=== PATIENT | male | born 1970 | race Two or more races ===

== ENCOUNTER 2024-01-12 14:15 | Outpatient (AMB) | payer MEDICARE, MEDICAID, SELFPAY ==
[2024-01-12 14:43] VITALS: BP 124/80; PULSE 73; O2SAT 97; BMI 35.1
--- NOTE | 2024-01-12 14:43 | HO.NEPHOV_ITS ---
HPI HPI Comments History of Present Illness Details I had the delight of seeing Pablo in follow-up of his renal transplant. 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 He underwent living unrelated renal transplant on 09/20/2023. He had stent removed on 10/10/2023. He had a panel reactive antibody of 25. Induction was done with Campath. He had no delayed graft function. He required no dialysis treatment posttransplant. CMV status of the donor was positive and recipient was positive as well. EBV status of the donor was negative and recipient was positive. Hepatitis-B core antibody for donor and recipient was negative. Hepatitis C virus antibody was negative for donor and recipient. Bk virus PCR was negative as of 12/21/2023. His immunosuppression included Envarsus and Mycophenolate. He did not have any rejection episodes post transplant. He had true randy on 40 the December 2023, results of which were pending at the time of this visit. He had some fluctuant blood pressure in the last few months which has been better. He had transaminitis which is resolved. His donor specific antibodies were negative as of 12/13/2023. His immunosuppression included Envarsus 2.5 mg daily and mycophenolate 540 mg twice daily. His Prophylaxis Therapy includes (Drug/Discontinuation Date) bactrim d/c 03/21/24, mycelex d/c 12/22/23 & valcyte d/c 03/16/24. He had no readmissions the 1st 3 months. Currently he feels well.He is requesting refill of sildenafil. [facility] Medical History (Updated 01/26/24 @ 06:45 by Harish Lentz MD) History of hepatitis C History of end stage renal disease Surgical History (Updated 01/12/24 @ 15:01 by Harish Lentz MD) History of kidney transplant Vital Signs 01/12/24 14:43 Height 5 ft 5 in Weight 211 lb BMI 35.1 BP 124/80 Blood Pressure Location Lt brachial Position Sitting Pulse 73 Pulse Source Pulse Oximeter Pulse Oximetry (%) 97 Oxygen Delivery Method Room Air Physical Exam Vital Signs: Last Vital Signs Pulse 73 01/12/24 14:43 BP 124/80 01/12/24 14:43 Pulse Ox 97 01/12/24 14:43 Oxygen Delivery Method Room Air 01/12/24 14:43 BMI result Body Mass Index 35.1 Const General: comfortable and no acute distress Orientation/consciousness: patient oriented x3 HEENT Head: Yes normocephalic Mouth: Normal oral and palatal mucosa present Eyes EOM: EOMs intact bilaterally Neck Neck: Yes supple Resp Auscultation: clear to auscultation bilaterally Cardio Jugular venous distension: no JVD Rate: regular rate GI Palpation (GI): Soft to palpation Auscultation: normal bowel sounds General: Yes no CVA tenderness Back/Spine/Pelvis Back: no CVA tenderness Skin General skin exam: no rashes or lesions noted Neuro General: patient oriented x3 and moves all extremities Extrem General: Yes no pedal edema Assessment & Plan Assessment & Plan (1) History of kidney transplant: Code(s): Z94.0 - Kidney transplant status (2) Hypertension: Code(s): I10 - Essential (primary) hypertension Qualifiers: Hypertension type: primary hypertension Qualified Code(s): I10 - Essential (primary) hypertension Plan 1. Allograft function: excellent function; serum creatinine stable 2. Immunosuppression: tolerating; monitoring levels; adjust accordingly 3. BP and volume status: may need to increase nifedipine if persistent; I think with increased activity and weight loss, this will improve. 4. Metabolic parameters: stable; follow up labs 5. Hematologic parameters: counts excellent 6. Prophylaxis/infection: reviewed; tolerating; no changes 7. Urologic: no issues 8. Other: needs to increase activity; weight loss emphasized Orders: Orders Creatinine 01/12/24 Z94.0 - Kidney transplant status Blood Urea Nitrogen 01/12/24 Z94.0 - Kidney transplant status Electrolytes 01/12/24 Z94.0 - Kidney transplant status Calcium 01/12/24 Z94.0 - Kidney transplant status Phosphorus 01/12/24 Z94.0 - Kidney transplant status Magnesium 01/12/24 Z94.0 - Kidney transplant status Complete Blood Count Auto Diff 01/12/24 Z94.0 - Kidney transplant status Tacrolimus Prograf 01/12/24 Z94.0 - Kidney transplant status Medications: New tadalafil (Cialis) administer approximately 30min before sexual activity; do not use more than 1 dose per 24hrs 20 mg PO DAILY PRN 15 tabs 4RF sexual activity tadalafil (Cialis) 20 mg PO DAILY 15 tabs 4RF Coding Level of Care Code Est Pt Level 4 (68195) Diagnoses History of kidney transplant Z94.0 Primary hypertension I10 Hypertension type: primary hypertension Results Reviewed Nephrology Results: Hgb 15.0 g/dl (14.0-18.0) 01/24/24 WBC 3.0 X10*3/uL (4.8-10.8) L 01/24/24 Plt Count 188 X10*3/uL (160-400) 01/24/24 Sodium 140 mmol/L (135-145) 01/24/24 Potassium 3.4 mmol/L (3.3-5.1) 01/24/24 Chloride 107 mmol/L (96-108) 01/24/24 Carbon Dioxide 25 mmol/L (22-29) 01/24/24 BUN 21 mg/dL (9-16) H 01/24/24 Creatinine 1.61 mg/dL (0.5-1.4) H 01/24/24 Calcium 10.0 mg/dL (8.4-10.2) 01/24/24 Phosphorus 2.2 mg/dL (2.7-4.5) L 01/24/24
== END 2024-01-12 15:09 | disposition home or self-care (01) ==
PROVIDERS: Visit Provider Internal Medicine Nephrology
DX: Z94.0 Kidney transplant status (principal); I10 Essential (primary) hypertension
CPT/HCPCS: 99214

== ENCOUNTER → 2024-01-12 14:15 | Outpatient (BNVA) | payer MEDICARE, MEDICAID, SELFPAY | PROVIDERS: Visit Provider Internal Medicine Nephrology | DX: I12.9 Hypertensive chronic kidney disease with stage 1 through stage 4 chronic kidney disease, or unspecified chronic kidney disease (principal); N18.6 End stage renal disease; Z86.19 Personal history of other infectious and parasitic diseases; Z94.0 Kidney transplant status | CPT/HCPCS: 99212 ==

== ENCOUNTER 2024-01-24 15:25 | Outpatient (REF) | payer MEDICARE, MEDICAID, SELFPAY ==
[2024-01-24 18:23] LABS: Anion Gap 11 (12-20); Blood Urea Nitrogen 21 mg/dL (9-16); Carbon Dioxide 25 mmol/L (22-29); Chloride 107 mmol/L (96-108); Estimated Glomerular Filt Rate 45; Magnesium 1.9 mg/dL (1.6-2.6); Phosphorus 2.2 mg/dL (2.7-4.5); Potassium 3.4 mmol/L (3.3-5.1); Sodium 140 mmol/L (135-145)
[2024-01-24 18:38] LABS: Basophils Percent Auto 0.7 % (0-2); Eosinophils Absolute Auto 0.2 X10*3/uL (0.0-0.4); Eosinophils Percent Auto 6.1 % (0-4); Hematocrit 46.3 % (42.0-52.0); Imm Gran Abs Auto 0.02 X10*3/uL (0.00-0.03); Imm Gran Pct Auto 0.7 % (0.0-0.4); Lymphocytes Absolute Auto 1.4 X10*3/uL (1.2-4.9); Lymphocytes Percent Auto 47.5 % (20-40); MANUAL DIFF FLAG SCAN; Mean Corpuscular HGB Conc 32.4 g/dl (31.0-36.0); Mean Corpuscular Hemoglobin 27.4 pg (27.0-33.0); Mean Corpuscular Volume 84.6 fL (80.0-98.0); Mean Platelet Volume 9.7 fL (9.4-12.4); Monocytes Absolute Auto 0.4 X10*3/uL (0.1-1.2); Monocytes Percent Auto 11.9 % (2-11); Neutrophils Percent Auto 33.1 % (45-73); Platelet Count 188 X10*3/uL (160-400); Red Blood Count 5.47 X10*6/uL (4.60-5.80); Red Cell Distribution Width 14.2 % (11.0-16.0); SCAN SMEAR FLAG 1
[2024-01-24 19:08] LABS: SLIDE REVIEW VERIFIED
== END 2024-01-24 15:26 | disposition home or self-care (01) ==
LOC: HO.HKASLDS 15:25
PROVIDERS: Visit Provider Internal Medicine Nephrology
DX: Z94.0 Kidney transplant status (principal)
CPT/HCPCS: 36415; 80051; 82310; 82565; 83735; 84100; 84520; 85025

== ENCOUNTER 2024-01-27 15:18 | Outpatient (AMB) | payer MEDICARE, MEDICAID, SELFPAY ==
[2024-01-27 15:24] VITALS: BP 132/80; PULSE 72; O2SAT 97; BMI 34.1
--- NOTE | 2024-01-27 15:24 | HO.NEPHOV_ITS ---
HPI HPI Comments History of Present Illness Details I had the delight of seeing Pablo in follow-up of his renal transplant. 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 He underwent living unrelated renal transplant on 09/20/2023. He had stent removed on 10/10/2023. He had a panel reactive antibody of 25. Induction was done with Campath. He had no delayed graft function. He required no dialysis treatment post transplant. CMV status of the donor was positive and recipient was positive as well. EBV status of the donor was negative and recipient was positive. Hepatitis-B core antibody for donor and recipient was negative. Hepatitis C virus antibody was negative for donor and recipient. Bk virus PCR was negative as of 12/21/2023. His immunosuppression included Envarsus and Mycophenolate. He did not have any rejection episodes post transplant. He had some fluctuant blood pressure in the last few months which has been better. He had transaminitis which is resolved. His donor specific antibodies were negative as of 12/13/2023. His immunosuppression included Envarsus 2.5 mg daily and mycophenolate 540 mg twice daily. His Prophylaxis Therapy includes (Drug/Discontinuation Date) bactrim d/c 03/21/24, mycelex d/c 12/22/23 & valcyte d/c 03/16/24. He had no readmissions the 1st 3 months. Currently he feels well. [facility] Medical History (Updated 01/26/24 @ 06:45 by Harish Lentz MD) History of hepatitis C History of end stage renal disease Surgical History History of kidney transplant Vital Signs 01/27/24 15:24 Height 5 ft 5 in Weight 205 lb BMI 34.1 BP 132/80 Blood Pressure Location Rt brachial Position Sitting Pulse 72 Pulse Source Pulse Oximeter Pulse Oximetry (%) 97 Oxygen Delivery Method Room Air Physical Exam Vital Signs: Last Vital Signs Pulse 72 01/27/24 15:24 BP 132/80 01/27/24 15:24 Pulse Ox 97 01/27/24 15:24 Oxygen Delivery Method Room Air 01/27/24 15:24 BMI result Body Mass Index 34.1 Const General: comfortable and no acute distress Orientation/consciousness: patient oriented x3 HEENT Head: Yes normocephalic Mouth: Normal oral and palatal mucosa present Eyes EOM: EOMs intact bilaterally Neck Neck: Yes supple Resp Auscultation: clear to auscultation bilaterally Cardio Jugular venous distension: no JVD Rate: regular rate GI Palpation (GI): Soft to palpation Auscultation: normal bowel sounds General: Yes no CVA tenderness Back/Spine/Pelvis Back: no CVA tenderness Skin General skin exam: no rashes or lesions noted Neuro General: patient oriented x3 and moves all extremities Extrem General: Yes no pedal edema Assessment & Plan Assessment & Plan (1) History of kidney transplant: Code(s): Z94.0 - Kidney transplant status (2) Hypertension: Code(s): I10 - Essential (primary) hypertension Qualifiers: Hypertension type: primary hypertension Qualified Code(s): I10 - Essential (primary) hypertension Plan 1. Allograft function: excellent function; serum creatinine stable 2. Immunosuppression: tolerating; monitoring levels; adjust accordingly 3. BP and volume status: may need to increase nifedipine if persistent; I think with increased activity and weight loss, this will improve. 4. Metabolic parameters: stable; follow up labs 5. Hematologic parameters: counts excellent 6. Prophylaxis/infection: reviewed; tolerating; no changes 7. Urologic: no issues 8. Other: needs to increase activity; weight loss emphasized Orders: Orders Tacrolimus Prograf 01/30/24 I10 - Essential (primary) hypertension, Z94.0 - Kidney transplant status Creatinine 01/30/24 I10 - Essential (primary) hypertension, Z94.0 - Kidney transplant status Complete Blood Count Auto Diff 01/30/24 I10 - Essential (primary) hypertension, Z94.0 - Kidney transplant status Protein Creatinine Ratio, Ur 01/30/24 I10 - Essential (primary) hypertension, Z94.0 - Kidney transplant status Electrolytes 01/30/24 I10 - Essential (primary) hypertension, Z94.0 - Kidney transplant status Calcium 01/30/24 I10 - Essential (primary) hypertension, Z94.0 - Kidney transplant status Blood Urea Nitrogen 01/30/24 I10 - Essential (primary) hypertension, Z94.0 - Kidney transplant status Medications: Refilled tadalafil (Cialis) administer approximately 30min before sexual activity; do not use more than 1 dose per 24hrs 20 mg PO DAILY PRN 15 tabs 4RF sexual activity Coding Level of Care Code Est Pt Level 4 (88586) Diagnoses History of kidney transplant Z94.0 Primary hypertension I10 Hypertension type: primary hypertension Results Reviewed Nephrology Results: Hgb 15.3 g/dl (14.0-18.0) 01/30/24 WBC 4.8 X10*3/uL (4.8-10.8) 01/30/24 Plt Count 188 X10*3/uL (160-400) 01/30/24 Sodium 142 mmol/L (135-145) 01/30/24 Potassium 3.4 mmol/L (3.3-5.1) 01/30/24 Chloride 106 mmol/L (96-108) 01/30/24 Carbon Dioxide 28 mmol/L (22-29) 01/30/24 BUN 19 mg/dL (9-16) H 01/30/24 Creatinine 1.52 mg/dL (0.5-1.4) H 01/30/24 Calcium 10.2 mg/dL (8.4-10.2) 01/30/24 Phosphorus 2.2 mg/dL (2.7-4.5) L 01/24/24 Urine Creatinine 72.00 mg/dL 01/30/24 Protein/Creatinin Ratio 0.29 (<0.2) H 01/30/24
== END 2024-01-27 15:46 | disposition home or self-care (01) ==
PROVIDERS: Visit Provider Internal Medicine Nephrology
DX: Z94.0 Kidney transplant status (principal); I10 Essential (primary) hypertension
CPT/HCPCS: 99214

== ENCOUNTER → 2024-01-27 15:18 | Outpatient (BNVA) | payer BC, MEDICARE, MEDICAID, SELFPAY | PROVIDERS: Visit Provider Internal Medicine Nephrology | DX: I10 Essential (primary) hypertension (principal); Z94.0 Kidney transplant status | CPT/HCPCS: 99212 ==

== ENCOUNTER 2024-01-30 08:12 | Outpatient (REF) | payer MEDICARE, MEDICAID, SELFPAY ==
[2024-01-30 10:41] LABS: MANUAL DIFF FLAG NO
[2024-01-30 10:50] LABS: Basophils Percent Auto 0.8 % (0-2); Eosinophils Absolute Auto 0.2 X10*3/uL (0.0-0.4); Eosinophils Percent Auto 3.8 % (0-4); Hematocrit 48.2 % (42.0-52.0); Hemoglobin 15.3 g/dl (14.0-18.0); Imm Gran Abs Auto 0.05 X10*3/uL (0.00-0.03); Lymphocytes Absolute Auto 1.7 X10*3/uL (1.2-4.9); Lymphocytes Percent Auto 35.1 % (20-40); Mean Corpuscular HGB Conc 31.7 g/dl (31.0-36.0); Mean Corpuscular Volume 85.2 fL (80.0-98.0); Mean Platelet Volume 9.5 fL (9.4-12.4); Monocytes Absolute Auto 0.6 X10*3/uL (0.1-1.2); Monocytes Percent Auto 12.5 % (2-11); Neutrophils Absolute Auto 2.2 x10*3/uL (2.0-8.3); Neutrophils Percent Auto 46.8 % (45-73); Platelet Count 188 X10*3/uL (160-400); Red Blood Count 5.66 X10*6/uL (4.60-5.80); Red Cell Distribution Width 14.3 % (11.0-16.0); White Blood Count 4.8 X10*3/uL (4.8-10.8)
[2024-01-30 11:35] LABS: Protein/Creatinine Ratio, Ur 0.29 (<0.2); Total Protein Urine Random 21 mg/dL (<12)
[2024-01-30 11:36] LABS: Anion Gap 11 (12-20); Blood Urea Nitrogen 19 mg/dL (9-16); Calcium 10.2 mg/dL (8.4-10.2); Carbon Dioxide 28 mmol/L (22-29); Chloride 106 mmol/L (96-108); Estimated Glomerular Filt Rate 48; Potassium 3.4 mmol/L (3.3-5.1); Sodium 142 mmol/L (135-145)
[2024-02-01 11:13] LABS: Tacrolimus Prograf 10.4 mcg/L
== END 2024-01-30 08:13 | disposition home or self-care (01) ==
LOC: HO.10HDL 08:12
PROVIDERS: Visit Provider Internal Medicine Nephrology
DX: I10 Essential (primary) hypertension (principal); Z94.0 Kidney transplant status
CPT/HCPCS: 36415; 80051; 80197; 82310; 82565; 82570; 84156; 84520; 85025

== ENCOUNTER 2024-02-24 15:22 | Outpatient (AMB) | payer BC, MEDICARE, MEDICAID, SELFPAY ==
--- NOTE | 2024-02-24 15:28 | HO.NEPHOV ---
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 He underwent living unrelated renal transplant on 09/20/2023. He had stent removed on 10/10/2023. He had a panel reactive antibody of 25. Induction was done with Campath. He had no delayed graft function. He required no dialysis treatment post transplant. CMV status of the donor was positive and recipient was positive as well. EBV status of the donor was negative and recipient was positive. Hepatitis-B core antibody for donor and recipient was negative. Hepatitis C virus antibody was negative for donor and recipient. Bk virus PCR was negative as of 12/21/2023. His immunosuppression included Envarsus and Mycophenolate. He did not have any rejection episodes post transplant. He had some fluctuant blood pressure in the last few months which has been better. He had transaminitis which is resolved. His donor specific antibodies were negative as of 12/13/2023. His immunosuppression included Envarsus 2.5 mg daily and mycophenolate 540 mg twice daily. His Prophylaxis Therapy includes (Drug/Discontinuation Date) bactrim d/c 03/21/24, mycelex d/c 12/22/23 & valcyte d/c 03/16/24. He had no readmissions the 1st 3 months. Currently he feels well. He has not had any recent blood work which he is going to do on coming Tuesday [facility] Medical History (Updated 01/26/24 @ 06:45 by Harish Lentz MD) History of hepatitis C History of end stage renal disease Surgical History History of kidney transplant Physical Exam Vital Signs: Last Vital Signs Pulse 72 02/24/24 15:29 BP 130/70 02/24/24 15:29 Pulse Ox 96 05/03/24 15:29 Oxygen Delivery Method Room Air 02/24/24 15:29 BMI result Body Mass Index 34.1 Const General: comfortable and no acute distress Orientation/consciousness: patient oriented x3 HEENT Head: Yes normocephalic Mouth: Normal oral and palatal mucosa present Eyes EOM: EOMs intact bilaterally Neck Neck: Yes supple Resp Auscultation: clear to auscultation bilaterally Cardio Jugular venous distension: no JVD Rate: regular rate GI Palpation (GI): Soft to palpation Auscultation: normal bowel sounds General: Yes no CVA tenderness Back/Spine/Pelvis Back: no CVA tenderness Skin General skin exam: no rashes or lesions noted Neuro General: patient oriented x3 and moves all extremities Extrem General: Yes no pedal edema Results Reviewed Nephrology Results: Hgb 15.3 g/dl (14.0-18.0) 01/30/24 WBC 4.8 X10*3/uL (4.8-10.8) 01/30/24 Plt Count 188 X10*3/uL (160-400) 01/30/24 Sodium 142 mmol/L (135-145) 01/30/24 Potassium 3.4 mmol/L (3.3-5.1) 01/30/24 Chloride 106 mmol/L (96-108) 01/30/24 Carbon Dioxide 28 mmol/L (22-29) 01/30/24 BUN 19 mg/dL (9-16) H 01/30/24 Creatinine 1.52 mg/dL (0.5-1.4) H 01/30/24 Calcium 10.2 mg/dL (8.4-10.2) 01/30/24 Phosphorus 2.2 mg/dL (2.7-4.5) L 01/24/24 Urine Creatinine 72.00 mg/dL 01/30/24 Protein/Creatinin Ratio 0.29 (<0.2) H 01/30/24 Assessment & Plan Assessment & Plan (1) History of kidney transplant: Code(s): Z94.0 - Kidney transplant status Category: Surgical (2) Hypertension: Code(s): I10 - Essential (primary) hypertension Category: Medical Qualifiers: Hypertension type: primary hypertension Qualified Code(s): I10 - Essential (primary) hypertension Plan 1. Allograft function: excellent function; serum creatinine stable 2. Immunosuppression: tolerating; monitoring levels; adjust accordingly; Prophylaxis Therapy includes (Drug/Discontinuation Date) bactrim d/c 03/21/24, mycelex d/c 12/22/23 & valcyte d/c 03/16/24. 3. BP and volume status: may need to increase nifedipine if BP high & persistent; I think with increased activity and weight loss, this will improve. 4. Metabolic parameters: stable; follow up labs 5. Hematologic parameters: counts excellent 6. Prophylaxis/infection: reviewed; tolerating; no changes 7. Urologic: no issues 8. Other: needs to increase activity; weight loss emphasized Orders: Orders Creatinine Today I10 - Essential (primary) hypertension, Z94.0 - Kidney transplant status Electrolytes Today I10 - Essential (primary) hypertension, Z94.0 - Kidney transplant status Phosphorus Today I10 - Essential (primary) hypertension, Z94.0 - Kidney transplant status Tacrolimus Prograf Today I10 - Essential (primary) hypertension, Z94.0 - Kidney transplant status Blood Urea Nitrogen 3 Weeks I10 - Essential (primary) hypertension, Z94.0 - Kidney transplant status Electrolytes 3 Weeks I10 - Essential (primary) hypertension, Z94.0 - Kidney transplant status Blood Urea Nitrogen Today I10 - Essential (primary) hypertension, Z94.0 - Kidney transplant status Calcium Today I10 - Essential (primary) hypertension, Z94.0 - Kidney transplant status Alanine Aminotransferase Today I10 - Essential (primary) hypertension, Z94.0 - Kidney transplant status Aspartate Amino Transferase Today I10 - Essential (primary) hypertension, Z94.0 - Kidney transplant status Other Ref Test - Misc Today I10 - Essential (primary) hypertension, Z94.0 - Kidney transplant status Other Ref Test - Misc 3 Days I10 - Essential (primary) hypertension, Z94.0 - Kidney transplant status Creatinine 3 Weeks I10 - Essential (primary) hypertension, Z94.0 - Kidney transplant status Calcium 3 Weeks I10 - Essential (primary) hypertension, Z94.0 - Kidney transplant status Phosphorus 3 Weeks I10 - Essential (primary) hypertension, Z94.0 - Kidney transplant status Magnesium Today I10 - Essential (primary) hypertension, Z94.0 - Kidney transplant status Coding Level of Care Code Est Pt Level 4 (18352) Diagnoses History of kidney transplant Z94.0 Primary hypertension I10 Hypertension type: primary hypertension
[2024-02-24 15:29] VITALS: BP 130/70; PULSE 72; O2SAT 96; BMI 34.1
== END 2024-02-24 15:56 | disposition home or self-care (01) ==
PROVIDERS: PCP Physician Assistant; Visit Provider Internal Medicine Nephrology
DX: Z94.0 Kidney transplant status (principal); I10 Essential (primary) hypertension
CPT/HCPCS: 99214

== ENCOUNTER → 2024-02-24 15:22 | Outpatient (BNVA) | payer BC, MEDICARE, MEDICAID, SELFPAY | PROVIDERS: PCP Physician Assistant; Visit Provider Internal Medicine Nephrology | DX: I10 Essential (primary) hypertension (principal); Z94.0 Kidney transplant status | CPT/HCPCS: 99212 ==

== ENCOUNTER 2024-02-27 08:31 | Outpatient (REF) | payer BC, MEDICARE, MEDICAID, SELFPAY ==
[2024-02-27 11:12] LABS: Alanine Aminotransferase 24 U/L (0-40); Anion Gap 14 (12-20); Aspartate Amino Transferase 15 U/L (5-37); Blood Urea Nitrogen 22 mg/dL (9-16); Calcium 10.3 mg/dL (8.4-10.2); Carbon Dioxide 23 mmol/L (22-29); Chloride 107 mmol/L (96-108); Estimated Glomerular Filt Rate 44; Magnesium 1.7 mg/dL (1.6-2.6); Phosphorus 2.3 mg/dL (2.7-4.5); Potassium 3.5 mmol/L (3.3-5.1); Sodium 140 mmol/L (135-145)
[2024-02-28 11:34] LABS: Tacrolimus Prograf 17.7 mcg/L
== END 2024-02-27 08:32 | disposition home or self-care (01) ==
LOC: HO.10HDL 08:31
PROVIDERS: Visit Provider Internal Medicine Nephrology
DX: I10 Essential (primary) hypertension (principal); Z94.0 Kidney transplant status; Z79.899 Other long term (current) drug therapy
CPT/HCPCS: 36415; 80051; 80197; 82310; 82565; 83735; 84100; 84450; 84460; 84520; 87799

== ENCOUNTER 2024-03-09 08:00 | Outpatient (REF) | payer BC, MEDICARE, MEDICAID, SELFPAY ==
[2024-03-09 11:25] LABS: Anion Gap 13 (12-20); Blood Urea Nitrogen 21 mg/dL (9-16); Carbon Dioxide 26 mmol/L (22-29); Chloride 107 mmol/L (96-108); Estimated Glomerular Filt Rate 51; Phosphorus 2.4 mg/dL (2.7-4.5); Potassium 3.8 mmol/L (3.3-5.1); Sodium 142 mmol/L (135-145)
[2024-03-10 13:08] LABS: Tacrolimus Prograf 7.9 mcg/L
== END 2024-03-09 08:01 | disposition home or self-care (01) ==
LOC: HO.10HDL 08:00
PROVIDERS: Visit Provider Internal Medicine Nephrology
DX: I10 Essential (primary) hypertension (principal); Z94.0 Kidney transplant status
CPT/HCPCS: 36415; 80051; 80197; 82310; 82565; 84100; 84520

== ENCOUNTER 2024-03-14 15:36 | Outpatient (AMB) | payer BC, MEDICARE, MEDICAID, SELFPAY ==
--- NOTE | 2024-03-14 15:41 | HO.NEPHOV_ITS ---
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 He underwent living unrelated renal transplant on 09/20/2023. He had stent removed on 10/10/2023. He had a panel reactive antibody of 25. Induction was done with Campath. He had no delayed graft function. He required no dialysis treatment post transplant. CMV status of the donor was positive and recipient was positive as well. EBV status of the donor was negative and recipient was positive. Hepatitis-B core antibody for donor and recipient was negative. Hepatitis C virus antibody was negative for donor and recipient. Bk virus PCR was negative as of 12/21/2023. His immunosuppression included Envarsus and Mycophenolate. He did not have any rejection episodes post transplant. He had some fluctuant blood pressure in the last few months which has been better. He had transaminitis which is resolved. His donor specific antibodies were negative as of 12/13/2023. His immunosuppression included Envarsus 2.5 mg daily and mycophenolate 540 mg twice daily. His Prophylaxis Therapy includes (Drug/Discontinuation Date) bactrim d/c 03/21/24, mycelex d/c 12/22/23 & valcyte d/c 03/16/24. He had no readmissions the 1st 3 months. Currently he feels well. [facility] Medical History (Updated 01/26/24 @ 06:45 by Harish Lentz MD) History of hepatitis C History of end stage renal disease Surgical History History of kidney transplant Physical Exam Vital Signs: Last Vital Signs Pulse 73 03/14/24 15:42 BP 114/70 03/14/24 15:42 Pulse Ox 96 03/14/24 15:42 Oxygen Delivery Method Room Air 03/14/24 15:42 BMI result Body Mass Index 34.0 Const General: comfortable and no acute distress Orientation/consciousness: patient oriented x3 HEENT Head: Yes normocephalic Mouth: Normal oral and palatal mucosa present Eyes EOM: EOMs intact bilaterally Neck Neck: Yes supple Resp Auscultation: clear to auscultation bilaterally Cardio Jugular venous distension: no JVD Rate: regular rate GI Palpation (GI): Soft to palpation Auscultation: normal bowel sounds General: Yes no CVA tenderness Back/Spine/Pelvis Back: no CVA tenderness Skin General skin exam: no rashes or lesions noted Neuro General: patient oriented x3 and moves all extremities Extrem General: Yes no pedal edema Results Reviewed Nephrology Results: Hgb 15.3 g/dl (14.0-18.0) 01/30/24 WBC 4.8 X10*3/uL (4.8-10.8) 01/30/24 Plt Count 188 X10*3/uL (160-400) 01/30/24 Sodium 142 mmol/L (135-145) 03/09/24 Potassium 3.8 mmol/L (3.3-5.1) 03/09/24 Chloride 107 mmol/L (96-108) 03/09/24 Carbon Dioxide 26 mmol/L (22-29) 03/09/24 BUN 21 mg/dL (9-16) H 03/09/24 Creatinine 1.45 mg/dL (0.5-1.4) H 03/09/24 Calcium 10.0 mg/dL (8.4-10.2) 03/09/24 Phosphorus 2.4 mg/dL (2.7-4.5) L 03/09/24 Urine Creatinine 72.00 mg/dL 01/30/24 Protein/Creatinin Ratio 0.29 (<0.2) H 01/30/24 Assessment & Plan Assessment & Plan (1) Hypertension: Code(s): I10 - Essential (primary) hypertension Category: Medical Qualifiers: Hypertension type: primary hypertension Qualified Code(s): I10 - Essential (primary) hypertension (2) History of kidney transplant: Code(s): Z94.0 - Kidney transplant status Category: Surgical Plan 1. Allograft function: excellent function; serum creatinine stable 2. Immunosuppression: tolerating; monitoring levels; adjust accordingly; Prophylaxis Therapy includes (Drug/Discontinuation Date) bactrim d/c 03/21/24, mycelex d/c 12/22/23 & valcyte d/c 03/16/24. 3. BP and volume status: may need to increase nifedipine if BP high & persistent; I think with increased activity and weight loss, this will improve. 4. Metabolic parameters: stable; follow up labs 5. Hematologic parameters: counts excellent 6. Prophylaxis/infection: reviewed; tolerating; no changes 7. Urologic: no issues 8. Other: needs to increase activity; weight loss emphasized Orders: Orders Blood Urea Nitrogen Today I10 - Essential (primary) hypertension, Z94.0 - Kidney transplant status Alanine Aminotransferase Today I10 - Essential (primary) hypertension, Z94.0 - Kidney transplant status Aspartate Amino Transferase Today I10 - Essential (primary) hypertension, Z94.0 - Kidney transplant status Tacrolimus Prograf Today I10 - Essential (primary) hypertension, Z94.0 - Kidney transplant status Complete Blood Count Auto Diff Today I10 - Essential (primary) hypertension, Z94.0 - Kidney transplant status Electrolytes Today I10 - Essential (primary) hypertension, Z94.0 - Kidney transplant status Creatinine Today I10 - Essential (primary) hypertension, Z94.0 - Kidney transplant status Calcium Today I10 - Essential (primary) hypertension, Z94.0 - Kidney transplant status Phosphorus Today I10 - Essential (primary) hypertension, Z94.0 - Kidney transpl ant status Magnesium Today I10 - Essential (primary) hypertension, Z94.0 - Kidney transplant status Coding Level of Care Code Est Pt Level 4 (57542) Diagnoses Primary hypertension I10 Hypertension type: primary hypertension History of kidney transplant Z94.0
[2024-03-14 15:42] VITALS: BP 114/70; PULSE 73; O2SAT 96; BMI 34.0
== END 2024-03-14 16:08 | disposition home or self-care (01) ==
LOC: HO.HKA 15:36
PROVIDERS: PCP Physician Assistant; Visit Provider Internal Medicine Nephrology
DX: I10 Essential (primary) hypertension (principal); Z94.0 Kidney transplant status
CPT/HCPCS: 99214

== ENCOUNTER → 2024-03-14 15:36 | Outpatient (BNVA) | payer BC, MEDICARE, MEDICAID, SELFPAY | PROVIDERS: PCP Physician Assistant; Visit Provider Internal Medicine Nephrology | DX: I10 Essential (primary) hypertension (principal); Z94.0 Kidney transplant status | CPT/HCPCS: 99212 ==

== ENCOUNTER 2024-04-11 09:13 | Outpatient (REF) | payer BC, MEDICARE, MEDICAID, SELFPAY ==
[2024-04-11 11:37] LABS: MANUAL DIFF FLAG NO
[2024-04-11 11:42] LABS: Basophils Percent Auto 0.4 % (0-2); Eosinophils Absolute Auto 0.2 X10*3/uL (0.0-0.4); Eosinophils Percent Auto 2.9 % (0-4); Hematocrit 49.6 % (42.0-52.0); Hemoglobin 15.4 g/dl (14.0-18.0); Imm Gran Abs Auto 0.01 X10*3/uL (0.00-0.03); Imm Gran Pct Auto 0.2 % (0.0-0.4); Lymphocytes Absolute Auto 1.7 X10*3/uL (1.2-4.9); Lymphocytes Percent Auto 29.9 % (20-40); Mean Corpuscular Hemoglobin 26.8 pg (27.0-33.0); Mean Corpuscular Volume 86.4 fL (80.0-98.0); Monocytes Absolute Auto 0.5 X10*3/uL (0.1-1.2); Monocytes Percent Auto 9.3 % (2-11); Neutrophils Absolute Auto 3.2 x10*3/uL (2.0-8.3); Neutrophils Percent Auto 57.3 % (45-73); Platelet Count 170 X10*3/uL (160-400); Red Blood Count 5.74 X10*6/uL (4.60-5.80); Red Cell Distribution Width 14.4 % (11.0-16.0); White Blood Count 5.6 X10*3/uL (4.8-10.8)
[2024-04-11 12:08] LABS: Alanine Aminotransferase 24 U/L (0-40); Anion Gap 11 (12-20); Aspartate Amino Transferase 17 U/L (5-37); Blood Urea Nitrogen 21 mg/dL (9-16); Calcium 10.1 mg/dL (8.4-10.2); Carbon Dioxide 32 mmol/L (22-29); Chloride 105 mmol/L (96-108); Estimated Glomerular Filt Rate 45; Magnesium 1.7 mg/dL (1.6-2.6); Phosphorus 2.8 mg/dL (2.7-4.5); Sodium 145 mmol/L (135-145)
[2024-04-12 13:14] LABS: Tacrolimus Prograf 5.3 mcg/L
== END 2024-04-11 09:14 | disposition home or self-care (01) ==
LOC: HO.10HDL 09:13
PROVIDERS: Visit Provider Internal Medicine Nephrology
DX: I10 Essential (primary) hypertension (principal); Z94.0 Kidney transplant status
CPT/HCPCS: 36415; 80051; 80197; 82310; 82565; 83735; 84100; 84450; 84460; 84520; 85025

== ENCOUNTER 2024-04-18 15:26 | Outpatient (AMB) | payer BC, MEDICARE, SELFPAY ==
--- NOTE | 2024-04-18 15:26 | HO.NEPHOV_ITS ---
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 He underwent living unrelated renal transplant on . He had stent removed on 10/10/2023. He had a panel reactive antibody of 25. Induction was done with Campath. He had no delayed graft function. He required no dialysis treatment post transplant. CMV status of the donor was positive and recipient was positive as well. EBV status of the donor was negative and recipient was positive. Hepatitis-B core antibody for donor and recipient was negative. Hepatitis C virus antibody was negative for donor and recipient. Bk virus PCR was negative as of 12/21/2023. His immunosuppression included Envarsus and Mycophenolate. He did not have any rejection episodes post transplant. He had some fluctuant blood pressure in the last few months which has been better. He had transaminitis which is resolved. His donor specific antibodies were negative as of 12/13/2023. His immunosuppression included Envarsus 2.5 mg daily and mycophenolate 540 mg twice daily. His Prophylaxis Therapy included (Drug/Discontinuation Date) bactrim d/c 03/21/24, mycelex d/c 12/22/23 & valcyte d/c 03/16/24. He had no readmissions the 1st 3 months. Currently he feels well. [facility] Medical History (Updated 01/26/24 @ 06:45 by Harish Lentz MD) History of hepatitis C History of end stage renal disease Surgical History History of kidney transplant Review of Systems Const All systems reviewed & are unremarkable except as noted in HPI and below Physical Exam Vital Signs: Last Vital Signs Pulse 76 04/18/24 15:27 BP 110/60 04/18/24 15:27 Pulse Ox 96 04/18/24 15:27 Oxygen Delivery Method Room Air 04/18/24 15:27 BMI result Body Mass Index 34.1 Const General: comfortable and no acute distress Orientation/consciousness: patient oriented x3 HEENT Head: Yes normocephalic Mouth: Normal oral and palatal mucosa present Eyes EOM: EOMs intact bilaterally Neck Neck: Yes supple Resp Auscultation: clear to auscultation bilaterally Cardio Jugular venous distension: no JVD Rate: regular rate GI Palpation (GI): Soft to palpation Auscultation: normal bowel sounds General: Yes no CVA tenderness Back/Spine/Pelvis Back: no CVA tenderness Skin General skin exam: no rashes or lesions noted Neuro General: patient oriented x3 and moves all extremities Extrem General: Yes no pedal edema Results Reviewed Nephrology Results: Hgb 15.4 g/dl (14.0-18.0) 04/11/24 WBC 5.6 X10*3/uL (4.8-10.8) 04/11/24 Plt Count 170 X10*3/uL (160-400) 04/11/24 Sodium 145 mmol/L (135-145) 04/11/24 Potassium 3.0 mmol/L (3.3-5.1) L 04/11/24 Chloride 105 mmol/L (96-108) 04/11/24 Carbon Dioxide 32 mmol/L (22-29) H 04/11/24 BUN 21 mg/dL (9-16) H 04/11/24 Creatinine 1.60 mg/dL (0.5-1.4) H 04/11/24 Calcium 10.1 mg/dL (8.4-10.2) 04/11/24 Phosphorus 2.8 mg/dL (2.7-4.5) 04/11/24 Urine Creatinine 72.00 mg/dL 01/30/24 Protein/Creatinin Ratio 0.29 (<0.2) H 01/30/24 Assessment & Plan Assessment & Plan (1) History of kidney transplant: Code(s): Z94.0 - Kidney transplant status Category: Surgical (2) Hypertension: Code(s): I10 - Essential (primary) hypertension Category: Medical Qualifiers: Hypertension type: primary hypertension Qualified Code(s): I10 - Essential (primary) hypertension Plan 1. Allograft function: excellent function; serum creatinine stable 2. Immunosuppression: tolerating; monitoring levels; adjust accordingly; Prophylaxis Therapy included (Drug/Discontinuation Date) bactrim d/c 03/21/24, mycelex d/c 12/22/23 & valcyte d/c 03/16/24. 3. BP and volume status: Vol status optimal. BP at goal 4. Metabolic parameters: stable; follow up labs 5. Hematologic parameters: counts excellent 6. Prophylaxis/infection: reviewed; tolerating; no changes 7. Urologic: no issues 8. Other: needs to increase activity; weight loss emphasized Orders: Orders Tacrolimus Prograf 04/18/24 I10 - Essential (primary) hypertension, Z94.0 - Kidney transplant status Creatinine 04/18/24 I10 - Essential (primary) hypertension, Z94.0 - Kidney transplant status Blood Urea Nitrogen 04/18/24 I10 - Essential (primary) hypertension, Z94.0 - Kidney transplant status Calcium 04/18/24 I10 - Essential (primary) hypertension, Z94.0 - Kidney transplant status Complete Blood Count Auto Diff 04/18/24 I10 - Essential (primary) hypertension, Z94.0 - Kidney transplant status Electrolytes 04/18/24 I10 - Essential (primary) hypertension, Z94.0 - Kidney transplant status Magnesium 04/18/24 I10 - Essential (primary) hypertension, Z94.0 - Kidney transplant status Coding Level of Care Code Est Pt Level 4 (35744) Diagnoses History of kidney transplant Z94.0 Primary hypertension I10 Hypertension type: primary hypertension
[2024-04-18 15:27] VITALS: BP 110/60; PULSE 76; O2SAT 96; BMI 34.1
== END 2024-04-18 16:02 | disposition home or self-care (01) ==
PROVIDERS: PCP Physician Assistant; Visit Provider Internal Medicine Nephrology
DX: Z94.0 Kidney transplant status (principal); I10 Essential (primary) hypertension
CPT/HCPCS: 99214

== ENCOUNTER → 2024-04-18 15:26 | Outpatient (BNVA) | payer BC, MEDICARE, MEDICAID, SELFPAY | PROVIDERS: PCP Physician Assistant; Visit Provider Internal Medicine Nephrology ==

== ENCOUNTER 2024-05-04 08:11 | Outpatient (REF) | payer BC, MEDICARE, SELFPAY ==
[2024-05-04 11:21] LABS: Anion Gap 11 (12-20); Blood Urea Nitrogen 15 mg/dL (9-16); Calcium 10.3 mg/dL (8.4-10.2); Carbon Dioxide 29 mmol/L (22-29); Chloride 105 mmol/L (96-108); Estimated Glomerular Filt Rate 47; Magnesium 1.8 mg/dL (1.6-2.6); Potassium 3.6 mmol/L (3.3-5.1); Sodium 141 mmol/L (135-145)
[2024-05-04 11:23] LABS: MANUAL DIFF FLAG NO
[2024-05-04 11:37] LABS: Basophils Absolute Auto 0.1 X10*3/uL (0.0-0.2); Basophils Percent Auto 0.8 % (0-2); Eosinophils Absolute Auto 0.2 X10*3/uL (0.0-0.4); Eosinophils Percent Auto 2.9 % (0-4); Hematocrit 51.3 % (42.0-52.0); Hemoglobin 16.1 g/dl (14.0-18.0); Imm Gran Abs Auto 0.02 X10*3/uL (0.00-0.03); Imm Gran Pct Auto 0.3 % (0.0-0.4); Lymphocytes Absolute Auto 1.9 X10*3/uL (1.2-4.9); Lymphocytes Percent Auto 28.5 % (20-40); Mean Corpuscular HGB Conc 31.4 g/dl (31.0-36.0); Mean Corpuscular Hemoglobin 26.9 pg (27.0-33.0); Mean Corpuscular Volume 85.6 fL (80.0-98.0); Mean Platelet Volume 9.5 fL (9.4-12.4); Monocytes Absolute Auto 0.4 X10*3/uL (0.1-1.2); Monocytes Percent Auto 6.1 % (2-11); Neutrophils Percent Auto 61.4 % (45-73); Platelet Count 196 X10*3/uL (160-400); Red Blood Count 5.99 X10*6/uL (4.60-5.80); Red Cell Distribution Width 14.4 % (11.0-16.0); White Blood Count 6.6 X10*3/uL (4.8-10.8)
[2024-05-05 16:14] LABS: Tacrolimus Prograf 7.4 mcg/L
== END 2024-05-04 08:12 | disposition home or self-care (01) ==
LOC: HO.10HDL 08:11
PROVIDERS: Visit Provider Internal Medicine Nephrology
DX: I10 Essential (primary) hypertension (principal); Z94.0 Kidney transplant status; Z79.899 Other long term (current) drug therapy
CPT/HCPCS: 36415; 80051; 80197; 82310; 82565; 83735; 84520; 85025

== ENCOUNTER 2024-05-09 15:14 | Outpatient (AMB) | payer BC, MEDICARE, SELFPAY ==
[2024-05-09 15:28] VITALS: BP 116/70; PULSE 84; O2SAT 96; BMI 34.8
--- NOTE | 2024-05-09 15:28 | HO.NEPHOV_ITS ---
Vital Signs 05/09/24 15:28 Height 5 ft 5 in Weight 209 lb BMI 34.8 BP 116/70 Blood Pressure Location Rt brachial Position Sitting Pulse 84 Pulse Source Pulse Oximeter Pulse Oximetry (%) 96 Oxygen Delivery Method Room Air Intake Visit Reasons: Transplant/ Conf Accompanied by: Self / Same As Patient Allergies Penicillins Allergy (Mild, Verified 05/09/24 15:30) Unknown HPI Comments Details: I had the delight of seeing Pablo in follow-up of his renal transplant. 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 He underwent living unrelated renal transplant on 09/20/2023. He had stent removed on 10/10/2023. He had a panel reactive antibody of 25. Induction was done with Campath. He had no delayed graft function. He required no dialysis treatment post transplant. CMV status of the donor was positive and recipient was positive as well. EBV status of the donor was negative and recipient was positive. Hepatitis-B core antibody for donor and recipient was negative. Hepatitis C virus antibody was negative for donor and recipient. Bk virus PCR was negative as of 12/21/2023. His immunosuppression included Envarsus and Mycophenolate. He did not have any rejection episodes post transplant. He had some fluctuant blood pressure in the last few months which has been better. He had transaminitis which is resolved. His donor specific antibodies were negative as of 12/13/2023. His immunosuppression included Envarsus 2.5 mg daily and mycophenolate 540 mg twice daily. His Prophylaxis Therapy included (Drug/Discontinuation Date) bactrim d/c ed 03/21/24, mycelex d/c ed 12/22/23 & valcyte d/c ed 03/16/24. He had no readmissions the 1st 3 months. Currently he feels well. [facility] Medical History (Updated 01/26/24 @ 06:45 by Harish Lentz MD) History of hepatitis C History of end stage renal disease Surgical History History of kidney transplant Physical Exam Vital Signs: Last Vital Signs Pulse 84 05/09/24 15:28 BP 116/70 05/09/24 15:28 Pulse Ox 96 05/09/24 15:28 Oxygen Delivery Method Room Air 05/09/24 15:28 BMI result Body Mass Index 34.8 Const General: comfortable and no acute distress Orientation/consciousness: patient oriented x3 HEENT Head: Yes normocephalic Mouth: Normal oral and palatal mucosa present Eyes EOM: EOMs intact bilaterally Neck Neck: Yes supple Resp Auscultation: clear to auscultation bilaterally Cardio Jugular venous distension: no JVD Rate: regular rate GI Palpation (GI): Soft to palpation Auscultation: normal bowel sounds General: Yes no CVA tenderness Back/Spine/Pelvis Back: no CVA tenderness Skin General skin exam: no rashes or lesions noted Neuro General: patient oriented x3 and moves all extremities Extrem General: Yes no pedal edema Results Reviewed Nephrology Results: Hgb 16.1 g/dl (14.0-18.0) 05/04/24 WBC 6.6 X10*3/uL (4.8-10.8) 05/04/24 Plt Count 196 X10*3/uL (160-400) 05/04/24 Sodium 141 mmol/L (135-145) 05/04/24 Potassium 3.6 mmol/L (3.3-5.1) 05/04/24 Chloride 105 mmol/L (96-108) 05/04/24 Carbon Dioxide 29 mmol/L (22-29) 05/04/24 BUN 15 mg/dL (9-16) 05/04/24 Creatinine 1.56 mg/dL (0.5-1.4) H 05/04/24 Calcium 10.3 mg/dL (8.4-10.2) H 05/04/24 Phosphorus 2.8 mg/dL (2.7-4.5) 04/11/24 Urine Creatinine 72.00 mg/dL 01/30/24 Protein/Creatinin Ratio 0.29 (<0.2) H 01/30/24 Assessment & Plan Assessment & Plan (1) History of kidney transplant: Code(s): Z94.0 - Kidney transplant status Category: Surgical (2) Hypertension: Code(s): I10 - Essential (primary) hypertension Category: Medical Qualifiers: Hypertension type: primary hypertension Qualified Code(s): I10 - Essential (primary) hypertension Plan 1. Allograft function: excellent function; serum creatinine stable 2. Immunosuppression: tolerating; monitoring levels; adjust accordingly; Prophylaxis Therapy included (Drug/Discontinuation Date) bactrim d/c ed 03/21/24, mycelex d/c ed 12/22/23 & valcyte d/c ed 03/16/24. 3. BP and volume status: Vol status optimal. BP at goal 4. Metabolic parameters: stable; follow up labs 5. Hematologic parameters: counts excellent 6. Prophylaxis/infection: reviewed; tolerating; no changes 7. Urologic: no issues 8. Other: needs to increase activity; weight loss emphasized Orders: Orders Tacrolimus Prograf Today I10 - Essential (primary) hypertension, Z94.0 - Kidney transplant status Creatinine Today I10 - Essential (primary) hypertension, Z94.0 - Kidney transplant status Electrolytes Today I10 - Essential (primary) hypertension, Z94.0 - Kidney transplant status Calcium Today I10 - Essential (primary) hypertension, Z94.0 - Kidney transplant status Complete Blood Count Auto Diff Today I10 - Essential (primary) hypertension, Z94.0 - Kidney transplant status Hemoglobin A1c Today I10 - Essential (primary) hypertension, Z94.0 - Kidney t ransplant status Blood Urea Nitrogen Today I10 - Essential (primary) hypertension, Z94.0 - Kidney transplant status Phosphorus Today I10 - Essential (primary) hypertension, Z94.0 - Kidney transplant status Magnesium Today I10 - Essential (primary) hypertension, Z94.0 - Kidney transplant status Protein Creatinine Ratio, Ur Today I10 - Essential (primary) hypertension, Z94.0 - Kidney transplant status Medications: Discontinued valganciclovir Discontinued Reason: Doctor's Order 450 mg PO DAILY 30 tabs 4RF omeprazole Discontinued Reason: Doctor's Order 20 mg PO DAILY 30 caps 11RF potassium chloride ER Discontinued Reason: Doctor's Order 10 mEq PO DAILY 10 tabs 0RF Coding Level of Care Code Est Pt Level 4 (78407) Diagnoses History of kidney transplant Z94.0 Primary hypertension I10 Hypertension type: primary hypertension
== END 2024-05-09 15:50 | disposition home or self-care (01) ==
PROVIDERS: PCP Physician Assistant; Visit Provider Internal Medicine Nephrology
DX: Z94.0 Kidney transplant status (principal); I10 Essential (primary) hypertension
CPT/HCPCS: 99214

== ENCOUNTER → 2024-05-09 15:14 | Outpatient (BNVA) | payer BC, MEDICARE, SELFPAY | PROVIDERS: PCP Physician Assistant; Visit Provider Internal Medicine Nephrology ==

== ENCOUNTER 2024-07-03 08:31 | Outpatient (REF) | payer BC, MEDICARE, SELFPAY ==
[2024-07-03 17:48] LABS: MANUAL DIFF FLAG NO
[2024-07-03 18:03] LABS: Basophils Percent Auto 0.6 % (0-2); Eosinophils Absolute Auto 0.2 X10*3/uL (0.0-0.4); Eosinophils Percent Auto 2.9 % (0-4); Hematocrit 50.9 % (42.0-52.0); Hemoglobin 15.9 g/dl (14.0-18.0); Imm Gran Abs Auto 0.03 X10*3/uL (0.00-0.03); Imm Gran Pct Auto 0.6 % (0.0-0.4); Lymphocytes Absolute Auto 1.4 X10*3/uL (1.2-4.9); Lymphocytes Percent Auto 26.4 % (20-40); Mean Corpuscular HGB Conc 31.2 g/dl (31.0-36.0); Mean Corpuscular Hemoglobin 26.5 pg (27.0-33.0); Mean Corpuscular Volume 84.7 fL (80.0-98.0); Mean Platelet Volume 10.2 fL (9.4-12.4); Monocytes Absolute Auto 0.3 X10*3/uL (0.1-1.2); Neutrophils Absolute Auto 3.3 x10*3/uL (2.0-8.3); Neutrophils Percent Auto 63.5 % (45-73); Platelet Count 177 X10*3/uL (160-400); Red Blood Count 6.01 X10*6/uL (4.60-5.80); Red Cell Distribution Width 14.8 % (11.0-16.0); White Blood Count 5.2 X10*3/uL (4.8-10.8)
[2024-07-03 18:35] LABS: Anion Gap 9 (12-20); Blood Urea Nitrogen 21 mg/dL (9-16); Calcium 9.6 mg/dL (8.4-10.2); Carbon Dioxide 27 mmol/L (22-29); Chloride 107 mmol/L (96-108); Estimated Glomerular Filt Rate 51; Magnesium 1.7 mg/dL (1.6-2.6); Phosphorus 2.2 mg/dL (2.7-4.5); Potassium 3.2 mmol/L (3.3-5.1); Sodium 140 mmol/L (135-145)
[2024-07-03 18:50] LABS: Protein/Creatinine Ratio, Ur 0.28 (<0.2); Total Protein Urine Random 25 mg/dL (<12)
[2024-07-04 05:19] LABS: Estimated Average Glucose 111 mg/dL; Hemoglobin A1c % 5.5 % (<6.0)
[2024-07-04 18:44] LABS: Tacrolimus Prograf 8.1 mcg/L
== END 2024-07-03 08:32 | disposition home or self-care (01) ==
LOC: HO.HKASLDS 08:31
PROVIDERS: Visit Provider Internal Medicine Nephrology
DX: I10 Essential (primary) hypertension (principal); Z94.0 Kidney transplant status; Z13.1 Encounter for screening for diabetes mellitus
CPT/HCPCS: 36415; 80051; 80197; 82310; 82565; 82570; 83036; 83735; 84100; 84156; 84520; 85025

== ENCOUNTER 2024-07-04 15:29 | Outpatient (AMB) | payer BC, MEDICARE, SELFPAY ==
[2024-07-04 15:42] VITALS: BP 112/64; PULSE 73; O2SAT 96; BMI 33.9
--- NOTE | 2024-07-04 15:42 | HO.NEPHOV ---
Vital Signs 07/04/24 15:42 Height 5 ft 5 in Weight 204 lb BMI 33.9 BP 112/64 Blood Pressure Location Rt brachial Position Sitting Pulse 73 Pulse Source Pulse Oximeter Pulse Oximetry (%) 96 Oxygen Delivery Method Room Air Intake Visit Reasons: Transplant/ Needs late appt- Conf Allergies Penicillins Allergy (Mild, Verified 05/09/24 15:30) Unknown HPI Comments Details: I had the delight of seeing Pablo in follow-up of his renal transplant. 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 He underwent living unrelated renal transplant on 09/20/2023. He had stent removed on 10/10/2023. He had a panel reactive antibody of 25. Induction was done with Campath. He had no delayed graft function. He required no dialysis treatment post transplant. CMV status of the donor was positive and recipient was positive as well. EBV status of the donor was negative and recipient was positive. Hepatitis-B core antibody for donor and recipient was negative. Hepatitis C virus antibody was negative for donor and recipient. Bk virus PCR was negative as of 12/21/2023. His immunosuppression included Envarsus and Mycophenolate. He did not have any rejection episodes post transplant. He had some fluctuant blood pressure in the last few months which has been better. He had transaminitis which is resolved. His donor specific antibodies were negative as of 12/13/2023. His immunosuppression included Envarsus 2.5 mg daily and mycophenolate 540 mg twice daily. His Prophylaxis Therapy included (Drug/Discontinuation Date) bactrim d/c ed 03/21/24, mycelex d/c ed 12/22/23 & valcyte d/c ed 03/16/24. He had no readmissions the 1st 3 months. Currently he feels well. [facility] Medical History (Updated 01/26/24 @ 06:45 by Harish Lentz MD) History of hepatitis C History of end stage renal disease Surgical History History of kidney transplant Review of Systems Const All systems reviewed & are unremarkable except as noted in HPI and below Physical Exam Vital Signs: Last Vital Signs Pulse 73 07/04/24 15:42 BP 112/64 07/04/24 15:42 Pulse Ox 96 07/04/24 15:42 Oxygen Delivery Method Room Air 07/04/24 15:42 BMI result Body Mass Index 33.9 Const General: comfortable and no acute distress Orientation/consciousness: patient oriented x3 HEENT Head: Yes normocephalic Mouth: Normal oral and palatal mucosa present Eyes EOM: EOMs intact bilaterally Neck Neck: Yes supple Resp Auscultation: clear to auscultation bilaterally Cardio Jugular venous distension: no JVD Rate: regular rate GI Palpation (GI): Soft to palpation Auscultation: normal bowel sounds General: Yes no CVA tenderness Back/Spine/Pelvis Back: no CVA tenderness Skin General skin exam: no rashes or lesions noted Neuro General: patient oriented x3 and moves all extremities Extrem General: Yes no pedal edema Results Reviewed Nephrology Results: Hgb 15.9 g/dl (14.0-18.0) 07/03/24 WBC 5.2 X10*3/uL (4.8-10.8) 07/03/24 Plt Count 177 X10*3/uL (160-400) 07/03/24 Sodium 140 mmol/L (135-145) 07/03/24 Potassium 3.2 mmol/L (3.3-5.1) L 07/03/24 Chloride 107 mmol/L (96-108) 07/03/24 Carbon Dioxide 27 mmol/L (22-29) 07/03/24 BUN 21 mg/dL (9-16) H 07/03/24 Creatinine 1.44 mg/dL (0.5-1.4) H 07/03/24 Calcium 9.6 mg/dL (8.4-10.2) 07/03/24 Phosphorus 2.2 mg/dL (2.7-4.5) L 07/03/24 Urine Creatinine 89.50 mg/dL 07/03/24 Protein/Creatinin Ratio 0.28 (<0.2) H 07/03/24 Assessment & Plan Assessment & Plan (1) History of kidney transplant: Code(s): Z94.0 - Kidney transplant status Category: Surgical Plan 1. Allograft function: excellent function; serum creatinine stable 2. Immunosuppression: tolerating; monitoring levels; adjust accordingly; Prophylaxis Therapy included (Drug/Discontinuation Date) bactrim d/c ed 03/21/24, mycelex d/c ed 12/22/23 & valcyte d/c ed 03/16/24. 3. BP and volume status: Vol status optimal. BP at goal 4. Metabolic parameters: stable; follow up labs 5. Hematologic parameters: counts excellent 6. Prophylaxis/infection: reviewed; tolerating; no changes 7. Urologic: no issues 8. Other: needs to increase activity; weight loss emphasized Orders: Orders Creatinine 6 Weeks Z94.0 - Kidney transplant status Blood Urea Nitrogen 6 Weeks Z94.0 - Kidney transplant status Electrolytes 6 Weeks Z94.0 - Kidney transplant status Calcium 6 Weeks Z94.0 - Kidney transplant status Phosphorus 6 Weeks Z94.0 - Kidney transplant status Parathyroid Hormone Intact 6 Weeks Z94.0 - Kidney transplant status Aspartate Amino Transferase 6 Weeks Z94.0 - Kidney transplant status Tacrolimus Prograf 6 Weeks Z94.0 - Kidney transplant status Magnesium 6 Weeks Z94.0 - Kidney transplant status Vitamin D 25-OH Total 6 Weeks Z94.0 - Kidney transplant status Complete Blood Count Auto Diff 6 Weeks Z94.0 - Kidney transplant status Alanine Aminotransferase 6 Weeks Z94.0 - Kidney transplant status Medications: New potassium chloride ER 20 mEq PO DAILY 5 tabs 0RF Coding Level of Care Code Est Pt Level 4 (58179) Diagnoses History of kidney transplant Z94.0
== END 2024-07-04 16:06 | disposition home or self-care (01) ==
PROVIDERS: PCP Physician Assistant; Visit Provider Internal Medicine Nephrology
DX: Z94.0 Kidney transplant status (principal)
CPT/HCPCS: 99214

== ENCOUNTER → 2024-07-04 15:29 | Outpatient (BNVA) | payer BC, MEDICARE, SELFPAY | PROVIDERS: PCP Physician Assistant; Visit Provider Internal Medicine Nephrology ==

== ENCOUNTER 2024-08-15 08:18 | Outpatient (REF) | payer BC, MEDICARE, SELFPAY ==
[2024-08-15 08:46] LABS: MANUAL DIFF FLAG NO
[2024-08-15 09:06] LABS: Basophils Percent Auto 0.3 % (0-2); Eosinophils Absolute Auto 0.2 X10*3/uL (0.0-0.4); Eosinophils Percent Auto 2.9 % (0-4); Hematocrit 51.4 % (42.0-52.0); Hemoglobin 16.2 g/dl (14.0-18.0); Imm Gran Abs Auto 0.07 X10*3/uL (0.00-0.03); Lymphocytes Absolute Auto 1.8 X10*3/uL (1.2-4.9); Lymphocytes Percent Auto 25.9 % (20-40); Mean Corpuscular HGB Conc 31.5 g/dl (31.0-36.0); Mean Corpuscular Hemoglobin 26.8 pg (27.0-33.0); Monocytes Absolute Auto 0.6 X10*3/uL (0.1-1.2); Monocytes Percent Auto 8.5 % (2-11); Neutrophils Absolute Auto 4.3 x10*3/uL (2.0-8.3); Neutrophils Percent Auto 61.4 % (45-73); Platelet Count 170 X10*3/uL (160-400); Red Blood Count 6.05 X10*6/uL (4.60-5.80); Red Cell Distribution Width 14.3 % (11.0-16.0); White Blood Count 6.9 X10*3/uL (4.8-10.8)
[2024-08-15 10:09] LABS: Alanine Aminotransferase 38 U/L (0-40); Anion Gap 11 (12-20); Aspartate Amino Transferase 27 U/L (5-37); Blood Urea Nitrogen 23 mg/dL (9-16); Calcium 9.7 mg/dL (8.4-10.2); Carbon Dioxide 29 mmol/L (22-29); Chloride 104 mmol/L (96-108); Estimated Glomerular Filt Rate 49; Magnesium 1.6 mg/dL (1.6-2.6); Phosphorus 2.4 mg/dL (2.7-4.5); Potassium 3.4 mmol/L (3.3-5.1); Sodium 141 mmol/L (135-145)
[2024-08-15 10:31] LABS: Parathyroid Hormone Intact 120.6 pg/mL (8.7-77.1)
[2024-08-15 10:48] LABS: Vitamin D 25-OH Total 31.9 ng/mL (>30)
[2024-08-16 11:47] LABS: Tacrolimus Prograf 12.7 mcg/L
== END 2024-08-15 08:19 | disposition home or self-care (01) ==
LOC: HO.LAB 08:18
PROVIDERS: PCP Physician Assistant; Visit Provider Internal Medicine Nephrology
DX: I10 Essential (primary) hypertension (principal); Z94.0 Kidney transplant status
CPT/HCPCS: 36415; 80051; 80197; 82306; 82310; 82565; 83735; 83970; 84100; 84450; 84460; 84520; 85025

== ENCOUNTER 2024-09-12 15:55 | Outpatient (AMB) | payer BC, MEDICARE, SELFPAY ==
--- NOTE | 2024-09-12 15:59 | HO.NEPHOV ---
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 He was in [facility] recently for a few weeks. 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 He underwent living unrelated renal transplant on 09/20/2023. He had stent removed on 10/10/2023. He had a panel reactive antibody of 25. Induction was done with Campath. He had no delayed graft function. He required no dialysis treatment post transplant. CMV status of the donor was positive and recipient was positive as well. EBV status of the donor was negative and recipient was positive. Hepatitis-B core antibody for donor and recipient was negative. Hepatitis C virus antibody was negative for donor and recipient. Bk virus PCR was negative as of 12/21/2023. His immunosuppression included Envarsus and Mycophenolate. He did not have any rejection episodes post transplant. He had some fluctuant blood pressure in the last few months which has been better. He had transaminitis which is resolved. His donor specific antibodies were negative as of 12/13/2023. His immunosuppression included Envarsus 2.5 mg daily and mycophenolate 540 mg twice daily. His Prophylaxis Therapy included (Drug/Discontinuation Date) bactrim d/c ed 03/21/24, mycelex d/c ed 12/22/23 & valcyte d/c ed 03/16/24. He had no readmissions the 1st 3 months. Currently he feels well. He is compliant with medications [facility] Medical History (Updated 01/26/24 @ 06:45 by Harish Lentz MD) History of hepatitis C History of end stage renal disease Surgical History History of kidney transplant Review of Systems Const All systems reviewed & are unremarkable except as noted in HPI and below Physical Exam Vital Signs: Last Vital Signs Pulse 81 09/12/24 16:00 BP 120/64 09/12/24 16:00 Pulse Ox 94 09/12/24 16:00 Oxygen Delivery Method Room Air 09/12/24 16:00 BMI result Body Mass Index 35.8 Const General: comfortable and no acute distress Orientation/consciousness: patient oriented x3 HEENT Head: Yes normocephalic Mouth: Normal oral and palatal mucosa present Eyes EOM: EOMs intact bilaterally Neck Neck: Yes supple Resp Auscultation: clear to auscultation bilaterally Cardio Jugular venous distension: no JVD Rate: regular rate GI Palpation (GI): Soft to palpation Auscultation: normal bowel sounds General: Yes no CVA tenderness Back/Spine/Pelvis Back: no CVA tenderness Skin General skin exam: no rashes or lesions noted Neuro General: patient oriented x3 and moves all extremities Extrem General: Yes no pedal edema Results Reviewed Nephrology Results: Hgb 16.2 g/dl (14.0-18.0) 08/15/24 WBC 6.9 X10*3/uL (4.8-10.8) 08/15/24 Plt Count 170 X10*3/uL (160-400) 08/15/24 Sodium 141 mmol/L (135-145) 08/15/24 Potassium 3.4 mmol/L (3.3-5.1) 08/15/24 Chloride 104 mmol/L (96-108) 08/15/24 Carbon Dioxide 29 mmol/L (22-29) 08/15/24 BUN 23 mg/dL (9-16) H 08/15/24 Creatinine 1.50 mg/dL (0.5-1.4) H 08/15/24 Calcium 9.7 mg/dL (8.4-10.2) 08/15/24 Phosphorus 2.4 mg/dL (2.7-4.5) L 08/15/24 PTH Intact 120.6 pg/mL (8.7-77.1) H 08/15/24 Urine Creatinine 89.50 mg/dL 07/03/24 Protein/Creatinin Ratio 0.28 (<0.2) H 07/03/24 Assessment & Plan Assessment & Plan (1) History of kidney transplant: Code(s): Z94.0 - Kidney transplant status Category: Surgical (2) Hypertension: Code(s): I10 - Essential (primary) hypertension Category: Medical Qualifiers: Hypertension type: primary hypertension Qualified Code(s): I10 - Essential (primary) hypertension Plan 1. Allograft function: excellent function; serum creatinine stable 2. Immunosuppression: tolerating; monitoring levels; adjust accordingly; Prophylaxis Therapy included (Drug/Discontinuation Date) bactrim d/c ed 03/21/24, mycelex d/c ed 12/22/23 & valcyte d/c ed 03/16/24. 3. BP and volume status: Vol status optimal. BP at goal 4. Metabolic parameters: stable; follow up labs 5. Hematologic parameters: counts excellent 6. Urologic: no issues 7. Other: needs to increase activity; weight loss emphasized Orders: Orders Creatinine 1 Month I10 - Essential (primary) hypertension, Z94.0 - Kidney transplant status Calcium 1 Month I10 - Essential (primary) hypertension, Z94.0 - Kidney transplant status Phosphorus 1 Month I10 - Essential (primary) hypertension, Z94.0 - Kidney transplant status Tacrolimus Prograf 1 Month I10 - Essential (primary) hypertension, Z94.0 - Kidney transplant status Complete Blood Count Auto Diff 1 Month I10 - Essential (primary) hypertension, Z94.0 - Kidney transplant status Blood Urea Nitrogen 1 Month I10 - Essential (primary) hypertension, Z94.0 - Kidney transplant status Electrolytes 1 Month I10 - Essential (primary) hypertension, Z94.0 - Kidney transplant status Magnesium 1 Month I10 - Essential (primary) hypertension, Z94.0 - Kidney transplant status Other Ref Test - Misc 1 Month I10 - Essential (primary) hypertension, Z94.0 - Kidney transplant status Coding Level of Care Code Est Pt Level 4 (43598) Diagnoses History of kidney transplant Z94.0 Primary hypertension I10 Hypertension type: primary hypertension
[2024-09-12 16:00] VITALS: BP 120/64; PULSE 81; O2SAT 94; BMI 35.8
== END 2024-09-12 16:33 | disposition home or self-care (01) ==
PROVIDERS: PCP Physician Assistant; Visit Provider Internal Medicine Nephrology
DX: I10 Essential (primary) hypertension (principal); Z94.0 Kidney transplant status
CPT/HCPCS: 99214

== ENCOUNTER 2024-10-10 09:05 | Outpatient (REF) | payer BC, MEDICARE, SELFPAY ==
[2024-10-10 10:37] LABS: MANUAL DIFF FLAG NO
[2024-10-10 10:42] LABS: Basophils Percent Auto 0.4 % (0-2); Eosinophils Absolute Auto 0.2 X10*3/uL (0.0-0.4); Eosinophils Percent Auto 2.1 % (0-4); Hematocrit 48.3 % (42.0-52.0); Hemoglobin 15.1 g/dl (14.0-18.0); Imm Gran Abs Auto 0.02 X10*3/uL (0.00-0.03); Imm Gran Pct Auto 0.3 % (0.0-0.4); Lymphocytes Absolute Auto 1.9 X10*3/uL (1.2-4.9); Lymphocytes Percent Auto 25.9 % (20-40); Mean Corpuscular HGB Conc 31.3 g/dl (31.0-36.0); Mean Corpuscular Hemoglobin 26.4 pg (27.0-33.0); Mean Corpuscular Volume 84.4 fL (80.0-98.0); Mean Platelet Volume 9.6 fL (9.4-12.4); Monocytes Absolute Auto 0.6 X10*3/uL (0.1-1.2); Monocytes Percent Auto 8.3 % (2-11); Neutrophils Absolute Auto 4.7 x10*3/uL (2.0-8.3); Platelet Count 175 X10*3/uL (160-400); Red Blood Count 5.72 X10*6/uL (4.60-5.80); Red Cell Distribution Width 14.3 % (11.0-16.0); White Blood Count 7.5 X10*3/uL (4.8-10.8)
[2024-10-10 10:55] LABS: Anion Gap 9 (12-20); Blood Urea Nitrogen 22 mg/dL (9-16); Calcium 9.3 mg/dL (8.4-10.2); Carbon Dioxide 29 mmol/L (22-29); Chloride 105 mmol/L (96-108); Estimated Glomerular Filt Rate 55; Magnesium 1.6 mg/dL (1.6-2.6); Phosphorus 2.1 mg/dL (2.7-4.5); Potassium 3.1 mmol/L (3.3-5.1); Sodium 140 mmol/L (135-145)
[2024-10-16 12:08] LABS: BK Virus DNA QL Urine Not Detected (Not Detected)
== END 2024-10-10 09:06 | disposition home or self-care (01) ==
LOC: HO.10HDL 09:05
PROVIDERS: Visit Provider Internal Medicine Nephrology
DX: I10 Essential (primary) hypertension (principal); Z94.0 Kidney transplant status
CPT/HCPCS: 36415; 80051; 80197; 82310; 82565; 83735; 84100; 84520; 85025; 87798

== ENCOUNTER 2024-10-29 15:41 | Outpatient (AMB) | payer OTHER, SELFPAY ==
--- NOTE | 2024-10-29 15:46 | HO.NEPHOV ---
Vital Signs 10/29/24 15:47 Height 5 ft 5 in Weight 205 lb BMI 34.1 BP 110/70 Blood Pressure Location Rt brachial Position Sitting Pulse 76 Pulse Source Pulse Oximeter Pulse Oximetry (%) 95 Oxygen Delivery Method Room Air Intake Visit Reasons: Transplant/ Conf Senior Receptionist Required: No Accompanied by: Self / Same As Patient Allergies Penicillins Allergy (Mild, Verified 10/29/24 15:47) Unknown HPI Comments Details: Pablo was in follow-up of his renal transplant. He was in [facility] recently for a few weeks. 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 He underwent living unrelated renal transplant on 09/20/2023. He had stent removed on 10/10/2023. He had a panel reactive antibody of 25. Induction was done with Campath. He had no delayed graft function. He required no dialysis treatment post transplant. CMV status of the donor was positive and recipient was positive as well. EBV status of the donor was negative and recipient was positive. Hepatitis-B core antibody for donor and recipient was negative. Hepatitis C virus antibody was negative for donor and recipient. Bk virus PCR was negative as of 12/21/2023. His immunosuppression included Envarsus and Mycophenolate. He did not have any rejection episodes post transplant. He had some fluctuant blood pressure in the last few months which has been better. He had transaminitis which is resolved. His donor specific antibodies were negative as of 12/13/2023. His immunosuppression included Envarsus 2.5 mg daily and mycophenolate 540 mg twice daily. His Prophylaxis Therapy included (Drug/Discontinuation Date) bactrim d/c ed 03/21/24, mycelex d/c ed 12/22/23 & valcyte d/c ed 03/16/24. He had no readmissions the 1st 3 months. Currently he feels well. He is compliant with medications. He has been having ED and wants to see a Urologist [facility] Medical History (Updated 10/29/24 @ 16:18 by Harish Lentz MD) History of hepatitis C History of end stage renal disease Surgical History History of kidney transplant Review of Systems Const All systems reviewed & are unremarkable except as noted in HPI and below Physical Exam Vital Signs: Last Vital Signs Pulse 76 10/29/24 15:47 BP 110/70 10/29/24 15:47 Pulse Ox 95 10/29/24 15:47 Oxygen Delivery Method Room Air 10/29/24 15:47 BMI result Body Mass Index 34.1 Const General: comfortable and no acute distress Orientation/consciousness: patient oriented x3 HEENT Head: Yes normocephalic Mouth: Normal oral and palatal mucosa present Eyes EOM: EOMs intact bilaterally Neck Neck: Yes supple Resp Auscultation: clear to auscultation bilaterally Cardio Jugular venous distension: no JVD Rate: regular rate GI Palpation (GI): Soft to palpation Auscultation: normal bowel sounds General: Yes no CVA tenderness Back/Spine/Pelvis Back: no CVA tenderness Skin General skin exam: no rashes or lesions noted Neuro General: patient oriented x3 and moves all extremities Extrem General: Yes no pedal edema Results Reviewed Nephrology Results: Hgb 15.1 g/dl (14.0-18.0) 10/10/24 WBC 7.5 X10*3/uL (4.8-10.8) 10/10/24 Plt Count 175 X10*3/uL (160-400) 10/10/24 Sodium 140 mmol/L (135-145) 10/10/24 Potassium 3.1 mmol/L (3.3-5.1) L 10/10/24 Chloride 105 mmol/L (96-108) 10/10/24 Carbon Dioxide 29 mmol/L (22-29) 10/10/24 BUN 22 mg/dL (9-16) H 10/10/24 Creatinine 1.35 mg/dL (0.5-1.4) 10/10/24 Calcium 9.3 mg/dL (8.4-10.2) 10/10/24 Phosphorus 2.1 mg/dL (2.7-4.5) L 10/10/24 PTH Intact 120.6 pg/mL (8.7-77.1) H 08/15/24 Urine Creatinine 89.50 mg/dL 07/03/24 Protein/Creatinin Ratio 0.28 (<0.2) H 07/03/24 Assessment & Plan Assessment & Plan (1) History of kidney transplant: Code(s): Z94.0 - Kidney transplant status Category: Surgical (2) Hypertension: Code(s): I10 - Essential (primary) hypertension Category: Medical Qualifiers: Hypertension type: primary hypertension Qualified Code(s): I10 - Essential (primary) hypertension Plan 1. Allograft function: excellent function; serum creatinine stable 2. Immunosuppression: tolerating; monitoring levels; adjust accordingly; Prophylaxis Therapy included (Drug/Discontinuation Date) bactrim d/c ed 03/21/24, mycelex d/c ed 12/22/23 & valcyte d/c ed 03/16/24. 3. BP and volume status: Vol status optimal. BP at goal 4. Metabolic parameters: stable; follow up labs 5. Hematologic parameters: counts excellent 6. Urologic: no issues except for ES ( referred to Urology) 7. Other: needs to increase activity; weight loss emphasized Orders: Orders Creatinine 2 Months I10 - Essential (primary) hypertension, Z94.0 - Kidney transplant status Tacrolimus Prograf 2 Months I10 - Essential (primary) hypertension, Z94.0 - Kidney transplant status Calcium 2 Months I10 - Essential (primary) hypertension, Z94.0 - Kidney transplant status Phosphorus 2 Months I10 - Essential (primary) hypertension, Z94.0 - Kidney transplant status Complete Blood Count Auto Diff 2 Months I10 - Essential (primary) hypertension, Z94.0 - Kidney transplant status Blood Urea Nitrogen 2 Months I10 - Essential (primary) hypertension, Z94.0 - Kidney transplant status Electrolytes 2 Months I10 - Essential (primary) hypertension, Z94.0 - Kidney transplant status Magnesium 2 Months I10 - Essential (primary) hypertension, Z94.0 - Kidney transplant status Referrals Urology Referral N52.9 - Male erectile dysfunction, unspecified Coding Level of Care Code Est Pt Level 4 (41992) Diagnoses History of kidney transplant Z94.0 Primary hypertension I10 Hypertension type: primary hypertension
[2024-10-29 15:47] VITALS: BP 110/70; PULSE 76; O2SAT 95; BMI 34.1
== END 2024-10-29 16:21 | disposition home or self-care (01) ==
PROVIDERS: PCP Physician Assistant; Visit Provider Internal Medicine Nephrology
DX: Z94.0 Kidney transplant status (principal); I10 Essential (primary) hypertension
CPT/HCPCS: 99214

== ENCOUNTER → 2024-10-29 15:41 | Outpatient (BNVA) | payer OTHER, SELFPAY | PROVIDERS: PCP Physician Assistant; Visit Provider Internal Medicine Nephrology ==

== ENCOUNTER 2024-12-25 09:35 | Outpatient (REF) | payer OTHER, SELFPAY ==
--- OUTSIDE RECORDS SUMMARY | 2024-12-25 10:47 | XMS_ITS | Encounter Summary ---
Author Organization [facility] Address [address] [facility] [address] [place] [address] Phone Care Team Providers Care Manager Global Communications Name Role Phone Tri Perez PA-C Primary Care Provider +1- [phone] Reason for Visit * Reason Comments Med Refill Encounter Details Date Type Department Care Team ([facility] st Contact Info) Description 08/28/2022 Refill [facility] [address] [facility] [address] [place] [phone] Sudheer Hartman MD [address] [facility] [address] [place] [phone] Social History Tobacco Use Types Packs/Day Years Used Date Smoking Tobacco: Former Cigarettes Q uit: 10/24/2011 Smokeless Tobacco: Never Alcohol Use Standard Drinks/Week Comments Yes 0 (1 standard drink = 0.6 oz pure alcohol) Alcoholic Drinks/day: Occasional social drink Sex and Gender Information Value Date Recorded Sex Assigned at Not on file Legal Sex Male 5:06 PM EST Gender Identity Not on file Sexual Orientation Not on file documented as of this encounter Plan of Treatment Not on file documented as of this encounter Visit Diagnoses Not on filedocumented in this encounter Care Teams Manager Global Communications Relationship Specialty Start Date End Date Tri Perez PA-C [address] [place] [address] PCP - General Physician Manager Flight Operations 09/19/23 documented as of this encounter
--- OUTSIDE RECORDS SUMMARY | 2024-12-25 10:47 | XMS_ITS | Encounter Summary ---
Author Organization [facility], Address [address] [place] [address] Phone Care Team Providers Care Ict Help Desk Officer Name Role Phone Tri Perez PA-C Primary Care Provider +1- [phone] Encounter Details Date Type Department Care Team (Late st Contact Info) Description 11/25/2023 Documentation Only [facility], [address] [place] [address] Tor Alfred, DO [address] [place] [address] Social History Tobacco Use Types Packs/Day Years [...] on filedocumented in this encounter Care Teams Ict Help Desk Officer Relationship Specialty Start Date End Date Tri Perez PA-C [address] [place] [address] PCP - General Physician Manufacturing Engineer Paint 09/19/23 documented as of this encounter
--- OUTSIDE RECORDS SUMMARY | 2024-12-25 10:47 | XMS_ITS | Encounter Summary ---
Author Organization [facility], Address [address] [address] Phone Care Team Providers Care Marine Pilot Name Role Phone Tri Perez PA-C Primary Care Provider +1- [phone] Encounter Details Date Type Department Care Team (Late st Contact Info) Description 10/18/2023 Documentation Only [facility], [address] [place] [address] Bi Alfonso MD [address] [place] [phone] Social History Tobacco Use Types Packs/Day Years [...] on filedocumented in this encounter Care Teams Marine Pilot Relationship Specialty Start Date End Date Tri Perez PA-C [address] [place] [address] PCP - General Physician Planning Rn 09/19/23 documented as of this encounter
--- OUTSIDE RECORDS SUMMARY | 2024-12-25 10:48 | XMS_ITS | Clinical Summary ---
Author Organization [facility] Address [address] [facility] [address] [place] [address] Phone Care Team Providers Care Devulcanizer Loader Name Role Phone Tri Perez PA-C Primary Care Provider +1- [phone] Allergies Active Allergy Reactions Criticality Noted Date Comments Lisinopril Medium 06/07/2018 Muscle cramping Penicillins Other (see comments) 02/02/2021 Medications Acetaminophen (Tylenol) 325 MG capsule Take 2 capsules by mouth if needed Active albuterol HFA (PROVENTIL HFA;VENTOLIN HFA) 108 (90 Base) MCG/ACT inhaler Inhale 2 puffs 1 Active Clobetasol Propionate 0.05 % shampoo Apply topically 1 Active calcitriol (Rocaltrol) 0.25 MCG capsule Take 1 capsule (0.25 mcg total) by mouth 1 (one) time each day 90 capsule 3 2 Active Additional Information Patient not taking.Reported on 05/06/2022 hydrALAZINE 25 MG tablet Take 1 tablet (25 mg total) by mouth in the morning and 1 tablet (25 mg total) in the evening and 1 tablet (25 mg total) before bedtime. 270 tablet 3 2 Active Additional Information Patient not taking.Reported on 05/06/2022 amLODIPine (NORVASC) 10 MG tablet TAKE 1 TABLET BY MOUTH 1 TIME EACH DAY. 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 11/16/2021 Stage 5 chronic kidney disease 02/03/2021 Glomerulonephritis 02/03/2021 Anemia in chronic kidney disease 02/03/2021 Localized edema 02/03/2021 Vitamin D deficiency, not otherwise specified Secondary hyperparathyroidism 02/03/2021 Overweight 02/03/2021 Patient's noncompliance with other medical treatment and regimen due to unspecified reason 02/03/2021 Cyst of kidney 02/02/2021 Hypertension 02/02/2021 Proteinuria 02/02/2021 Viral hepatitis C 02/02/2021 History of cholecystectomy 09/03/2019 Resolved Problems Problem Noted Date Diagnosed Date Resolved Date Acquired renal cystic disease 02/02/2021 02/03/2021 Blood chemistry outside reference range 02/02/2021 02/03/2021 Blood in urine 02/02/2021 02/03/2021 Diabetes mellitus without me ntion of complication, type II or unspecified type, not stated as uncontrolled 02/02/2021 02/03/2021 Chronic kidney disease stage 3 02/02/2021 02/03/2021 Immunizations Name Administration Dates Next Due Moderna SARS-COV-2 01/24/2021,12/27/2020 Tdap 11/28/2018 Family History Medical History Relation Comments Diabetes Mother Heart disease Mother CABG Relation Status Comments Father Alive Mother Alive Social History Tobacco Use Types Packs/Day Years Used Date Smoking Tobacco: Former Cigarettes Q uit: 10/24/2011 Smokeless Tobacco: Never Tobacco Cessation:Counseling Given: No Alcohol Use Standard Drinks/Week Comments Yes 0 (1 standard drink = 0.6 oz pure alcohol) Alcoholic Drinks/day: Occasional social drink Sex and Gender Information Value Date Recorded Sex Assigned at Not on file Legal Sex Male 5:06 PM EST Gender Identity Not on file Sexual Orientation Not on file Last Filed Vital Signs Vital Sign Reading Time Taken Comments Blood Pressure 128/80 07/20/2022 10:19 AM EDT Pulse 82 07/20/2022 10:19 AM EDT Temperature - - Respiratory Rate - - Oxygen Saturation 98% 07/20/2022 10:19 AM EDT Inhaled Oxygen Concentration - - Weight 90.7 kg (200 lb) 07/20/2022 10:19 AM EDT Height 165.1 cm (5' 5 ) 01/19/2022 8:38 AM EDT Body Mass Index 33.28 01/19/2022 8:38 AM EDT Plan of Treatment Health Maintenance Due Date Last Done Comments Pneumococcal Vaccine: Pediat rics (0 to 5 Years) and At-Risk Patients (6 to 64 Years) (1 of 2 - PCV) 1977 Hepatitis B Vaccine (1 of 3 - 19+ 3-dose series) 03/29 Colorectal Cancer Screening: Annual FOBT 2020 Colorectal Cancer Screening: Colonoscopy 2020 Colorectal Cancer Screening: Sigmoidoscopy 2020 Influenza Vaccine (#1) 2024 Insurance [place]ICARE [place]ID [place] Care Teams Devulcanizer Loader Relationship Specialty Start Date End Date Tri Perez PA-C [address] [place] [address] PCP - General Physician Shoemaking Finisher 09/19/23
--- OUTSIDE RECORDS SUMMARY | 2024-12-25 10:48 | XMS_ITS | Encounter Summary ---
Author Organization [facility] Address [address] [place] [address] Care Team Providers Care Db2 Dba Name Role Phone Tri Perez PA-C Primary Care Provider +1 [phone] Encounter Details Date Type Department Care Team (Late st Contact Info) Description 12/12/2024 Interim Notes [facility] Main [address] [place] [phone] Dorene Garcia [place] [address] [place], [place] [phone] Social History Tobacco Use Types Packs/Day Years Used Date Smoking Tobacco: Former Smokeless Tobacco: Never Comments:not smoking for 4 y ears Alcohol Use Standard Drinks/Week Comments Yes 0 (1 standard drink = 0.6 oz pur e alcohol) occ Social Connections Answer Date Recorded Connectedness 1 06/01/2024 Financial Resource Strain Answer Date R ecorded Financial Resource Strain 1 2023 Stress Answer Date Recorded Stress 1 06/01/2024 Physical Activity Answer Date Recorded Physical Activity 0 06/17/2019 Food Insecurity Answer Date Recorded Food 1 06/01/2024 Transportation Needs Answer Date Record ed Transportation 1 06/01/2024 Housing Stability Answer Date Recorded Housing 1 06/01/2024 Safety and Environment Answer Date Benjy rded Safety 0 06/17/2019 Utilities Answer Date Recorded Utilities 1 06/01/2024 Employment Answer Date Recorded Stress 0 08/17/2023 Sex and Gender Information Value Date Recorded Sex Assigned at Male 05/02/2018 6:32 AM PDT Legal Sex Male 10:49 AM PDT Gender Identity Male 05/02/2018 6:32 AM PDT Sexual Orientation Straight 02/21/2024 12 :47 PM PDT 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 Therefore, the request has been administratively denied. documented in this encounter Plan of Treatment Not on file documented as of this encounter Visit Diagnoses Not on filedocumented in this encounter Additional Health Concerns Assessment Noted Time PHQ-9 Depression Total Score: 0 05/24/20 23 2:21 PM PDT documented as of this encounter Care Teams Db2 Dba Relationship Specialty Start Date End Date Tri Perez PA-C [address] [place] [address] PCP - General Internal Medicine 12/09/20 documented as of this encounter
--- OUTSIDE RECORDS SUMMARY | 2024-12-25 10:48 | XMS_ITS | Encounter Summary ---
Author Organization [facility] Address [address] [place] [address] Care Team Providers Care Heeler Name Role Phone Tri Perez PA-C Primary Care Provider +1 [phone] Encounter Details Date Type Department Care Team (Late st Contact Info) Description 04/02/2024 Patient Outreach [address] [address] Yana Eagle, Community Health Worker [address] [place] [address] Social History Tobacco Use Types Packs/Day Years Used Date Smoking Tobacco: Former Smokeless Tobacco: Never Comments:not smoking for 4 y ears Alcohol Use Standard Drinks/Week Comments Yes 0 (1 standard drink = 0.6 oz pur e alcohol) occ Social Connections Answer Date Recorded Social Connections and Isolation 1 08/17/2023 Financial Resource Strain Answer Date R ecorded Financial Resource Strain 1 2022 Stress Answer Date Recorded Stress 1 08/17/2023 Physical Activity Answer Date Recorded Physical Activity 0 06/17/2019 Food Insecurity Answer Date Recorded Food 1 08/17/2023 Transportation Needs Answer Date Record ed Transportation 1 08/17/2023 Housing Stability Answer Date Recorded Housing 1 08/17/2023 Safety and Environment Answer Date Benjy rded Safety 0 06/17/2019 Utilities Answer Date Recorded Utilities 1 08/17/2023 Employment Answer Date Recorded Stress 0 08/17/2023 [...] documented as of this encounter Care Teams Heeler Relationship Specialty Start Date End Date Tri Perez PA-C [facility] [place] [address] PCP - General Internal Medicine 12/09/20 documented as of this encounter
--- OUTSIDE RECORDS SUMMARY | 2024-12-25 10:48 | XMS_ITS | Encounter Summary ---
Author Organization [facility] Address [address] [facility] [address] [place] [address] Phone Care Team Providers Care Etcher Electrolytic Name Role Phone Tri Perez PA-C Primary Care Provider +1- [phone] Reason for Visit * Reason Comments Med Refill Encounter Details Date Type Department Care Team ([facility] st Contact Info) Description 03/13/2022 Refill [facility] [address] [facility] [address] [place] [phone] Sudheer Hartman MD [address] [facility] [address] [place] [phone] Social History Tobacco Use Types Packs/Day Years [...] on file Sexual Orientation Not on file COVID-19 Exposure Response Date Recorded In the last month, have you been in contact with someone who was confirmed or suspected to have Coronavirus / COVID-19? No / Unsure 02/18/2022 8:08 AM EDT documented as of this encounter Plan of Treatment Not on file documented as of this encounter Visit Diagnoses Not on filedocumented in this encounter Care Teams Etcher Electrolytic Relationship Specialty Start Date End Date Tri Perez PA-C [address] [place] [address] PCP - General Physician Knitter Machine 11/27/23 documented as of this encounter
--- OUTSIDE RECORDS SUMMARY | 2024-12-25 10:48 | XMS_ITS | Encounter Summary ---
Author Organization [facility] Address [address] [place] [address] Care Team Providers Care High Speed Operator Name Role Phone Tri Perez PA-C Primary Care Provider +1 [phone] Reason for Visit * Reason Comments Hypertension Encounter Details Date Type Department Care Team (Late st Contact Info) Description 12/24/2024 4:00 PM EST Office Visit [facility] [address] [place] [phone] Nick Schilling, LeightonD [address] [place] [address] Essential hypertension (Primary Dx); Class 1 obesity due to excess calories with serious comorbidity and body mass index (BMI) of 33.0 to 33.9 in adult; Medication management Social History Tobacco Use Types Packs/Day Years Used Date Smoking Tobacco: Former Smokeless Tobacco: Never Tobacco Cessation:Counseling Given: Not Answered Comments:not smoking for 4 years Alcohol Use Standard Drinks/Week Comments Yes 0 [...] on file documented as of this encounter Last Filed Vital Signs Vital Sign Reading Time Taken Comments Blood Pressure 110/70 12/24/2024 3:51 PM EST Pulse 73 12/24/2024 3:51 PM EST Temperature - - Respiratory Rate 16 12/24/2024 3:51 PM EST Oxygen Saturation 97% 12/24/2024 3:51 PM EST Inhaled Oxygen Concentration - - Weight 91.2 kg (201 lb) 12/24/2024 3:51 PM EST Height 165.1 cm (5' 5 ) 12/24/2024 3:51 PM EST Body Mass Index 33.45 12/24/2024 3:51 PM EST documented in this encounter Miscellaneous Notes * Patient Instructions - Nick Schilling PharmD - 12/24/2024 4:07 PM EST Instrucciones: Presion arterial normal: menos de 130/80 mmHg (no debe ser menos a 100/60 mmHg) 2. Pulso normal: de 60 a 100 bpm 3. Busque atenci??n de emergencia si hoskins presi??n arterial es superior a 180/110 mmHg y tiene s??ntomas josefa dolor tor??cico, opresi??n en el pecho, mareos/aturdimiento, nubia de clifford, palpitaciones u otros s??ntomas pertinentes. Axel Schilling PharmD, [facility] Clinical Pharmacist Oprima 2 para Espanol Pone la extension [phone] If you are not able to keep your appointment please call [phone] hours before your appointment to cancel or reschedule. documented in this encounter Plan of Treatment Not on file documented as of this encounter Visit Diagnoses Diagnosis Essential hypertension- Primary Class 1 obesity due to excess calories with serious comorbidity and body mass index (BMI) of 33.0 to 33.9 in adult Medication management Encounter for long-term (current) use of other medications documented in this encounter Additional Health Concerns Assessment Noted Time PHQ-9 Depression Total Score: 0 05/24/20 23 2:21 PM PDT documented as of this encounter Care Teams High Speed Operator Relationship Specialty Start Date End Date Tri Perez PA-C [address] [place] [address] PCP - General Internal Medicine 12/09/20 documented as of this encounter
--- OUTSIDE RECORDS SUMMARY | 2024-12-25 10:48 | XMS_ITS | Clinical Summary ---
Author Organization [facility] Address [address] [place] [address] Care Team Providers Care Ball Assembler Name Role Phone Unavailable Primary Care Provider Unavailabl e Surgical History Surgery Date Site/Laterality Comments CHOLECYSTECTOMY PROCEDURE: [place] LAPAROSCOPY SURG CHOLECYSTECTOMY Medical History Medical History Date Comments Gallbladder attack DX:Gallbladde r attack Hypertension DX:Hypertension Blood in urine DX:Blood in urin e Family History Medical History Relation Name Comments Autoimmune disease Neg Hx Breast cancer Neg Hx Colon cancer Neg Hx Coronary artery disease Neg Hx Diabetes Neg Hx Heart attack Neg Hx Heart failure Neg Hx Hyperlipidemia Neg Hx Hypertension Neg Hx Mental illness Neg Hx Prostate cancer Neg Hx Sleep apnea Neg Hx Thyroid disease Neg Hx Social History Tobacco Use Types Packs/Day Years Used Date Smoking Tobacco: Never Smokeless Tobacco: Never Alcohol Use Standard Drinks/Week Comments Yes 0 (1 standard drink = 0.6 oz pur e alcohol) Sex and Gender Information Value Date Recorded Sex Assigned at Not on file Legal Sex Male 12:24 AM EST Gender Identity Not on file Sexual Orientation Not on file Obstetrics History Last Filed Vital Signs Vital Sign Reading Time Taken Comments Blood Pressure 162/93 08/23/2023 12:54 PM EDT Pulse 76 08/23/2023 12:54 PM EDT Temperature - - Respiratory Rate - - Oxygen Saturation - - Inhaled Oxygen Concentration - - Weight 97.5 kg (215 lb) 08/23/2023 12:54 PM EDT Height 165.1 cm (5' 5 ) 08/23/2023 12:54 PM EDT Body Mass Index 35.78 08/23/2023 12:54 PM EDT Plan of Treatment Health Maintenance Due Date Last Done Comments DTaP,Tdap,and Td Vaccines (1 - Tdap) 1990 Hepatitis B Vaccines (1 of 3 - 19+ 3-dose series) 1990 Pneumococcal Vaccine: 50+ Ye ars (1 of 1 - PCV) 2021 Zoster Vaccines (1 of 2) 2021 Cholesterol Screening (Lipid Panel) 09/25/2022 Colorectal Cancer Screening: Colonoscopy 09/25/2022 Depression Screening 09/25/2022 HIV Screening 09/25/2022 Hepatitis C Screening 09/25/2022 Social Influencers of Health Screening 09/25/2022 COVID-19 Vaccine (1 - 2023-2 5 season) 2024 Influenza Vaccine (#1) 2024 HIB Vaccines Aged Out No longer eligi ble based on patient's age to complete this topic HPV Vaccines Aged Out No longer eligi ble based on patient's age to complete this topic Hepatitis A Vaccines Aged Out No long er eligible based on patient's age to complete this topic IPV Vaccines Aged Out No longer eligi ble based on patient's age to complete this topic MMR Vaccines Aged Out No longer eligi ble based on patient's age to complete this topic Meningococcal ACWY Vaccine Aged Out N o longer eligible based on patient's age to complete this topic Meningococcal B Vacine Aged Out No lo nger eligible based on patient's age to complete this topic Pneumococcal Vaccine: Pediat rics (0 to 5 Years) and At-Risk Patients (6 to 64 Years) Aged Out No longer eligible b ased on patient's age to complete this topic RSV Immunization Patients Un augustine 20 months Aged Out No longer eligible b ased on patient's age to complete this topic Varicella Vaccines Aged Out No longer eligible based on patient's age to complete this topic Advance Directives Documents on File Type Date Recorded Patient Escort Blind Expl anation Health Care Decision (hx) 06/11/2020 AD CHANDRA DIRECTIVE Health Care Decision (hx) 06/11/2020 AD CHANDRA DIRECTIVE
--- OUTSIDE RECORDS SUMMARY | 2024-12-25 10:48 | XMS_ITS | Encounter Summary ---
Author Organization [facility], Address [address] [address] Phone Care Team Providers Care Pencil Sorter Name Role Phone Tri Perez PA-C Primary Care Provider +1- [phone] Reason for Visit * Reason Comments Med Refill Encounter Details Date Type Department Care Team (Late st Contact Info) Description 08/08/2024 Refill [facility], [address] [place] [address] Bi Alfonso MD [address] [place] [id number] Social History Tobacco Use Types Packs/Day Years [...] on filedocumented in this encounter Care Teams Pencil Sorter Relationship Specialty Start Date End Date Tri Perez PA-C [address] [place] [address] PCP - General Physician Supply And Distribution Manager 09/19/23 documented as of this encounter
--- OUTSIDE RECORDS SUMMARY | 2024-12-25 10:48 | XMS_ITS | Clinical Summary ---
Author Organization [facility] Address [address] [place] [address] Care Team Providers Care Business Reporter Name Role Phone Tri Perez PA-C Primary Care Provider +1 [phone] Source Comments PLEASE NOTE, if this patient is a minor, it may be UNLAWFUL to discuss sensitive information that is contained in these records (such as FAMILY PLANNING, MENTAL HEALTH or SUBSTANCE ABUSE) with the minor patient's parent or other person without the patient's specific authorization.[facility] Allergies Active Allergy Reactions Criticality Noted Date Comments Lisinopril Medium 06/07/2018 Muscle cramping Penicillin Rash Low 06/15/2016 Medications miscellaneous medical supply miscIndications :Essential hypertension by miscellaneous route as needed (WHEN OUT OF BED) Compression stocking; knee high (20-30 mmHg) R60.0 Localized edema (lower extremities) 2 Each 020 Active acetaminophen (TYLENOL) 500 mg tabletIndicatio ns:Pain of left hand Take 1 Tab by mouth every 6 (six) hours as needed for pain 30 Tab 1 020 Active docusate sodium (COLACE) 100 mg capsuleIndicati ons:Constipatio n, unspecified constipation type Take 1 Capsule by mouth 2 (two) times daily 180 Capsule 024 Active hydrocortisone 2.5 % creamIndication s:Internal hemorrhoid Apply topically 2 (two) times daily 30 g 1 024 Active hydrocortisone (ANUSOL-HC) 25 mg suppositoryIndi cations:Interna l hemorrhoid Place 1 Suppository rectally 2 (two) times daily as needed for hemorrhoids 60 Suppository 2 024 Active NIFEdipine (ADALAT CC) 60 mg 24 hr tablet Take 1 tablet by mouth daily (prescribed by [facility]) 024 Active omeprazole (PRILOSEC) [address] capsule [facility]/pharmacy #[id number] [place], [place] [phone] 90 Each 0 Days Supply: 90Sig: TOME 1 C PSULA POR V A ORAL TODOS LOS D ASSource: 2 Outside SourcesAuthorized by: PETER GAMBLE 024 Active carvediloL (COREG) 25 mg tablet Take 1 Tablet by mouth 2 (two) times daily with a meal (Prescribed by [facility]) 024 Active tadalafiL (CIALIS) 20 mg tablet [facility] [address] [place] [address] 15 Each 4 Days Supply: 15Sig: TAKE 1 TABLET BY MOUTH ONCE DAILY NEEDED FOR SEXUAL ACTIVITY. TAKE APPROXIMATELY 30 MINUTES BEFORE SEXUAL ACTIVITY. DO NOT USE MORE THAN 1 DOSE PER 24 HOURSSource: Surescripts (Fill History, Ambulatory)Authorize d by: RAYMOND ELKINS 024 Active ENVARSUS XR 1 mg Tb24 Take 1 Tablet by mouth daily (Prescribed by [facility]) 024 Active ENVARSUS XR 0.75 mg Tb24 Take 2 Tablets by mouth daily (Prescribed by [facility]) 024 Active mycophenolate sodium 180 mg TbEC Take 3 Tablets by mouth 2 (two) times daily (Prescribed by [facility]) 024 Active blood pressure test kit-largeIndica tions:Essential hypertension SMBP Program - Dataguise - Checking BP 3 times per week 1 Kit 024 Active fluticasone (FLONASE) 50 mcg/actuation nasal spray USE 1 SPRAY INTRANASALLY 2 TIMES PER DAY FOR 90 DAYS FOR PEDIATRICS >2 Y/O 024 Active potassium chloride 20 mEq TbER TOME ANGEL TABLETA POR V A ORAL TODOS LOS D 024 Active clobetasoL (TEMOVATE) 0.05 % creamIndication s:Psoriasis APPLY 2 GRAMS TOPICALLY 2 (TWO) TIMES DAILY DIRECTED 60 g 2 025 Active selenium sulfide (SELSUN BLUE) 1 % topical suspensionIndic ations:Psoriasi s Apply topically once daily as needed for other reason (psoriasis) for up to 30 days 240 mL 5 025 2024 Active clobetasoL (TEMOVATE) 0.05 % creamIndication s:Psoriasis APPLY 2 GRAMS TOPICALLY 2 (TWO) TIMES DAILY DIRECTED 60 g 2 024 2024 Disconti nued(Reo rder (E-Cance l Not Sent)) selenium sulfide (SELSUN BLUE) 1 % topical suspensionIndic ations:Psoriasi s Apply topically once daily as needed for other reason (psoriasis) for up to 30 days 240 mL 1 025 2024 Disconti nued(Reo rder (E-Cance l Not Sent)) tirzepatide, weight loss, (ZEPBOUND) 5 mg/0.5 mL pnijIndications :Class 1 obesity due to excess calories with serious comorbidity and body mass index (BMI) of 33.0 to 33.9 in adult Inject 5 mg into the skin once a week stop 2.5 mg 2 mL 1 025 2024 Disconti nued(Den ied by Insuranc e) Active Problems Problem Noted Date Diagnosed Date Class 1 obesity due to exces s calories with serious comorbidity and body mass index (BMI) of 33.0 to 33.9 in adult 05/02/2024 Kidney transplant recipient 02/13/2024 Overview (11/24/2024): Completed living unrelated renal transplant 09/20/23 11/12/24 at [facility] Stable, no medication changes Referred to urology due to ES 09/12/24 - [facility] Stable, no medication changes. Recommended to increase activity, weight loss emphasized 07/04/24 - [facility] Allograft function: excellent function; serum creatinine stable Immunosuppression: tolerating; monitoring levels; adjust accordingly; prophylaxis therapy included: Bactrim d/c ed 03/21/24, mycelex d/c ed 12/22/23 & vlcyte d/c ed 03/16/24. BP and volume status: vol status optimal. BP at goal. 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 Constipation 02/13/2024 Internal hemorrhoid 02/13/2024 Erectile dysfunction 05/31/2023 Bleeding hemorrhoids 05/31/2023 Vitamin D deficiency 02/03/2021 Secondary hyperparathyroidism (HCC-CMS) 02/04/20 21 Overweight 02/03/2021 Nonadherence to medical treatment 02/03/2021 Localized edema 02/03/2021 Glomerulonephritis 02/03/2021 Anemia in chronic kidney disease 02/03/2021 Viral hepatitis C 02/02/2021 Renal cyst 02/02/2021 Overview (06/23/2023): 06/07/2023: Rayus; US of KUB: IMPRESSION: 1. Right renal 3.[address] scan recommended for further evaluation. No hydronephrosis. No obstructing renal calculi. 2. Bilateral increased renal echogenicity and diffuse renal cortical thinning. 3. Prostate enlarged. Proteinuria 02/02/2021 Lower abdominal pain 10/04/2019 Stage 3 chronic kidney disease ([facility]-CMS) 019 Overview (03/28/2019): 03/27/19 [facility]: 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--plan was to get serology, biopsy and repeat 24 hr Urine collection; BP ,130/80; glycemic control and hydration Elevated serum creatinine 03/05/2019 Obstructive sleep apnea syndrome 03/07/2017 Overview (03/07/2017): Cpap Chronic right-sided low back pain with right-demi ed sciatica 06/16/2016 Essential hypertension 06/15/2016 Psoriasis 06/15/2016 Resolved Problems Problem Noted Date Diagnosed Date Resolved Date Prediabetes 05/31/2023 08/16/2023 Class 2 severe obesity due t o excess calories with serious comorbidity and body mass index (BMI) of 36.0 to 36.9 in adult (HCC-CMS) 08/24/2018 11/23/2024 Encounters Date Type Department Care Team Description 12/24/2024 4:00 PM EST Office Visit [address] [address] Nick Schilling PharmD Essential hypertension (Primary Dx); Class 1 obesity due to excess calories with serious comorbidity and body mass index (BMI) of 33.0 to 33.9 in adult; Medication management 12/12/2024 Interim Notes [address] [address] [place] 11/23/2024 4:00 PM EST Office Visit [address] [address] Nick Schilling PharmD Essential hypertension (Primary Dx); Class 1 obesity due to excess calories with serious comorbidity and body mass index (BMI) of 33.0 to 33.9 in adult; Medication management 10/08/2024 4:00 PM EST Office Visit [address] [address] Nick Schilling PharmD Essential hypertension (Primary Dx); Class 2 severe obesity due to excess calories with serious comorbidity and body mass index (BMI) of 36.0 to 36.9 in adult ([facility]); Medication management 10/08/2024 Travel from Last 3 Months Immunizations Name Administration Dates Next Due MODERNA COVID-19 VACCINE BIVALENT, BLUE CAP, 6M+ 05/24/2023 Moderna COVID-19 Vaccine, re d cap blue label, 12+ Primary Series 01/24/2021,12/27/2020 TDAP 11/28/2018 ZOSTER VACCINE, RECOMBINANT (SHINGRIX) 4,05/24/2023 Family History Medical History Relation Name Comments Diabetes Mother Heart Problems Mother Relation Name Status Comments Father Alive Mother Alive Social [...] file Not on file Not on file Last Filed Vital Signs Vital Sign Reading Time Taken Comments Blood Pressure 110/70 12/24/2024 3:51 PM EST Pulse 73 12/24/2024 3:51 PM EST Temperature 36.8 ??C (98.3 ??F) 09/14/2024 3:45 PM ES T Respiratory Rate 16 12/24/2024 3:51 PM EST Oxygen Saturation 97% 12/24/2024 3:51 PM EST Inhaled Oxygen Concentration - - Weight 91.2 kg (201 lb) 12/24/2024 3:51 PM EST Height 165.1 cm (5' 5 ) 12/24/2024 3:51 PM EST Body Mass Index 33.45 12/24/2024 3:51 PM EST Plan of Treatment Health Maintenance Due Date Last Done Comments Imm-Hepatitis B (1 of 3 - 19 + 3-dose series) 1990 Imm-Pneumococcal (1 of 2 - PCV) 1990 CT Colonography 2016 FIT/gFOBT 2016 Fecal DNA 2016 Flexible Sigmoidoscopy 2016 [id number] ( season) 2024 08/28/2024, 05/24/2023, 10/13/2021, Additional history exists Depression Monitoring 12/15/2024 09/14/2024 , 05/24/2023, 05/21/2020 Annual Preventive Care Visit 09/14/2025, 09/14/2023, 11/28/2018, Additional history exists Diabetes Screening 09/14/2025 09/14/2024, 1 11/14/2023, 08/09/2023, Additional history exists Tobacco Screening 09/14/2025 09/14/2024 Lipid Screening 09/14/2027 09/14/2024, 07/24, 12/13/2018 Imm-DTaP/Tdap/Td (2 - Td or Tdap) 11/28/2028 019 Colonoscopy 11/23/2032 11/23/2022 Colorectal Cancer Screening 11/23/2032 HIV Screening Completed 12/13/2018 Imm-Influenza Discontinued 08/28/2024 Imm-Zoster, Recombinant Completed 09/14/2024, 05/24 Alcohol and Drug Screen Completed 11/23/19, 07/16/2024, 05/24/2023, Additional history exists Procedures Procedure Name Priority Date/Time Associated Diagnosis Comments REFERRAL SCANNED DOCUMENT 10/29/2024 3:00 AM EST OTHER ORDERS SCANNED DOCUMENT 10/12/2024 3:00 AM EST OTHER ORDERS SCANNED DOCUMENT 10/08/2024 3:00 AM EST HGA1C W/EAG Routine 09/14/2024 4:58 PM EST Obesity (BMI 30-39.9) LIPIDS W RFLX TO DIRECT LDL Routine 09/14/2024 4:58 PM EST Obesity (BMI 30-39.9) HISTORIC COLONOSCOPY 11/23/2022 3:00 AM EST ANTIBODY HIV-1&HIV-2 SINGLE RESULT Routine 12/13/2018 8:48 AM EST Encounter for screening for HIV from Last 3 Months or Most Recently Relevant to Health Maintenance Results * REFERRAL SCANNED DOCUMENT (10/29/2024 3:00 AM EST) 10/29/2024 3:00 AM EST us Tri Perez PA-C SCAN REFERRAL Final Result * OTHER ORDERS SCANNED DOCUMENT (10/12/2024 3:00 AM EST) Only the most recent of2 resultswithin the time period is included. 10/12/2024 3:00 AM EST Keith Miles MD SCAN OTHER ORDERS Final Resu lt * HGA1C W/EAG (09/14/2024 4:58 PM EST) HEMOGLOBIN A1C 5.6 <5.7 % of total Hgb [facility] Comment: For the purpose of screening for the presence of diabetes: <5.7% ? Consistent with the absence of diabetes 5.7-6.4% ?Consistent with increased risk for diabetes ?(prediabetes) > or =6.5% ??Consistent with diabetes This assay result is consistent with a decreased risk of diabetes. Currently, no consensus exists regarding use of hemoglobin A1c for diagnosis of diabetes in children. According to [place] Diabetes Association (ADA) guidelines, hemoglobin A1c <7.0% represents optimal control in non- diabetic patients. Different metrics may apply to specific patient populations. Standards of Medical Care in Diabetes(ADA). ?? EAG (MG/DL) 114 mg/dL [facility] EAG (MMOL/L) 6.3 mmol/L [address] Blood Blood / Unknown 09/14/2024 4 :58 PM EST 09/14/2024 4:59 PM EST Narrative [facility] - 09/15/2024 4:11 AM EST FASTING:NO Tri Perez PA-C LAB - BLOOD DRAW Edited Resu lt - Final [facility] [address] [place] [id number], [facility] [address] [place] [phone] * (ABNORMAL) LIPIDS W RFLX TO DIRECT LDL (09/14/2024 4:58 PM EST) CHOLESTEROL, TOTAL 167 <200 mg/dL Side.[facility] HDL CHOLESTEROL 34(L) > OR = 40 mg/dL Side.[facility] TRIGLYCERIDES 152(H) <150 mg/dL Side.Cr [facility] LDL-CHOLESTEROL 106(H) 99 mg/dL (calc) [facility] Comment: Reference range: <100 Desirable range <100 mg/dL for primary prevention; ?? <70 mg/dL for patients with CHD or diabetic patients with > or = 2 CHD risk factors. LDL-C is now calculated using the Nathaly calculation, which is a validated novel method providing better accuracy than the Friedewald equation in the estimation of LDL-C. Dallas SS et al. LISSETTE. 2013;310(19): 6234-1607 (http://education.[employer]/faq/BOI388) CHOL/HDLC RATIO 4.9 <5.0 (calc) Side.Cr [facility] NON-HDL CHOLESTEROL 133(H) <130 mg/dL (calc) Side.Cr [facility] Comment: For patients with diabetes plus 1 major ASCVD risk factor, treating to a non-HDL-C goal of <100 mg/dL (LDL-C of <70 mg/dL) is considered a therapeutic option. Blood Blood / Unknown 09/14/2024 4 :58 PM EST 09/14/2024 4:59 PM EST Narrative [facility] - 09/15/2024 4:11 AM EST FASTING:NO us Tri Perez PA-C LAB - BLOOD DRAW Final Resul t [facility] [address] [place] [id number], Side.Cr [address] [phone] * HISTORIC COLONOSCOPY (11/23/2022 3:00 AM EST) 11/23/2022 3:00 AM EST us Tri Perez PA-C PROCEDURES Final Result * HIV-1 & HIV-2 ANTIBODIES (12/13/2018 8:48 AM EST) HIV 1 AND 2 ANTIBODY SCREEN NEGATIVE NEGATIVE [facility] [employer] [facility] Comment: This assay is a 4th generation assay allowing for earlier detection of HIV infection by detecting the presence of the HIV-1 p24 antigen as well as the traditional antibodies to HIV type 1 (including group O) and type 2. ??Use of a 4th generation assay is the current CDC recommendation for HIV screening. Blood specimen (specimen) Blood / Unknown 12/13/2018 8:48 AM EST 12/13/2018 9:11 AM EST Narrative [facility] - 12/13/2018 1:15 PM EST [employer], [place] [address] Roof Painter - Nicole Fletcher MD PT ID [id number] ORD# [id number] Vince SPANN LAB - BLOOD DRAW Final Result Performing Organization Address City/State/[facility] Co de Phone Number [phone] [address], from Last 3 Months or Most Recently Relevant to Health Maintenance Insurance [facility] Care Teams Business Reporter Relationship Specialty Start Date End Date Tri Perez PA-C [address] [place] [address] PCP - General Internal Medicine 12/09/20
--- OUTSIDE RECORDS SUMMARY | 2024-12-25 10:48 | XMS_ITS | Encounter Summary ---
Author Organization [facility] Address [address] [place] [address] Care Team Providers Care Intake Nurse Name Role Phone Tri Perez PA-C Primary Care Provider +1 [phone] Encounter Details Date Type Department Care Team (Late st Contact Info) Description 05/28/2024 Patient Outreach [address] [address] Yana Eagle, Community Health Worker [address] [place] [address] Social History Tobacco Use Types Packs/Day Years [...] file Not on file Not on file COVID-19 Exposure Response Date Recorded In the last 10 days, have yo u been in contact with someone who was confirmed or suspected to have Coronavirus/COVID-19? No / Unsure 05/28/2024 3:21 PM EDT documented as of this encounter Plan of Treatment Not on file documented as of this encounter Visit Diagnoses Not on filedocumented in this encounter Additional Health Concerns Assessment Noted Time PHQ-9 Depression Total Score: 0 05/24/20 23 2:21 PM PDT documented as of this encounter Care Teams Intake Nurse Relationship Specialty Start Date End Date Tri Perez PA-C [facility] [place] [address] PCP - General Internal Medicine 12/09/20 documented as of this encounter
--- OUTSIDE RECORDS SUMMARY | 2024-12-25 10:48 | XMS_ITS | Encounter Summary ---
Author Organization [facility], Address [address] [address] Phone Care Team Providers Care Plumbing Mechanic Name Role Phone Tri Preez PA-C Primary Care Provider +1- [phone] Reason for Visit * Reason Comments Med Refill Encounter Details Date Type Department Care Team (Late st Contact Info) Description 07/05/2024 Refill [facility], [address] [place] [address] Bi Alfonso MD [address] [place] [phone] Social History Tobacco Use Types Packs/Day Years [...] on filedocumented in this encounter Care Teams Plumbing Mechanic Relationship Specialty Start Date End Date Tri Perez PA-C [address] [place] [address] PCP - General Physician Facility Coordinator 09/19/23 documented as of this encounter
[2024-12-25 11:04] LABS: MANUAL DIFF FLAG NO
[2024-12-25 11:07] LABS: Basophils Percent Auto 0.3 % (0-2); Eosinophils Absolute Auto 0.1 X10*3/uL (0.0-0.4); Eosinophils Percent Auto 1.9 % (0-4); Hematocrit 51.5 % (42.0-52.0); Hemoglobin 15.9 g/dl (14.0-18.0); Imm Gran Abs Auto 0.02 X10*3/uL (0.00-0.03); Imm Gran Pct Auto 0.3 % (0.0-0.4); Lymphocytes Absolute Auto 1.9 X10*3/uL (1.2-4.9); Lymphocytes Percent Auto 29.7 % (20-40); Mean Corpuscular HGB Conc 30.9 g/dl (31.0-36.0); Mean Corpuscular Hemoglobin 26.2 pg (27.0-33.0); Mean Corpuscular Volume 84.8 fL (80.0-98.0); Mean Platelet Volume 9.8 fL (9.4-12.4); Monocytes Absolute Auto 0.5 X10*3/uL (0.1-1.2); Monocytes Percent Auto 7.8 % (2-11); Neutrophils Absolute Auto 3.8 x10*3/uL (2.0-8.3); Platelet Count 180 X10*3/uL (160-400); Red Blood Count 6.07 X10*6/uL (4.60-5.80); Red Cell Distribution Width 14.6 % (11.0-16.0); White Blood Count 6.3 X10*3/uL (4.8-10.8)
[2024-12-25 11:16] LABS: Anion Gap 12 (12-20); Blood Urea Nitrogen 19 mg/dL (9-16); Calcium 10.2 mg/dL (8.4-10.2); Carbon Dioxide 29 mmol/L (22-29); Chloride 105 mmol/L (96-108); Estimated Glomerular Filt Rate 54; Magnesium 1.7 mg/dL (1.6-2.6); Phosphorus 2.3 mg/dL (2.7-4.5); Potassium 3.5 mmol/L (3.3-5.1); Sodium 142 mmol/L (135-145)
[2024-12-26 09:58] LABS: Tacrolimus Prograf 9.6 mcg/L
== END 2024-12-25 09:36 | disposition home or self-care (01) ==
LOC: HO.10HDL 09:35
PROVIDERS: Visit Provider Internal Medicine Nephrology
DX: I10 Essential (primary) hypertension (principal); N52.1 Erectile dysfunction due to diseases classified elsewhere; Z94.0 Kidney transplant status
CPT/HCPCS: 36415; 80051; 80197; 82310; 82565; 83735; 84100; 84520; 85025

== ENCOUNTER 2024-12-25 10:36 | Outpatient (AMB) | payer OTHER, SELFPAY ==
--- NOTE | 2024-12-25 11:02 | A.OFFVIS_ITS ---
Intake Visit Reasons: erectile dysfunction Intake Note: Patient is present for ERECGTILE DYSFUNCTION Urology Medication:TADALAFIL Antibiotic Allergy:PENICILLIN Blood Thinner:NONE Shiatsu Therapist Required: No Allergies Penicillins Allergy (Mild, Verified 12/25/24 11:04) Unknown HPI Comments Details: Pablo is a pleasant male. He is a patient of Dr. Perez. 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 Compliant with medications. Had erectile dysfunction Has found he is responsive to sildenafil 50 mg Prescription provided Six-month follow-up [facility] Medical History (Updated 10/29/24 @ 16:18 by Harish Lentz MD) History of hepatitis C History of end stage renal disease Surgical History History of kidney transplant Review of Systems Const Denies chills and Denies fever(s) Card Reports no additional complaints and Denies syncope Resp Denies cough GI Denies abdominal pain and Denies heartburn Reports as per HPI and Denies change in libido Neuro Denies syncope Psych Denies change in libido Endo Denies change in libido Physical Exam Const General: cooperative, healthy appearing, comfortable and no acute distress Orientation/consciousness: patient oriented x3 HEENT Face and sinus: Yes normal facial exam Mouth: moist mucous membranes Neck Neck: Yes normal visual inspection, Yes full ROM and Yes trachea midline Chest Chest palpation & inspection: normal inspection of the chest Resp Effort & Inspection: normal respiratory effort, able to speak in complete sentences and no respiratory distress GI Inspection: Yes normal to inspection Back/Spine/Pelvis Cervical Spine: normal cervical lordosis Thoracic/Lumbar Spine: thoracic and lumbar spine normal to inspection Skin General skin exam: no rashes or lesions noted Neuro General: patient oriented x3, gait normal, tone normal and moves all extremities Extrem General: Yes normal to inspection and Yes capillary refill normal Assessment & Plan Assessment & Plan (1) Erectile disorder: Code(s): N52.9 - Male erectile dysfunction, unspecified Category: Medical Plan On demand sildenafil Six-month follow-up Medications: New sildenafil administer 1/2 tab 60 minutes before intended activity BIN PCN Group [facility] 33 [id number] 100 mg PO ONCE 30 days PRN 30 tabs 1RF sexual activity N52.9 - Male erectile dysfunction, unspecified Patient Instructions: This note is constructed using voice recognition software. While every effort has been made to ensure accuracy planer feeder errors may have been included. Imaging studies, laboratory and physical exam results were discussed and reviewed in detail. No major barriers to patient understanding were identified. An opportunity to ask questions regarding the treatment plan was provided. All questions were answered. The patient expressed understanding and agreement with the above treatment plan. The patient is aware they should contact our office by phone for worsening of their current condition or the appearance of new urologic symptoms. Compliance is encouraged with any medications and followup testing that is ordered. It is a privilege to participate in the urologic care of your patient. If you have any questions or concerns regarding treatment for the above conditions, or other urologic issues, please do not hesitate to contact me. The office telephone contact is [phone]. Sincerely, Dr Washington Barbosa MD, JUSTICE [facility] - Urology Compassionate Specialist Care for the Genitourinary System Coding Level of Care Code New Pt Level 4 (26194) Diagnoses Erectile disorder N52.9
--- OUTSIDE RECORDS SUMMARY | 2024-12-25 12:56 | XMS_ITS | Encounter Summary ---
Author Organization [facility], Address [address] [address] Phone Care Team Providers Care International Operations Manager Name Role Phone Tri Perez PA-C Primary Care Provider +1- [phone] Encounter Details Date Type Department Care Team (Late st Contact Info) Description 10/18/2023 Documentation Only [facility], [address] [place] [address] Bi Alfonso MD [address] [place] [phone] Social History Tobacco Use Types Packs/Day Years [...] on filedocumented in this encounter Care Teams International Operations Manager Relationship Specialty Start Date End Date Tri Perez PA-C [address] [place] [address] PCP - General Physician Wood Tile Installer 09/19/23 documented as of this encounter
--- OUTSIDE RECORDS SUMMARY | 2024-12-25 12:56 | XMS_ITS | Encounter Summary ---
Author Organization [facility], Address [address] [place] [address] Phone Care Team Providers Care Arterial Embalmer Name Role Phone Tri Perez PA-C Primary Care Provider +1- [phone] Encounter Details Date Type Department Care Team (Late st Contact Info) Description 11/25/2023 Documentation Only [facility], [address] [place] [address] Tor Alfred, DO [address] [place] [address] Social History Tobacco Use Types [...] on filedocumented in this encounter Care Teams Arterial Embalmer Relationship Specialty Start Date End Date Tri Perez PA-C [address] [place] [address] PCP - General Physician Display Specialist 09/19/23 documented as of this encounter
--- OUTSIDE RECORDS SUMMARY | 2024-12-25 12:56 | XMS_ITS | Clinical Summary ---
Author Organization [facility] Address [address] [facility] [address] [place] [address] Phone Care Team Providers Care Minilab Operator Name Role Phone Tri Perez PA-C Primary Care Provider +1- [phone] Allergies Active Allergy Reactions Criticality Noted Date [...] [place] Care Teams Minilab Operator Relationship Specialty Start Date End Date Tri Perez PA-C [address] [place] [address] PCP - General Physician Hand Finisher 09/19/23
--- OUTSIDE RECORDS SUMMARY | 2024-12-25 12:56 | XMS_ITS | Encounter Summary ---
Author Organization [facility] Address [address] [facility] [address] [place] [address] Phone Care Team Providers Care Crystal Flat Grinder Name Role Phone Tri Perez PA-C Primary Care Provider +1- [phone] Reason for Visit * Reason Comments Med Refill Encounter Details Date Type Department Care Team ([facility] st Contact Info) Description 08/28/2022 Refill [facility] [address] [facility] [address] [place] [phone] Sudheer Hartman MD [address] [facility] [address] [place] [phone] Social History Tobacco Use Types Packs/Day Years [...] on filedocumented in this encounter Care Teams Crystal Flat Grinder Relationship Specialty Start Date End Date Tri Perez PA-C [address] [place] [address] PCP - General Physician Rn Case Manager 09/19/23 documented as of this encounter
--- OUTSIDE RECORDS SUMMARY | 2024-12-25 12:57 | XMS_ITS | Encounter Summary ---
Author Organization [facility] Address [address] [place] [address] Care Team Providers Care Oxygen Equipment Technician Name Role Phone Tri Perez PA-C Primary Care Provider +1 [phone] Encounter Details Date Type Department Care Team (Late st Contact Info) Description 05/28/2024 Patient Outreach [address] [address] Yana Eagle, Community Health Worker [address] [place] [address] Social History Tobacco Use Types Packs/Day Years [...] documented as of this encounter Care Teams Oxygen Equipment Technician Relationship Specialty Start Date End Date Tri Perez PA-C [facility] [place] [address] PCP - General Internal Medicine 12/09/20 documented as of this encounter
--- OUTSIDE RECORDS SUMMARY | 2024-12-25 12:57 | XMS_ITS | Encounter Summary ---
Author Organization [facility] Address [address] [facility] [address] [place] [address] Phone Care Team Providers Care Crocheter Hand Name Role Phone Tri Perez PA-C Primary Care Provider +1- [phone] Reason for Visit * Reason Comments Med Refill Encounter Details Date Type Department Care Team ([facility] st Contact Info) Description 03/13/2022 Refill [facility] [address] [facility] [address] [place] [phone] Sudheer Hartman MD [address] [facility] [address] [place] [phone] Social History Tobacco Use Types Packs/Day Years [...] on filedocumented in this encounter Care Teams Crocheter Hand Relationship Specialty Start Date End Date Tri Perez PA-C [address] [place] [address] PCP - General Physician Top Loader 11/27/23 documented as of this encounter
--- OUTSIDE RECORDS SUMMARY | 2024-12-25 12:57 | XMS_ITS | Encounter Summary ---
Author Organization [facility] Address [address] [place] [address] Care Team Providers Care Band Log Mill And Carriage Operator Name Role Phone Tri Perez PA-C Primary Care Provider +1 [phone] Reason for Visit * Reason Comments Hypertension Encounter Details Date Type Department Care Team (Late st Contact Info) Description 12/24/2024 4:00 PM EST Office Visit [facility] [address] [place] [address] Nick Schilling, LeightonD [address] [place] [address] Essential hypertension (Primary Dx); Class 1 obesity due to excess calories with serious comorbidity and body mass index (BMI) of 33.0 to 33.9 in adult; Medication management; Kidney transplant recipient Social History Tobacco Use Types Packs/Day Years [...] 3:51 PM EST documented in this encounter Progress Notes * Nick Schilling PharmD - 12/24/2024 3:58 PM EST Pablo Escobar is a 54 year old, Sami-speaking White Bulgarian male who presents today for a follow-up visit in Hypertension Clinic with Nick Schilling PharmD Bowling Ball Molder: No bilingual interpreter needed for today's visit as provider speaks patient's familiar language. CHW: None Accompanied by: None HPI: Patient reports: Endorses use of carvedilol and nifedipine daily as directed, denies missing doses or taking extra doses. Continues to monitor BP 2-3 times per week. Reports BP values between 139-140/82-89 mmHg. Patient reports BP cuff is a large, and may need to use extra large. Drinks 1 cup of coffee daily every morning. Continues to follow low-sodium diet although admits to use of Sharon complete seasoning a few times per week. Walking outside a few days per week during work, performing home exercises as well. New concerns: None ROS (last 1-2 weeks): Chest pain/chest tightness No,dizziness/lightheadedness No, shortness of breath No, blurry vision No, headaches Yes see patient reports , palpitations No, peripheral edema No. Specialists managing HTN: Nephrology (Location: [facility], Dr Tor Moreira, last seen 10/29/24, follow-up: unclear): see problem list. ASCVD Patient has the following risk factors/co-morbidities for hypertension: Chronic Kidney Disease, Dyslipidemia, Family History, and Obesity Hx of stroke/[place]/HF/CAD? No Family cardiac hx: mother - CABG, maternal uncle CABG. Tobacco Use: Former Smoker: Quit 13-14 years ago ([id number]) Tobacco Intervention:provided smoking cessation counseling Alcohol Use: Former drinker, quit ~2021 Pharmacotherapy: Current anti-hypertensive pharmacological regimen: Carvedilol 25 mg twice daily with meals (prescribed by [facility]) Nifedipine ER 60 mg daily (prescribed by [facility]) Patient reported medication NON-adherence: No missed doses and No extra doses Did you take your medication today? Yes Previous anti-hypertensives and reason for discontinuation: Amlodipine (D/C 05/02/24) due to transitioned to nifedipine by nephro (unclear date) Lisinopril & losartan (D/C 02/03/22) ? Losartan-HCTZ (D/C 02/04/21) due to therapy completed? Additional OTC medications or supplements: None Patient reports the following medication side effects: none Home BP monitoring: Patient reports checking blood pressure at home 2 to 3 times per week. 139/82 mmHg 140s/89 mmHg OBJECTIVE Last 3 BP Readings: Date: BP: 12/24/2024 110/70 11/23/2024 110/64 10/08/2024 118/80 Wt Readings from Last 3 Encounters: 12/24/24 201 lb (91.2 kg) 11/23/24 201 lb (91.2 kg) 10/08/24 218 lb (98.9 kg) Allergies reviewed: Allergies Allergen Reactions Lisinopril Muscle cramping Penicillin Rash Estimated Creatinine Clearance: 57.8 mL/min (A) (by C-G formula based on SCr of 1.55 mg/dL (H)). Lab Results Component Value Date NA 138 09/14/2024 K 3.4 (L) 09/14/2024 BUN 23 09/14/2024 BUNCREAT 15 09/14/2024 CREATININE 1.55 (H) 09/14/2024 EGFR 53 (L) 09/14/2024 Lab Results Component Value Date TSH 0.94 09/14/2024 Lab Results Component Value Date TRIGLYC 152 (H) 09/14/2024 CHOL 167 09/14/2024 HDL 34 (L) 09/14/2024 LDL 106 (H) 09/14/2024 CHOLHDL 4.9 09/14/2024 NONHDL 133 (H) 09/14/2024 The 10-year ASCVD risk score (Marni WALSH, et al., 2019) is: 4.8% ASSESSMENT BP target:Per ACC/AHA guidelines, for adults with confirmed hypertension, without additional markers of increased CVD risk, a BP target of less than 130/80 mmHg may be reasonable. Hypertension - improved based on in-clinic BP, poorly controlled based SMBP No medication therapy problems identified Na, K, Ca, Scr, eGFR: stable as of 09/14/24, continues to follow-up with nephro BP monitorin to 3 times per week All cultural groups (Concern - PharmD): What worries do you have about your medications? : None PLAN I10 Essential hypertension (primary encounter diagnosis) Hypertension - improved based on in-clinic BP, poorly controlled based SMBP Consider issuing new RX for XL BP cuff as current large cuff may be too small for patient, leading to falsely elevated BP values at home. BP is consistently well-controlled in clinic. Continue to follow-up with nephrology. Will continue current medications: Carvedilol 25 mg twice daily with meals (prescribed by [facility]) Nifedipine ER 60 mg daily (prescribed by [facility]) If BP hypertensive, next step: increase nifedipine from 60 mg to 90 mg daily E66.811,E66.09,Z68.33 Class 1 obesity due to excess calories with serious comorbidity and body massindex (BMI) of 33.0 to 33.9 in adult Lifestyle measures:BMI follow up plan: The patient was counseled regarding nutrition and physical activity. Counseled patient on importance of diet and lifestyle (weight loss, low-sodium (WATSON) diet,decrease carbohydrates such as rice, bread, pasta and corn meal, increase non-starchy vegetables, no potatoes or corn, increase protein, and increase physical activity with at least 150 minutes of moderate physical activity per week. Unfortunately, patient's insurance is currently not covering Zepbound or Wegovy for weight loss, therefore counseled patient to continue with diet and lifestyle modifications. Z79.899 Medication management I continue to not feel comfortable transferring medications to [facility] pharmacy, as he is taking mycophenolate and Envarsus to help prevent organ rejection, which are very important. It is very difficultto obtain Envarsus and I do not believe that [facility] pharmacy will be able to consistently obtain this medication without any issues. I recommend that patient continue with [facility] pharmacy. Patient also reports convenience with [facility] pharmacy. Polypharmacy Intervention/Adherence Aids Counseling: None Adherence Aids Activated/Used: None Follow-up appt scheduled in 6 months. EDUCATION PROVIDED: Cultural Beliefs Education: Necessity: None Concerns: None Implement goal setting Counseled patient to continue lifestyle modifications: weight reduction, diet, exercise/physical activity, and caffeine intake Proper conditions for taking blood pressure. Factors to also consider that may affect BP include, smoking, caffeine, alcohol use, pain, and exercise. Seeking emergency treatment if persistent chest pain, blurry vision, and/or palpitations and BP >180/110 mmHg. Medication(s): (indication, dosage, administration, storage, side effects, missing dose) Copper Roller Handler Printing Complications of Uncontrolled Hypertension REFERENCES: Javi PK, Sandra RM, Kanwal WS, Robb WEEKS Jr, Milton KJ, Yenny Anderson C, Mel SM, Judi S, Becky KA, Drew DW, Indigo EJ, Nataliia P, Efren B, Ryan FRANCO Jr, Rd CC, Caleb RS, Karen SJ, Silvano RJ, Dave RICARDO Sr, Papito KimD, Bebo KimT Jr. 2017 ACC/AHA/AAPA/ABC/ACPM/AG S/APhA/LUANN/ASPC/NMA/PCNA Guideline for the Prevention, Detection, Evaluation, and Management of High Blood Pressure in Adults: Executive Summary: A Report of the [place] College [employer]/[place] Heart Association Task Force on Clinical Practice Guidelines. Hypertension. 2018 Mar;71(6):9515-3220. doi: 10.1161/HYP.[id number]. Epub 2016Sep 05. Erratum in: Hypertension. 2018 Mar;71(6):r163-d592. Erratum in: Hypertension. 2018 Jun;72(3):e33. PMID: [id number]. Leighton JoeD documented in this encounter Miscellaneous Notes * Patient Instructions - Nick Schilling PharmD - 12/24/2024 4:07 PM EST Instrucciones: Presion arterial normal: menos de 130/80 mmHg (no debe ser menos a 100/60 mmHg) 2. Pulso normal: de 60 a 100 bpm 3. Busque atenci??n de emergencia si hosikns presi??n arterial es superior a 180/110 mmHg y tiene s??ntomas josefa dolor tor??cico, opresi??n en el pecho, mareos/aturdimiento, nubia de clifford, palpitaciones u otros s??ntomas pertinentes. Axel Schilling PharmD, [facility] Clinical Pharmacist Oprima 2 para Espanol Pone la extension [phone] If you are not able to keep [...] for long-term (current) use of other medications Kidney transplant recipient documented in this encounter Additional Health Concerns Assessment Noted Time PHQ-9 Depression Total Score: 0 05/24/20 23 2:21 PM PDT documented as of this encounter Care Teams Band Log Mill And Carriage Operator Relationship Specialty Start Date End Date Tri Perez PA-C [facility] [place] [address] PCP - General Internal Medicine 12/09/20 documented as of this encounter
--- OUTSIDE RECORDS SUMMARY | 2024-12-25 12:57 | XMS_ITS | Encounter Summary ---
Author Organization [facility] Address [address] [place] [address] Care Team Providers Care Lay Out Former Name Role Phone Tri Perez PA-C Primary Care Provider +1 [phone] Encounter Details Date Type Department Care Team (Late st Contact Info) Description 04/02/2024 Patient Outreach [address] [address] Yana Eagle, Community Health Worker [address] [place] [address] Social History Tobacco Use Types Packs/Day Years [...] documented as of this encounter Care Teams Lay Out Former Relationship Specialty Start Date End Date Tri Perez PA-C [facility] [place] [address] PCP - General Internal Medicine 12/09/20 documented as of this encounter
--- OUTSIDE RECORDS SUMMARY | 2024-12-25 12:57 | XMS_ITS | Clinical Summary ---
Author Organization [facility] Address [address] [place] [address] Care Team Providers Care Government Service Executive Name Role Phone Unavailable Primary Care Provider Unavailabl e Surgical History Surgery Date Site/Laterality Comments CHOLECYSTECTOMY PROCEDURE: [place] LAPAROSCOPY SURG CHOLECYSTECTOMY Medical History Medical History [...] Documents on File Type Date Recorded Patient Mutual Fund Sales Agent Expl anation Health Care Decision (hx) 06/11/2020 AD CHANDRA DIRECTIVE Health Care Decision (hx) 06/11/2020 AD CHANDRA DIRECTIVE
--- OUTSIDE RECORDS SUMMARY | 2024-12-25 12:57 | XMS_ITS | Encounter Summary ---
Author Organization [facility], Address [address] [address] Phone Care Team Providers Care Medical Translator Name Role Phone Tri Perez PA-C Primary Care Provider +1- [phone] Reason for Visit * Reason Comments Med Refill Encounter Details Date Type Department Care Team (Late st Contact Info) Description 07/05/2024 Refill [facility], [address] [address] Bi Alfonso MD [address] [facility] [place] [phone] Social History Tobacco Use Types Packs/Day Years [...] on filedocumented in this encounter Care Teams Medical Translator Relationship Specialty Start Date End Date Tri Perez PA-C [address] [place] [address] PCP - General Physician Cdl Service Technician 09/19/23 documented as of this encounter
--- OUTSIDE RECORDS SUMMARY | 2024-12-25 12:57 | XMS_ITS | Clinical Summary ---
Author Organization [facility] Address [address] [place] [address] Care Team Providers Care Scheduling Specialist Name Role Phone Tri Perez PA-C Primary Care Provider [phone] [phone] Source Comments PLEASE NOTE, if this patient [...] mouth daily (prescribed by [facility]) 024 Active omeprazole (PRILOSEC) [address] capsule [facility]/pharmacy #[id number] [place], [place] [phone] 90 Each 0 Days Supply: 90Sig: TOME 1 C PSULA POR V A ORAL TODOS LOS D ASSource: 2 Outside SourcesAuthorized by: PETER GAMBLE 024 Active carvediloL (COREG) 25 mg tablet Take 1 Tablet by mouth 2 (two) times daily with a meal (Prescribed by [facility]) 024 Active tadalafiL (CIALIS) 20 mg tablet [facility] [address] [place] [address] 15 Each 4 Days Supply: 15Sig: TAKE 1 TABLET BY MOUTH ONCE DAILY NEEDED FOR SEXUAL ACTIVITY. TAKE APPROXIMATELY 30 MINUTES BEFORE SEXUAL ACTIVITY. DO NOT USE MORE THAN 1 DOSE PER 24 HOURSSource: Surescripts (Fill History, Ambulatory)Authorize d by: RAYMOND ELKINS 024 Active ENVARSUS XR 1 mg Tb24 Take 1 Tablet by mouth daily (Prescribed by [facility]) 024 Active ENVARSUS XR 0.75 mg Tb24 Take 2 Tablets by mouth daily (Prescribed by [facility]) 024 Active mycophenolate sodium 180 mg TbEC Take 3 Tablets by mouth 2 (two) times daily (Prescribed by [facility]) 024 Active blood pressure test kit-largeIndica tions:Essential hypertension SMBP Program - Intent HQ - Checking BP 3 times per week [...] adult 05/02/2024 Kidney transplant recipient 02/13/2024 Overview (12/25/2024): Completed living unrelated renal transplant 09/20/23 10/29/24 at [facility] Stable, no medication changes Referred to urology due to ES 09/12/24 - [facility] Stable, no medication changes. 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--plan was to get [...] Description 12/24/2024 4:00 PM EST Office Visit [address] [phone] Nick Schilling PharmD Essential hypertension (Primary Dx); Class 1 obesity due to excess calories with serious comorbidity and body mass index (BMI) of 33.0 to 33.9 in adult; Medication management; Kidney transplant recipient 12/12/2024 Interim Notes [address] [phone] [place] 11/23/2024 4:00 PM EST Office Visit [address] [phone] Nick Schilling PharmD Essential hypertension (Primary Dx); Class 1 obesity due to excess calories with serious comorbidity and body mass index (BMI) of 33.0 to 33.9 in adult; Medication management 10/08/2024 4:00 PM EST Office Visit [address] [phone] Nick Schilling PharmD Essential hypertension (Primary Dx); Class 2 severe obesity due to excess calories with serious comorbidity and body mass index (BMI) of 36.0 to 36.9 in adult ([facility]); Medication management 10/08/2024 Travel from Last 3 [...] 2016 Fecal DNA 2016 Flexible Sigmoidoscopy 2016 [id number] ( season) 2024 08/28/2024, 05/24/2023, 10/13/2021, Additional [...] A1C 5.6 <5.7 % of total Hgb [facility] Comment: For the purpose of screening for the presence of diabetes: <5.7% ? Consistent with the absence of diabetes 5.7-6.4% ?Consistent with increased risk for diabetes ?(prediabetes) > or =6.5% ??Consistent with diabetes This assay result is consistent with a decreased risk of diabetes. Currently, no consensus exists regarding use of hemoglobin A1c for diagnosis of diabetes in children. According to [place] Diabetes Association (ADA) guidelines, hemoglobin A1c <7.0% represents optimal control in non- diabetic patients. Different metrics may apply to specific patient populations. Standards of Medical Care in Diabetes(ADA). ?? EAG (MG/DL) 114 mg/dL [facility] EAG (MMOL/L) 6.3 mmol/L [facility] Blood Blood / Unknown 09/14/2024 4 :58 PM EST 09/14/2024 4:59 PM EST Narrative [facility] - 09/15/2024 4:11 AM EST FASTING:NO Tri Perez PA-C LAB - BLOOD DRAW Edited Resu lt - Final [facility] [address] [place] [id number], [facility] Robert Applebaum MD [address] [place] [phone] * (ABNORMAL) LIPIDS W RFLX TO DIRECT LDL (09/14/2024 4:58 PM EST) CHOLESTEROL, TOTAL 167 <200 mg/dL [facility] HDL CHOLESTEROL 34(L) > OR = 40 mg/dL [facility] TRIGLYCERIDES 152(H) <150 mg/dL [facility] LDL-CHOLESTEROL 106(H) 99 mg/dL (calc) [facility] Comment: Reference range: <100 Desirable range <100 mg/dL for primary prevention; ?? <70 mg/dL for patients with CHD or diabetic patients with > or = 2 CHD risk factors. LDL-C is now calculated using the Nathaly calculation, which is a validated novel method providing better accuracy than the Friedewald equation in the estimation of LDL-C. Dallas SS et al. LISSETTE. 2013;310(49): 3814-1467 (http://education.FibeRio/faq/CKB997) CHOL/HDLC RATIO 4.9 <5.0 (calc) [facility] NON-HDL CHOLESTEROL 133(H) <130 mg/dL (calc) [facility] Comment: For patients with diabetes plus 1 major ASCVD risk factor, treating to a non-HDL-C goal of <100 mg/dL (LDL-C of <70 mg/dL) is considered a therapeutic option. Blood Blood / Unknown 09/14/2024 4 :58 PM EST 09/14/2024 4:59 PM EST Narrative [facility] - 09/15/2024 4:11 AM EST FASTING:NO us Tri Perez PA-C LAB - BLOOD DRAW Final Resul t [facility] [address] [place] [id number], [facility] [address] [address] * HISTORIC COLONOSCOPY (11/23/2022 3:00 AM EST) 11/23/2022 3:00 AM EST us Tri Perez PA-C PROCEDURES Final Result * HIV-1 & HIV-2 ANTIBODIES (12/13/2018 8:48 AM EST) HIV 1 AND 2 ANTIBODY SCREEN NEGATIVE NEGATIVE [facility] Comment: This assay is a 4th generation [...] AM EST 12/13/2018 9:11 AM EST Narrative [facility] - 12/13/2018 1:15 PM EST [employer], [place] [address] Medical Transcriptionist - Nicole Fletcher MD PT ID [id number] ORD# [id number] Vince SPANN LAB - BLOOD DRAW Final Result [facility] [employer] [address], from Last 3 Months or Most Recently Relevant to Health Maintenance Insurance [place] [address] Care Teams Scheduling Specialist Relationship Specialty Start Date End Date Tri Perez PA-C [address] [place] [address] PCP - General Internal Medicine 12/09/20
--- OUTSIDE RECORDS SUMMARY | 2024-12-25 12:57 | XMS_ITS | Encounter Summary ---
Author Organization [facility] Address [address] [place] [address] Care Team Providers Care Director Of Spa And Guest Experience Name Role Phone Tri Perez PA-C Primary Care Provider [phone] Encounter Details Date Type Department Care Team (Late st Contact Info) Description 12/12/2024 Interim Notes [facility] Main [address] [place] [phone] Dorene Garcia [place] [address] [place], [place] [id number] Social History Tobacco Use Types Packs/Day Years [...] documented as of this encounter Care Teams Director Of Spa And Guest Experience Relationship Specialty Start Date End Date Tri Perez PA-C [address] [place] [id number] PCP - General Internal Medicine 12/09/20 documented as of this encounter
--- OUTSIDE RECORDS SUMMARY | 2024-12-25 12:57 | XMS_ITS | Encounter Summary ---
Author Organization [facility], Address [address] [address] Phone Care Team Providers Care Plastics Supervisor Name Role Phone Tri Perez PA-C Primary Care Provider [phone] Reason for Visit * Reason Comments Med Refill Encounter Details Date Type Department Care Team (Late st Contact Info) Description 08/08/2024 Refill [facility], [address] [place] [address] Bi Alfonso MD [address] [place] [phone] Social History Tobacco Use Types Packs/Day Years [...] on filedocumented in this encounter Care Teams Plastics Supervisor Relationship Specialty Start Date End Date Tri Perez PA-C [address] [place] [address] PCP - General Physician Quantitative Developer 09/19/23 documented as of this encounter
== END 2024-12-25 11:44 | disposition home or self-care (01) ==
PROVIDERS: PCP Physician Assistant; Visit Provider Urology
DX: N52.9 Male erectile dysfunction, unspecified (principal)
CPT/HCPCS: 99204

== ENCOUNTER 2024-12-28 15:38 | Outpatient (AMB) | payer OTHER, SELFPAY ==
--- NOTE | 2024-12-28 15:44 | HO.NEPHOV ---
Vital Signs 12/28/24 15:45 Height 5 ft 5 in Weight 205 lb BMI 34.1 BP 122/70 Blood Pressure Location Rt brachial Position Sitting Pulse 70 Pulse Source Pulse Oximeter Pulse Oximetry (%) 97 Oxygen Delivery Method Room Air Intake Visit Reasons: 2mon follow up w/labs-Conf Stage Electrician Helper Required: No Accompanied by: Self / Same As Patient Allergies Penicillins Allergy (Mild, Verified 12/28/24 15:45) Unknown HPI Comments Details: Pablo was in follow-up of his renal transplant. He was in [place] recently for a few weeks. 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 He underwent living unrelated renal transplant on 09/20/2023. He had stent removed on 10/10/2023. He had a panel reactive antibody of 25. Induction was done with Camp[facility]. He had no delayed graft function. He required no dialysis treatment post transplant. CMV status of the donor was positive and recipient was positive as well. EBV status of the donor was negative and recipient was positive. Hepatitis-B core antibody for donor and recipient was negative. Hepatitis C virus antibody was negative for donor and recipient. Bk virus PCR was negative as of 12/21/2023. His immunosuppression included Envarsus and Mycophenolate. He did not have any rejection episodes post transplant. He had some fluctuant blood pressure in the last few months which has been better. He had transaminitis which is resolved. His donor specific antibodies were negative as of 12/13/2023. His immunosuppression included Envarsus 2.5 mg daily and mycophenolate 540 mg twice daily. His Prophylaxis Therapy included (Drug/Discontinuation Date) bactrim d/c ed 03/21/24, mycelex d/c ed 12/22/23 & valcyte d/c ed 03/16/24. He had no readmissions the 1st 3 months. Currently he feels well. He is compliant with medications. [facility] Medical History (Updated 10/29/24 @ 16:18 by Harish Lentz MD) History of hepatitis C History of end stage renal disease Surgical History History of kidney transplant Review of Systems Const All systems reviewed & are unremarkable except as noted in HPI and below Physical Exam Vital Signs: Last Vital Signs Pulse 70 12/28/24 15:45 BP 122/70 12/28/24 15:45 Pulse Ox 97 12/28/24 15:45 Oxygen Delivery Method Room Air 12/28/24 15:45 BMI result Body Mass Index 34.1 Const General: comfortable and no acute distress Orientation/consciousness: patient oriented x3 HEENT Head: Yes normocephalic Mouth: Normal oral and palatal mucosa present Eyes EOM: EOMs intact bilaterally Neck Neck: Yes supple Resp Auscultation: clear to auscultation bilaterally Cardio Jugular venous distension: no JVD Rate: regular rate Heart sounds: Murmur heart sound present GI Palpation (GI): Soft to palpation Auscultation: normal bowel sounds Neuro General: patient oriented x3 and moves all extremities Extrem General: Yes no pedal edema Results Reviewed Nephrology Results: Hgb 15.9 g/dl (14.0-18.0) 12/25/24 WBC 6.3 X10*3/uL (4.8-10.8) 12/25/24 Plt Count 180 X10*3/uL (160-400) 12/25/24 Sodium 142 mmol/L (135-145) 12/25/24 Potassium 3.5 mmol/L (3.3-5.1) 12/25/24 Chloride 105 mmol/L (96-108) 12/25/24 Carbon Dioxide 29 mmol/L (22-29) 12/25/24 BUN 19 mg/dL (9-16) H 12/25/24 Creatinine 1.37 mg/dL (0.5-1.4) 12/25/24 Calcium 10.2 mg/dL (8.4-10.2) 12/25/24 Phosphorus 2.3 mg/dL (2.7-4.5) L 12/25/24 PTH Intact 120.6 pg/mL (8.7-77.1) H 08/15/24 Urine Creatinine 89.50 mg/dL 07/03/24 Protein/Creatinin Ratio 0.28 (<0.2) H 07/03/24 Assessment & Plan Assessment & Plan (1) History of kidney transplant: Code(s): Z94.0 - Kidney transplant status Category: Surgical (2) Hypertension: Code(s): I10 - Essential (primary) hypertension Category: Medical Qualifiers: Hypertension type: primary hypertension Qualified Code(s): I10 - Essential (primary) hypertension Plan 1. Allograft function: excellent function; serum creatinine stable 2. Immunosuppression: tolerating; monitoring levels; adjust accordingly; Prophylaxis Therapy included (Drug/Discontinuation Date) bactrim d/c ed 03/21/24, mycelex d/c ed 12/22/23 & valcyte d/c ed 03/16/24. Reduced tacrolimus to 2 mg daily 3. BP and volume status: Vol status optimal. BP at goal 4. Metabolic parameters: stable; follow up labs 5. Hematologic parameters: counts excellent 6. Other: needs to increase activity; weight loss emphasized Orders: Orders Complete Blood Count Auto Diff 2 Months I10 - Essential (primary) hypertension, Z94.0 - Kidney transplant status Creatinine 2 Months I10 - Essential (primary) hypertension, Z94.0 - Kidney transplant status Calcium 2 Months I10 - Essential (primary) hypertension, Z94.0 - Kidney transplant status Magnesium 2 Months I10 - Essential (primary) hypertension, Z94.0 - Kidney transplant status Tacrolimus Prograf 2 Months I10 - Essential (primary) hypertension, Z94.0 - Kidney transplant status Blood Urea Nitrogen 2 Months I10 - Essential (primary) hypertension, Z94.0 - Kidney transplant status Electrolytes 2 Months I10 - Essential (primary) hypertension, Z94.0 - Kidney transplant status Phosphorus 2 Months I10 - Essential (primary) hypertension, Z94.0 - Kidney transplant status Coding Level of Care Code Est Pt Level 4 (85324) Diagnoses History of kidney transplant Z94.0 Primary hypertension I10 Hypertension type: primary hypertension
[2024-12-28 15:45] VITALS: BP 122/70; PULSE 70; O2SAT 97; BMI 34.1
--- OUTSIDE RECORDS SUMMARY | 2024-12-28 17:07 | XMS_ITS | Encounter Summary ---
Author Organization [facility] Address [address] [place] [address] Phone Care Team Providers Care Package Sealer Name Role Phone Tri Perez PA-C Primary Care Provider [phone]- [phone] Reason for Visit * Reason Comments Med Refill Encounter Details Date Type Department Care Team ([facility] st Contact Info) Description 03/13/2022 Refill [facility] [address] [place] [phone] Sudheer Hartman MD [address] [facility] [address] [place] [phone] Social History Tobacco Use Types Packs/Day Years [...] on filedocumented in this encounter Care Teams Package Sealer Relationship Specialty Start Date End Date Tri Perez PA-C [address] [place] [address] PCP - General Physician Video Game Programmer 11/27/23 documented as of this encounter
--- OUTSIDE RECORDS SUMMARY | 2024-12-28 17:07 | XMS_ITS | Encounter Summary ---
Author Organization [facility] Address [address] [place] [address] Care Team Providers Care Donor Recruiter Name Role Phone Tri Perez PA-C Primary Care Provider [phone] Encounter Details Date Type Department Care Team (Late st Contact Info) Description 05/28/2024 Patient Outreach [address] [phone] Yana Eagle, Community Health Worker [address] [place] [address] Social History Tobacco Use Types Packs/Day Years [...] documented as of this encounter Care Teams Donor Recruiter Relationship Specialty Start Date End Date Tri Perez PA-C [facility] [place] [address] PCP - General Internal Medicine 12/09/20 documented as of this encounter
--- OUTSIDE RECORDS SUMMARY | 2024-12-28 17:07 | XMS_ITS | Encounter Summary ---
Author Organization [facility], Address [address] [address] Phone Care Team Providers Care Manager Rental Name Role Phone Tri Perez PA-C Primary Care Provider [phone]- [phone] Encounter Details Date Type Department Care Team (Late st Contact Info) Description 10/18/2023 Documentation Only [facility], [address] [place] [address] Bi Alfonso MD [address] [place] [phone] Social History Tobacco Use Types Packs/Day Years [...] filedocumented in this encounter Care Teams Manager Rental Relationship Specialty Start Date End Date Tri Perez PA-C [address] [place] [address] PCP - General Physician Cigarette Tester 09/19/23 documented as of this encounter
--- OUTSIDE RECORDS SUMMARY | 2024-12-28 17:07 | XMS_ITS | Clinical Summary ---
Author Organization [facility] Address [address] [place] [address] Care Team Providers Care Pattern Wheel Maker Name Role Phone Tri Perez PA-C Primary Care Provider + [phone] Source Comments PLEASE NOTE, if this patient [...] mouth daily (prescribed by [facility]) 024 Active omeprazole (PRILOSEC) [address] [facility]/pharmacy #[id number] [place], [place] [phone] 90 Each 0 Days Supply: 90Sig: TOME 1 C PSULA POR V A ORAL TODOS LOS D ASSource: 2 Outside SourcesAuthorized by: PETER GAMBLE 024 Active carvediloL (COREG) 25 mg tablet Take 1 Tablet by mouth 2 (two) times daily with a meal (Prescribed by [facility]) 024 Active tadalafiL (CIALIS) 20 mg tablet [facility] [address] [place] [address] 15 Each 4 Days Supply: 15Sig: TAKE 1 TABLET BY MOUTH ONCE DAILY NEEDED FOR SEXUAL ACTIVITY. TAKE APPROXIMATELY 30 MINUTES BEFORE SEXUAL ACTIVITY. DO NOT USE MORE THAN 1 DOSE PER 24 HOURSSource: Surescripts (Fill History, Ambulatory)Authorize d by: RAYMOND ELKINS 024 Active ENVARSUS XR 1 mg Tb24 Take 1 Tablet by mouth daily (Prescribed by [facility]) 024 Active ENVARSUS XR 0.75 mg Tb24 Take 2 Tablets by mouth daily (Prescribed by [facility]) 024 Active mycophenolate sodium 180 mg TbEC Take 3 Tablets by mouth 2 (two) times daily (Prescribed by [facility]) 024 Active blood pressure test kit-largeIndica tions:Essential hypertension SMBP Program - T-VIPS - Checking BP 3 times per week [...] transplant 09/20/23 10/29/24 at [facility] Stable, no medication changes Referred to urology due to ES 09/12/24 - [facility] Stable, no medication changes. 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--plan was to get [...] Description 12/24/2024 4:00 PM EST Office Visit [address] [phone] Nick Schilling PharmD Essential hypertension (Primary Dx); Class 1 obesity due to excess calories with serious comorbidity and body mass index (BMI) of 33.0 to 33.9 in adult; Medication management; Kidney transplant recipient 12/12/2024 Interim Notes [address] [phone] Jose Dorene [place] 11/23/2024 4:00 PM EST Office Visit [address] [phone] Nick Schilling PharmD Essential hypertension (Primary Dx); Class 1 obesity due to excess calories with serious comorbidity and body mass index (BMI) of 33.0 to 33.9 in adult; Medication management 10/08/2024 4:00 PM EST Office Visit [address] [phone] Nick Schilling PharmD Essential hypertension (Primary Dx); Class 2 severe obesity due to excess calories with serious comorbidity and body mass index (BMI) of 36.0 to 36.9 in adult ([facility]); Medication management 10/08/2024 Travel from [...] 2016 Fecal DNA 2016 Flexible Sigmoidoscopy 2016 [id number]-65 ( season) 2024 08/28/2024, 05/24/2023, 10/13/2021, Additional [...] Date/Time Associated Diagnosis Comments REFERRAL SCANNED DOCUMENT 12/25/2024 3:00 AM EST REFERRAL SCANNED DOCUMENT 10/29/2024 3:00 AM EST [...] Health Maintenance Results * REFERRAL SCANNED DOCUMENT (12/25/2024 3:00 AM EST) Only the most recent of2 resultswithin the time period is included. 12/25/2024 3:00 AM EST Tri Perez PA-C SCAN REFERRAL Final Result * OTHER ORDERS SCANNED DOCUMENT (10/12/2024 3:00 AM EST) Only the most recent of2 resultswithin the time period is included. 10/12/2024 3:00 AM EST Keith Miles MD SCAN OTHER ORDERS Final Resu lt * HGA1C W/EAG (09/14/2024 4:58 PM EST) HEMOGLOBIN A1C 5.6 <5.7 % of total Hgb [facility] Comment: For the purpose of screening for the presence of diabetes: <5.7% ? Consistent with the absence of diabetes 5.7-6.4% ?Consistent with increased risk for diabetes ?(prediabetes) > or =6.5% ??Consistent with diabetes This assay result is consistent with a decreased risk of diabetes. Currently, no consensus exists regarding use of hemoglobin A1c for diagnosis of diabetes in children. According to [place] Diabetes Association (ADA) guidelines, hemoglobin A1c <7.0% represents optimal control in non- diabetic patients. Different metrics may apply to specific patient populations. Standards of Medical Care in Diabetes(ADA). ?? EAG (MG/DL) 114 mg/dL [facility] EAG (MMOL/L) 6.3 mmol/L [facility] Blood Blood / Unknown 09/14/2024 4 :58 PM EST 09/14/2024 4:59 PM EST Narrative [facility] - 09/15/2024 4:11 AM EST FASTING:NO Tri Perez PA-C LAB - BLOOD DRAW Edited Resu lt - Final [employer] [address] [address], [employer] [facility] [address] [place] [address] * (ABNORMAL) LIPIDS W RFLX TO DIRECT LDL (09/14/2024 4:58 PM EST) CHOLESTEROL, TOTAL 167 <200 mg/dL [facility] HDL CHOLESTEROL 34(L) > OR = 40 mg/dL [facility] TRIGLYCERIDES 152(H) <150 mg/dL [facility] LDL-CHOLESTEROL 106(H) 99 mg/dL (calc) [facility] Comment: Reference range: <100 Desirable range <100 mg/dL for primary prevention; ?? <70 mg/dL for patients with CHD or diabetic patients with > or = 2 CHD risk factors. LDL-C is now calculated using the Nathaly calculation, which is a validated novel method providing better accuracy than the Friedewald equation in the estimation of LDL-C. [place] ERNANDEZ et al. LISSETTE. 2013;310(19): 6564-0013 (http://education.Cardi[employer]/faq/IHL285) CHOL/HDLC RATIO 4.9 <5.0 (calc) [facility] NON-HDL CHOLESTEROL 133(H) <130 mg/dL (calc) [facility] Comment: For patients with diabetes plus 1 major ASCVD risk factor, treating to a non-HDL-C goal of <100 mg/dL (LDL-C of <70 mg/dL) is considered a therapeutic option. Blood Blood / Unknown 09/14/2024 4 :58 PM EST 09/14/2024 4:59 PM EST Narrative [facility] - 09/15/2024 4:11 AM EST FASTING:NO us Tri Perez PA-C LAB - BLOOD DRAW Final Resul t [facility] [address] [address], [facility] [address] [address] * HISTORIC COLONOSCOPY (11/23/2022 3:00 AM EST) 11/23/2022 3:00 AM EST Tri Perez PA-C PROCEDURES Final Result * HIV-1 & HIV-2 ANTIBODIES (12/13/2018 8:48 AM EST) HIV 1 AND 2 ANTIBODY SCREEN NEGATIVE NEGATIVE Next [address] [facility] Comment: This assay is a 4th generation [...] AM EST 12/13/2018 9:11 AM EST Narrative [facility] - 12/13/2018 1:15 PM EST [employer], [place] [address] Commercial Painter - Nicole Fletcher MD PT ID [id number] ORD# [id number] Vince SPANN LAB - BLOOD DRAW Final Result Performing Organization Address City/State/[facility] Co de Phone Number [address] [address], from Last 3 Months or Most Recently Relevant to Health Maintenance Insurance [facility] Care Teams Pattern Wheel Maker Relationship Specialty Start Date End Date Tri Perez PA-C [address] [place] [address] PCP - General Internal Medicine 12/09/20
--- OUTSIDE RECORDS SUMMARY | 2024-12-28 17:07 | XMS_ITS | Encounter Summary ---
Author Organization [facility], Address [address] [place] [address] Phone Care Team Providers Care Child Adolescent Psychiatrist Name Role Phone Tri Perez PA-C Primary Care Provider +1- [phone] Encounter Details Date Type Department Care Team (Late st Contact Info) Description 11/25/2023 Documentation Only [facility], [address] [place] [address] Tor Alfred, DO [address] [place] [address] Social History Tobacco Use Types [...] on filedocumented in this encounter Care Teams Child Adolescent Psychiatrist Relationship Specialty Start Date End Date Tri Perez PA-C [address] [place] [address] PCP - General Physician Educational Program Director 09/19/23 documented as of this encounter
--- OUTSIDE RECORDS SUMMARY | 2024-12-28 17:07 | XMS_ITS | Clinical Summary ---
Author Organization [facility] Address [address] [place] [address] Care Team Providers Care Nuclear Weapons Mechanical Specialist Name Role Phone Unavailable Primary Care Provider Unavailabl e Surgical History Surgery Date Site/Laterality Comments CHOLECYSTECTOMY PROCEDURE: PA LAPAROSCOPY SURG CHOLECYSTECTOMY Medical History Medical History [...] Documents on File Type Date Recorded Patient Manager Icu Expl anation Health Care Decision (hx) 06/11/2020 AD CHANDRA DIRECTIVE Health Care Decision (hx) 06/11/2020 AD CHANDRA DIRECTIVE
--- OUTSIDE RECORDS SUMMARY | 2024-12-28 17:07 | XMS_ITS | Encounter Summary ---
Author Organization [facility] Address [address] [place] [address] Care Team Providers Care Gm/Svp Global Publisher Business Name Role Phone Tri Perez PA-C Primary Care Provider +1 [phone] Encounter Details Date Type Department Care Team (Late st Contact Info) Description 12/12/2024 Interim Notes [facility] [address] [place] [phone] Dorene Garcia [place] [address] [place], [place] [phone] Social History Tobacco Use Types Packs/Day Years [...] documented as of this encounter Care Teams Gm/Svp Global Publisher Business Relationship Specialty Start Date End Date Tri Perez PA-C [address] [place] [address] PCP - General Internal Medicine 12/09/20 documented as of this encounter
--- OUTSIDE RECORDS SUMMARY | 2024-12-28 17:07 | XMS_ITS | Encounter Summary ---
Author Organization [facility] Address [address] [place] [address] Care Team Providers Care Wallpaper Printer Helper Name Role Phone Tri Perez PA-C Primary Care Provider + [phone] Reason for Visit * Reason Comments Hypertension Encounter Details Date Type Department Care Team (Late st Contact Info) Description 12/24/2024 4:00 PM EST Office Visit [facility] [address] [place] [address] Nick Schilling, LeightonD [address] [place] [address] Essential hypertension (Primary Dx); Class 1 obesity [...] Pablo Escobar is a 54 year old, Korean-speaking White [place] male who presents today for a follow-up visit in Hypertension Clinic with Nick Schilling PharmD Marine Engine Mechanic: No campus recruiting intern needed for today's visit as provider speaks [...] managing HTN: Nephrology (Location: [facility], Dr Tor Moreira, last seen 10/29/24, follow-up: unclear): see problem list. ASCVD Patient has the following risk factors/co-morbidities for hypertension: Chronic Kidney Disease, Dyslipidemia, Family History, and Obesity Hx of stroke/IA/HF/CAD? No Family cardiac hx: mother - CABG, maternal uncle CABG. Tobacco Use: Former Smoker: Quit 13-14 years ago ([id number]) Tobacco Intervention:provided smoking cessation counseling Alcohol Use: Former drinker, quit ~2021 Pharmacotherapy: Current anti-hypertensive pharmacological regimen: Carvedilol 25 mg twice daily with meals (prescribed by [facility]) Nifedipine ER 60 mg daily (prescribed by [facility]) Patient reported medication NON-adherence: No missed doses [...] with meals (prescribed by [facility]) Nifedipine ER 60 mg daily (prescribed by [facility]) If BP hypertensive, next step: increase nifedipine [...] to not feel comfortable transferring medications to [facility] pharmacy, as he is taking mycophenolate and Envarsus to help prevent organ rejection, which are very important. It is very difficultto obtain Envarsus and I do not believe that [facility] pharmacy will be able to consistently obtain this medication without any issues. I recommend that patient continue with [facility] pharmacy. Patient also reports convenience with [facility] pharmacy. Polypharmacy Intervention/Adherence Aids Counseling: None [...] dosage, administration, storage, side effects, missing dose) Fish Net Stringer Complications of Uncontrolled Hypertension REFERENCES: Javi PK, [...] Adults: Executive Summary: A Report of the [place] College of Cardiology/[place]izen [place] Heart Association Task Force on Clinical Practice Guidelines. Hypertension. 2018 Mar;71(6):8665-5751. doi: 10.1161/HYP.9607539544967145. Epub 2016Sep 05. Erratum in: Hypertension. 2018 Mar;71(6):f829-o059. Erratum in: Hypertension. 2018 Jun;72(3):e33. PMID: [id number]. Leighton JoeD documented in this encounter Miscellaneous [...] u otros s??ntomas pertinentes. Axel Schilling PharmD, [facility] Clinical Pharmacist Oprima 2 para Espanol Pone [...] documented as of this encounter Care Teams Wallpaper Printer Helper Relationship Specialty Start Date End Date Tri Perez PA-C [facility] [place] [address] PCP - General Internal Medicine 12/09/20 documented as of this encounter
--- OUTSIDE RECORDS SUMMARY | 2024-12-28 17:07 | XMS_ITS | Clinical Summary ---
Author Organization [facility] Address [address] [facility] [address] [place] [address] Phone Care Team Providers Care Stacker And Sorter Operator Name Role Phone Tri Perez PA-C Primary Care Provider +1- [phone] Allergies Active Allergy Reactions Criticality Noted Date [...] [place] Care Teams Stacker And Sorter Operator Relationship Specialty Start Date End Date Tri Perez PA-C [address] [place] [address] PCP - General Physician Horticulture Worker 09/19/23
--- OUTSIDE RECORDS SUMMARY | 2024-12-28 17:07 | XMS_ITS | Encounter Summary ---
Author Organization [facility] Address [address] [place] [address] Care Team Providers Care Corporate Manager Name Role Phone Tri Perez PA-C Primary Care Provider +1 [phone] Encounter Details Date Type Department Care Team (Late st Contact Info) Description 04/02/2024 Patient Outreach [address] [address] Yana [place], Community Health Worker [address] [place] [address] Social History Tobacco Use Types Packs/Day Years [...] documented as of this encounter Care Teams Corporate Manager Relationship Specialty Start Date End Date Tri Perez PA-C [facility] [place] [address] PCP - General Internal Medicine 12/09/20 documented as of this encounter
--- OUTSIDE RECORDS SUMMARY | 2024-12-28 17:07 | XMS_ITS | Encounter Summary ---
Author Organization [facility] [place], Address [address] [address] Phone Care Team Providers Care Funeral Home Associate Name Role Phone Tri Perez PA-C Primary Care Provider +1- [phone] Reason for Visit * Reason Comments Med Refill Encounter Details Date Type Department Care Team (Late st Contact Info) Description 08/08/2024 Refill [facility], [address] [place] [address] Bi Alfonso MD [address] [facility] [place] [phone] Social History Tobacco Use Types Packs/Day Years [...] on filedocumented in this encounter Care Teams Funeral Home Associate Relationship Specialty Start Date End Date Tri Perez PA-C [address] [place] [address] PCP - General Physician Senior Java Software Developer 09/19/23 documented as of this encounter
--- OUTSIDE RECORDS SUMMARY | 2024-12-28 17:07 | XMS_ITS | Encounter Summary ---
Author Organization [facility] Address [address] [facility] [address] [facility] [address] [place] [address] Phone Care Team Providers Care Quiller Operator Name Role Phone Tri Perez PA-C Primary Care Provider +1- [phone] Reason for Visit * Reason Comments Med Refill Encounter Details Date Type Department Care Team ([facility] st Contact Info) Description 08/28/2022 Refill [facility] [address] [facility] [address] [facility] [address] [place] [phone] Sudheer Hartman MD [address] [facility] [address] [place] [phone] Social History Tobacco Use Types Packs/Day Years [...] on filedocumented in this encounter Care Teams Quiller Operator Relationship Specialty Start Date End Date Tri Perez PA-C [address] [place] [address] PCP - General Physician Insurance Account Representative 09/19/23 documented as of this encounter
--- OUTSIDE RECORDS SUMMARY | 2024-12-28 17:07 | XMS_ITS | Encounter Summary ---
Author Organization [facility] [place], Address [address] [address] Phone Care Team Providers Care Coater Helper Name Role Phone Tri Perez PA-C Primary Care Provider +1- [phone] Reason for Visit * Reason Comments Med Refill Encounter Details Date Type Department Care Team (Late st Contact Info) Description 07/05/2024 Refill [facility], [address] [place] [address] Bi Alfonso MD [address] [facility] [address] [place] [phone] Social History Tobacco Use Types Packs/Day Years [...] on filedocumented in this encounter Care Teams Coater Helper Relationship Specialty Start Date End Date Tri Perez PA-C [address] [place] [address] PCP - General Physician Field Crops Harvest Machine Operator 09/19/23 documented as of this encounter
== END 2024-12-28 16:00 | disposition home or self-care (01) ==
PROVIDERS: PCP Physician Assistant; Visit Provider Internal Medicine Nephrology
DX: Z94.0 Kidney transplant status (principal); I10 Essential (primary) hypertension
CPT/HCPCS: 99214

== ENCOUNTER → 2024-12-28 15:38 | Outpatient (BNVA) | payer OTHER, SELFPAY | PROVIDERS: PCP Physician Assistant; Visit Provider Internal Medicine Nephrology ==

== ENCOUNTER 2025-03-06 08:37 | Outpatient (REF) | payer MEDICARE, OTHER, SELFPAY ==
--- OUTSIDE RECORDS SUMMARY | 2025-03-06 08:53 | XMS_ITS | Encounter Summary ---
Author Organization [facility] [place], Address [address] [address] Phone Care Team Providers Care Head Of History Name Role Phone Tri Perez PA-C Primary Care Provider +1- [phone] Encounter Details Date Type Department Care Team (Late st Contact Info) Description 10/18/2023 Documentation Only [facility], [address] [place] [address] Bi Alfonso MD [address] [place] [phone] Social History Tobacco Use Types Packs/Day Years [...] on filedocumented in this encounter Care Teams Head Of History Relationship Specialty Start Date End Date Tri Perez PA-C [address] [place] [address] PCP - General Physician Commissioner Public Works 09/19/23 documented as of this encounter
--- OUTSIDE RECORDS SUMMARY | 2025-03-06 08:53 | XMS_ITS | Encounter Summary ---
Author Organization [facility] Address [address] [facility] [address] [facility] [address] [place] [address] Phone Care Team Providers Care Supervisor Purification Name Role Phone Tri Perez PA-C Primary Care Provider +1- [phone] Reason for Visit * Reason Comments Med Refill Encounter Details Date Type Department Care Team ([facility] st Contact Info) Description 08/28/2022 Refill [facility] [address] [facility] [address] [facility] [address] [place] [phone] Sudheer Hartman MD [address] [facility] [address] [place] [phone] Social History Tobacco Use Types Packs/Day Years [...] on filedocumented in this encounter Care Teams Supervisor Purification Relationship Specialty Start Date End Date Tri Perez PA-C [address] [place] [address] PCP - General Physician Database Administration Manager 09/19/23 documented as of this encounter
--- OUTSIDE RECORDS SUMMARY | 2025-03-06 08:53 | XMS_ITS | Encounter Summary ---
Author Organization [facility] [place], Address [address] [place] [address] Phone Care Team Providers Care Drain Tile Machine Operator Name Role Phone Tri Perez PA-C Primary Care Provider +1- [phone] Encounter Details Date Type Department Care Team (Late st Contact Info) Description 11/25/2023 Documentation Only [facility] [place], [address] [place] [address] Tor Alfred, DO [address] [place] [address] Social History Tobacco Use Types [...] on filedocumented in this encounter Care Teams Drain Tile Machine Operator Relationship Specialty Start Date End Date Tri Perez PA-C [address] [place] [address] PCP - General Physician Timber Harvester Operator 09/19/23 documented as of this encounter
--- OUTSIDE RECORDS SUMMARY | 2025-03-06 08:54 | XMS_ITS | Encounter Summary ---
Author Organization [facility] Address [address] [place] [address] Care Team Providers Care Terminal Supervisor Name Role Phone Tri Perez PA-C Primary Care Provider +1 [phone] Encounter Details Date Type Department Care Team (Late st Contact Info) Description 05/28/2024 Patient Outreach [address] [address] Yana [place], Community Health Worker [address] [place] [address] Social History Tobacco Use Types Packs/Day Years [...] documented as of this encounter Care Teams Terminal Supervisor Relationship Specialty Start Date End Date Tri Perez PA-C [facility] [place] [address] PCP - General Internal Medicine 12/09/20 documented as of this encounter
--- OUTSIDE RECORDS SUMMARY | 2025-03-06 08:54 | XMS_ITS | Clinical Summary ---
Author Organization [facility] Address [address] [facility] [address] [place] [address] Phone Care Team Providers Care Ivory Carver Name Role Phone Tri Perez PA-C Primary Care Provider +1- [phone] Allergies Active Allergy Reactions Criticality Noted Date [...] kidney disease stage 3 02/02/2021 02/03/2021 Immunizations Immunization Administration Dates Next Due Moderna SARS-COV-2 01/24/2021,12/27/2020 [...] Health Maintenance Due Date Last Done Comments Hepatitis B Vaccine (1 of 3 - 19+ 3-dose series) 03/29 Pneumococcal Vaccine: 50+ Years (1 of 2 - PCV) 990 Colorectal Cancer Screening: Annual FOBT 2020 Colorectal Cancer Screening: Colonoscopy 2020 Colorectal Cancer Screening: Sigmoidoscopy 2020 Influenza Vaccine (Season Ended) 2025 Insurance Medicare Medicaid [place] Medicare Medicaid [place] Care Teams Ivory Carver Relationship Specialty Start Date End Date Tri Perez PA-C [address] [place] [address] PCP - General Physician Dispatcher Relay 09/19/23
--- OUTSIDE RECORDS SUMMARY | 2025-03-06 08:54 | XMS_ITS | Encounter Summary ---
Author Organization [facility] [place], Address [address] [address] Phone Care Team Providers Care Stonecutter Assistant Name Role Phone Tri Perez PA-C Primary Care Provider +1- [phone] Reason for Visit * Reason Comments Med Refill Encounter Details Date Type Department Care Team (Late st Contact Info) Description 07/05/2024 Refill [facility], [address] [place] [address] Bi Alfonso MD [address] [facility] [place] [phone] Social History Tobacco Use Types Packs/Day Years [...] on filedocumented in this encounter Care Teams Stonecutter Assistant Relationship Specialty Start Date End Date Tri Perez PA-C [address] [place] [address] PCP - General Physician Hot Head Machine Operator 09/19/23 documented as of this encounter
--- OUTSIDE RECORDS SUMMARY | 2025-03-06 08:54 | XMS_ITS | Encounter Summary ---
Author Organization [facility], Address [address] [address] Phone Care Team Providers Care Environmental Services Director Name Role Phone Tri Perez PA-C Primary Care Provider +1- [phone] Reason for Visit * Reason Comments Med Refill Encounter Details Date Type Department Care Team (Late st Contact Info) Description 08/08/2024 Refill [facility], [address] [place] [address] Bi Alfonso MD [address] [place] [phone] Social History Tobacco Use Types Packs/Day Years [...] on filedocumented in this encounter Care Teams Environmental Services Director Relationship Specialty Start Date End Date Tri Perez PA-C [address] [place] [address] PCP - General Physician Broomcorn Seeder 09/19/23 documented as of this encounter
--- OUTSIDE RECORDS SUMMARY | 2025-03-06 08:54 | XMS_ITS | Clinical Summary ---
Author Organization [facility] Address [address] [place] [address] Phone Care Team Providers Care Production Aide Name Role Phone Tri Perez Primary Care Provider Allergies Active Allergy Reactions Criticality Noted Date Comments Penicillins Unknown 01/11/2025 UNSURE REACTION Medications No known medications Active Problems Problem Noted Date Diagnosed Date Fistula Overview (01/11/2025): LEFT SIDED DIALYSIS FISTULA Encounters Date Type Department Care Team Description 01/11/2025 9:05 AM EDT - 01/11/2025 11:23 AM EDT Emergency [facility] Emergency [address] [place] [address] Nonintractable headache, unspecified chronicity pattern, unspecified headache type (Primary Dx); Maxillary sinusitis, unspecified chronicity Discharge Disposition: Home or Self Care from Last 3 Months Surgical History Surgery Date Site/Laterality Comments CHOLECYSTECTOMY PROCEDURE: RI LAPAROSCOPY SURG CHOLECYSTECTOMY Medical History Medical History Date Comments Gallbladder attack DX:Gallbladde r attack Hypertension DX:Hypertension Blood in urine DX:Blood in urin e Fistula LEFT SIDED DIALY SIS FISTULA Family History Medical History Relation Name Comments [...] Value Date Recorded Sex Assigned at Male 01/11/2025 9:17 AM EDT Legal Sex Male 12:24 AM EST Gender Identity Male 01/11/2025 9:17 AM EDT Sexual Orientation Straight 01/11/2025 9: 17 AM EDT Obstetrics History Last Filed Vital Signs Vital Sign Reading Time Taken Comments Blood Pressure 106/57 01/11/2025 8:48 AM EDT Pulse 73 01/11/2025 8:48 AM EDT Temperature 36.5 ??C (97.7 ??F) 01/11/2025 8:48 AM ED T Respiratory Rate 16 01/11/2025 8:48 AM EDT Oxygen Saturation 98% 01/11/2025 8:48 AM EDT Inhaled Oxygen Concentration - - Weight 93.4 kg (206 lb) 01/11/2025 8:48 AM EDT Height 165.1 cm (5' 5 ) 01/11/2025 8:48 AM EDT Body Mass Index 34.28 01/11/2025 8:48 AM EDT Plan of Treatment Health Maintenance Due Date Last Done Comments Hepatitis A Vaccines (1 of 2 - Risk 2-dose series) 1990 Hepatitis B Vaccines (1 of 3 - 19+ 3-dose series) 1990 Pneumococcal Vaccine: 50+ Years (1 of 2 - PCV) 1990 Pneumococcal Vaccine: Pediatrics (0 to 5 Years) and At-Risk Patients (6 to 64 Years) (1 of 2 - PCV) 1990 Colorectal Cancer Screening: Colonoscopy 09/25/2022 Hepatitis C Screening 09/25/2022 Medicare Annual Wellness Visit 09/25/2022 Social Influencers of Health Screening 09/25/2022 Depression Screening 05/24/2024 05/24/2023 Hypertension/CHF/CAD Annual BMP Blood Test 01/11/2025 COVID-19 Vaccine (6 - Moderna risk season) 2025 08/28/2024, 05/24/2023, 10/13/2021, Additional history exists DTaP,Tdap,and Td Vaccines (2 - Td or Tdap) 11/28/2028 11/28/2018 Cholesterol Screening (Lipid Panel) 09/14/2029 09/14/2024, 12/13/2018 HIV Screening Completed 12/13/2018 Varicella Vaccines Aged Out 01/05/2023, 12/07/2022 No longer eligible based on patient's age to complete this topic Influenza Vaccine Completed 08/28/2024 Zoster Vaccines Completed 09/14/2024, 08/0 10/2022, 01/05/2023, Additional history exists HIB Vaccines Aged Out No longer eligi [...] age to complete this topic Meningococcal B Vaccine Aged Out No l onger eligible based on patient's age to complete this topic RSV Immunization Patients Under 20 months Aged Out No longer eligible based on patient's age to complete this topic Procedures Procedure Name Priority Date/Time Associated Diagnosis Comments CT HEAD WO CONTRAST STAT 01/11/2025 9 :55 AM EDT from Last 3 Months Results * CT Head wo Contrast (01/11/2025 9:55 AM EDT) Anatomical Region Laterality Modality Head and Neck Computed Tomogra phy 01/11/2025 10:0 4 AM EDT Impressions 01/11/2025 10:10 AM EDT No intracranial hemorrhage No intracranial mass. No suspicious area of abnormal brain attenuation. Extensive paranasal sinus disease greatest on the left. No definite bone destruction or expansion. ?? -------- FINAL REPORT -------- Dictated By: Anthony Rossi Dictated Date: 01/11/2025 10:04 ET Assigned Physician: Anthony Rossi Reviewed and Electronically Signed By: Anthony Rossi Signed Date: 01/11/2025 10:10 ET Workstation ID: [id number] Transcribed By: Self Edit Transcribed Date: 01/11/2025 10:04 ET Narrative 01/11/2025 10:10 AM EDT EXAMINATION: CT HEAD WITHOUT CONTRAST CLINICAL INFORMATION: Headache. ??Symptoms for 5 days. COMPARISON: None ?? TECHNIQUE: Multidetector CT. Examination of the head. Examination of the head without IV contrast. Reformatting in the coronal and sagittal planes. DLP: 1065 mGy-cm Dose optimization was performed including the use of low-dose iterative reconstruction technique with automatic exposure control based on patient size. Type of contrast: None Volume of IV contrast: None Volume of contrast discarded: 0 mL FINDINGS: Intracranial hemorrhage: No evidence of recent intracranial hemorrhage. Ventricles, cisterns and sulci: ??There is no midline shift. The ventricle cisterns and sulci appear within normal limits. Extra-axial mass or collections: No extra-axial mass or collection ?? Intra-axial mass: No mass demonstrated Acute infarct: No acute territorial infarct demonstrated. ?? White matter disease: No significant white matter disease demonstrated. ?? Gomes-white interface: No disruption of the gomes-white interface. ?? Paranasal sinuses: There is moderate opacification within the frontal sinuses including the drainage anteriorly. There is near complete opacification of most of the left ethmoid air cells. There is opacification of all of the visualized left maxillary sinus. There is no significant sphenoid disease. The mastoid air cells appear well pneumatized and aerated. ?? Osseous/Scalp: ??No focal bony lesion Procedure Note Anthony Rossi MD - 01/11/2025 EXAMINATION: CT HEAD WITHOUT CONTRAST CLINICAL INFORMATION: Headache. Symptoms for 5 days. COMPARISON: None TECHNIQUE: Multidetector CT. Examination of the head. Examination of the head without IV contrast. Reformatting in the coronal and sagittal planes. DLP: 1065 mGy-cm Dose optimization was performed including the use of low-dose iterativereconstruction technique with automatic exposure control based on patientsize. Type of contrast: None Volume of IV contrast: None Volume of contrast discarded: 0 mL FINDINGS: Intracranial hemorrhage: No evidence of recent intracranial hemorrhage. Ventricles, cisterns and sulci: There is no midline shift. The ventriclecisterns and sulci appear within normal limits. Extra-axial mass or collections: No extra-axial mass or collection Intra-axial mass: No mass demonstrated Acute infarct: No acute territorial infarct demonstrated. White matter disease: No significant white matter disease demonstrated. Gomes-white interface: No disruption of the gomes-white interface. Paranasal sinuses: There is moderate opacification within the frontalsinuses including the drainage anteriorly. There is near completeopacification of most of the left ethmoid air cells. There isopacification of all of the visualized left maxillary sinus. There is nosignificant sphenoid disease. The mastoid air cells appear wellpneumatized and aerated. Osseous/Scalp: No focal bony lesion IMPRESSION: No intracranial hemorrhage No intracranial mass. No suspicious area of abnormal brain attenuation. Extensive paranasal sinus disease greatest on the left. No definite bonedestruction or expansion. -------- FINAL REPORT -------- Dictated By: Anthony Rossi Dictated Date: 01/11/2025 10:04 ET Assigned Physician: Anthony Rossi Reviewed and Electronically Signed By: Anthony Rossi Signed Date: 01/11/2025 10:10 ET Workstation ID: [id number] Transcribed By: Self Edit Transcribed Date: 01/11/2025 10:04 [address] PROCEDURES Nicole l Result from Last 3 Months Insurance [facility] MEDICARE Advance Directives Documents on File Type Date Recorded Patient Promotion Specialist Expl anation Health Care Decision (hx) 06/11/2020 AD CHANDRA DIRECTIVE Health Care Decision (hx) 06/11/2020 AD CHANDRA DIRECTIVE Care Teams Production Aide Relationship Specialty Start Date End Date Tri ePrez PA [facility] [place] [address] PCP - General 01/11/25
--- OUTSIDE RECORDS SUMMARY | 2025-03-06 08:54 | XMS_ITS | Encounter Summary ---
Author Organization [facility] Address [address] [place] [address] Care Team Providers Care Associate Store Manager Name Role Phone Tri Perez PA-C Primary Care Provider [phone] Encounter Details Date Type Department Care Team (Late st Contact Info) Description 04/02/2024 Patient Outreach [address] [address] Yana Eagle, Community Health Worker [address] [place] [address] Social History Tobacco Use Types Packs/Day Years [...] documented as of this encounter Care Teams Associate Store Manager Relationship Specialty Start Date End Date Tri Perez PA-C [facility] [place] [address] PCP - General Internal Medicine 12/09/20 documented as of this encounter
--- OUTSIDE RECORDS SUMMARY | 2025-03-06 08:54 | XMS_ITS | Clinical Summary ---
Author Organization [facility] Address [address] [place] [address] Care Team Providers Care Printed Circuit Board Assembly Repairer Name Role Phone Tri Perez PA-C Primary Care Provider + [phone] Source Comments PLEASE NOTE, if this patient [...] mouth daily (prescribed by [facility]) 024 Active omeprazole (PRILOSEC) [address] capsule [facility]/pharmacy #[id number] [place], [place] [phone] 90 Each 0 Days Supply: 90Sig: TOME 1 C PSULA POR V A ORAL TODOS LOS D ASSource: 2 Outside SourcesAuthorized by: PETER GAMBLE 024 Active carvediloL (COREG) 25 mg tablet Take 1 Tablet by mouth 2 (two) times daily with a meal (Prescribed by [facility]) 024 Active tadalafiL (CIALIS) 20 mg tablet [facility] [address] [place] [address] 15 Each 4 Days Supply: 15Sig: TAKE 1 TABLET BY MOUTH ONCE DAILY NEEDED FOR SEXUAL ACTIVITY. TAKE APPROXIMATELY 30 MINUTES BEFORE SEXUAL ACTIVITY. DO NOT USE MORE THAN 1 DOSE PER 24 HOURSSource: Surescripts (Fill History, Ambulatory)Authorize d by: RAYMOND ELKINS 024 Active ENVARSUS XR 1 mg Tb24 Take 1 Tablet by mouth daily (Prescribed by [facility]) 024 Active ENVARSUS XR 0.75 mg Tb24 Take 2 Tablets by mouth daily (Prescribed by [facility]) 024 Active mycophenolate sodium 180 mg TbEC Take 3 Tablets by mouth 2 (two) times daily (Prescribed by [facility]) 024 Active blood pressure test kit-largeIndica tions:Essential hypertension SMBP Program - [employer] - Checking BP 3 times per week [...] DAILY DIRECTED 60 g 2 025 Active MISCELLANEOUS MEDICAL SUPPLY MISCIndications :Essential hypertension,Ki dney transplant recipient ([facility]) by miscellaneous route once daily XL Blood Pressure cuff for daily use. 1 Each 025 Active Active Problems Problem Noted Date Diagnosed Date Class 1 obesity due to exces s calories with serious comorbidity and body mass index (BMI) of 33.0 to 33.9 in adult 05/02/2024 Kidney transplant recipient ([facility]) 02/13/2024 Overview (12/25/2024): Completed living unrelated renal transplant 09/20/23 10/29/24 at [facility] Stable, no medication changes Referred to urology due to ES 09/12/24 - [facility] Stable, no medication changes. 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--plan was to get [...] (BMI) of 36.0 to 36.9 in adult ([facility]) 08/24/2018 11/23/2024 Encounters Date Type Department Care Team Description 02/05/2025 Interim Notes [address] [address] Duyen Cohn 01/02/2025 Interim Notes [address] [address] Nola Candelaria [place] 12/24/2024 4:00 PM EST Office Visit [address] [address] Nick Schilling, PharmD Essential hypertension (Primary Dx); Class 1 obesity due to excess calories with serious comorbidity and body mass index (BMI) of 33.0 to 33.9 in adult; Medication management; Kidney transplant recipient 12/12/2024 Interim Notes [address] [address] Dorene Garcia MA from Last 3 Months Immunizations Immunization Administration Dates Next Due MODERNA COVID-19 VACCINE [...] 2016 Fecal DNA 2016 Flexible Sigmoidoscopy 2016 Depression Monitoring 12/15/2024 09/14/2024 , 05/24/2023, 05/21/2020 [id number] (6 - Moderna ri sk 2023- season) 02/25/2025 08/28/2024, 05/24/2023, 10/13/2021, Additional history exists Diabetes Screening 09/14/2025 09/14/2024, 1 11/14/2023, 08/09/2023, Additional history exists Medicare Annual Wellness Visit 09/14/2025 1 11/14/2023, 09/14/2023, 11/28/2018 Tobacco Screening 09/14/2025 09/14/2024 Anxiety Screening 10/29/2025 10/29/2024 Lipid Screening 09/14/2027 09/14/2024, 07/24, 12/13/2018 Imm-DTaP/Tdap/Td (2 - Td or Tdap) 11/28/2028 019 Colonoscopy 11/23/2032 11/23/2022 Colorectal Cancer Screening 11/23/2032 HIV Screening Completed 12/13/2018 Imm-Influenza Discontinued 08/28/2024 Imm-Zoster, Recombinant Completed 09/14/2024, 05/24 Alcohol and Drug Screen Completed 11/23/19, 07/16/2024, 05/24/2023, Additional history exists Procedures Procedure Name Priority Date/Time Associated Diagnosis Comments IMAGING SCANNED DOCUMENT 01/11/2025 3:00 AM EDT REFERRAL SCANNED DOCUMENT 12/28/2024 3:00 AM EST REFERRAL SCANNED DOCUMENT 12/25/2024 3:00 AM EST HGA1C W/EAG Routine 09/14/2024 4:58 PM EST Obesity (BMI 30-39.9) LIPIDS W RFLX TO DIRECT LDL Routine 09/14/2024 4:58 PM EST Obesity (BMI 30-39.9) HISTORIC COLONOSCOPY 11/23/2022 3:00 AM EST ANTIBODY HIV-1&HIV-2 SINGLE RESULT Routine 12/13/2018 8:48 AM EST Encounter for screening for HIV from Last 3 Months or Most Recently Relevant to Health Maintenance Results * IMAGING SCANNED DOCUMENT (01/11/2025 3:00 AM EDT) 01/11/2025 3:00 AM EDT [employer] PA-C SCAN IMAGING Final Result * REFERRAL SCANNED DOCUMENT (12/28/2024 3:00 AM EST) Only the most recent of2 resultswithin the time period is included. 12/28/2024 3:00 AM EST [employer] PA-C SCAN REFERRAL Final Result * HGA1C W/EAG (09/14/2024 4:58 PM EST) HEMOGLOBIN A1C 5.6 <5.7 % of total Hgb [facility] Comment: For the purpose of screening for the presence of diabetes: <5.7% ? Consistent with the absence of diabetes 5.7-6.4% ?Consistent with increased risk for diabetes ?(prediabetes) > or =6.5% ??Consistent with diabetes This assay result is consistent with a decreased risk of diabetes. Currently, no consensus exists regarding use of hemoglobin A1c for diagnosis of diabetes in children. According to [place] Diabetes Association (ADA) guidelines, hemoglobin A1c <7.0% represents optimal control in non- diabetic patients. Different metrics may apply to specific patient populations. Standards of Medical Care in Diabetes(ADA). ?? EAG (MG/DL) 114 mg/dL [employer] EAG (MMOL/L) 6.3 mmol/L [id number] [facility] Blood Blood / Unknown 09/14/2024 4 :58 PM EST 09/14/2024 4:59 PM EST Narrative [employer] - 09/15/2024 4:11 AM EST FASTING:NO us Tri Perez PA-C LAB - BLOOD DRAW Edited Resu lt - Final [employer] [facility] [address] [address], [employer] [facility] [address] [place] [address] * (ABNORMAL) LIPIDS W RFLX TO DIRECT LDL (09/14/2024 4:58 PM EST) CHOLESTEROL, TOTAL 167 <200 mg/dL [employer] [facility] HDL CHOLESTEROL 34(L) > OR = 40 mg/dL [employer] [facility] TRIGLYCERIDES 152(H) <150 mg/dL [employer] [facility] LDL-CHOLESTEROL 106(H) 99 mg/dL (calc) [employer] [facility] Comment: Reference range: <100 Desirable range <100 mg/dL for primary prevention; ?? <70 mg/dL for patients with CHD or diabetic patients with > or = 2 CHD risk factors. LDL-C is now calculated using the Dallas-Allison calculation, which is a validated novel method providing better accuracy than the Friedewald equation in the estimation of LDL-C. Dallas SS et al. LISSETTE. 2013;310(19): 7147-6218 (http://education.Digital Vega/faq/LPQ119) CHOL/HDLC RATIO 4.9 <5.0 (calc) [employer] [facility] NON-HDL CHOLESTEROL 133(H) <130 mg/dL (calc) [facility] Comment: For patients with diabetes plus 1 major ASCVD risk factor, treating to a non-HDL-C goal of <100 mg/dL (LDL-C of <70 mg/dL) is considered a therapeutic option. Blood Blood / Unknown 09/14/2024 4 :58 PM EST 09/14/2024 4:59 PM EST Narrative [employer] - 09/15/2024 4:11 AM EST FASTING:NO Tri Perez PA-C LAB - BLOOD DRAW Final Resul t [facility] [address] [address], [employer] [facility] [address] [place] [address] * HISTORIC COLONOSCOPY (11/23/2022 3:00 AM EST) 11/23/2022 3:00 AM EST Tri Perez PA-C PROCEDURES Final Result * HIV-1 & HIV-2 ANTIBODIES (12/13/2018 8:48 AM EST) [facility] HIV 1 AND 2 ANTIBODY SCREEN NEGATIVE NEGATIVE [employer] [facility] Comment: This assay is a 4th [...] AM EST 12/13/2018 9:11 AM EST N[facility]ative [facility] - 12/13/2018 1:15 PM EST [employer], a member of [address] [address] [employer]rain Or Livestock Farm Manager - Nicole Fletcher MD PT ID [id number] ORD# [id number] Vince SPANN LAB - BLOOD DRAW Final Result [employer] [address], from Last 3 Months or Most Recently Relevant to Health Maintenance Insurance MEDICARE - [place] [facility] Care Teams Printed Circuit Board Assembly Repairer Relationship Specialty Start Date End Date Tri Perez PA-C [address] [place] [address] PCP - General Internal Medicine 12/09/20
--- OUTSIDE RECORDS SUMMARY | 2025-03-06 08:54 | XMS_ITS | Encounter Summary ---
Author Organization [facility] Address [address] [facility] [address] [place] [address] Phone Care Team Providers Care Fish Bait Picker Name Role Phone Tri Perez PA-C Primary Care Provider +1- [phone] Reason for Visit * Reason Comments Med Refill Encounter Details Date Type Department Care Team ([facility] st Contact Info) Description 03/13/2022 Refill [facility] [address] [facility] [address] [place] [phone] Sudheer Hartman MD [address] [facility] [address] [place] [phone] Social History Tobacco Use Types Packs/Day Years [...] on filedocumented in this encounter Care Teams Fish Bait Picker Relationship Specialty Start Date End Date Tri Perez PA-C [address] [place] [address] PCP - General Physician Work Counselor 11/27/23 documented as of this encounter
[2025-03-06 09:44] LABS: MANUAL DIFF FLAG NO
[2025-03-06 10:03] LABS: Basophils Percent Auto 0.3 % (0-2); Eosinophils Absolute Auto 0.2 X10*3/uL (0.0-0.4); Eosinophils Percent Auto 2.8 % (0-4); Hematocrit 50.7 % (42.0-52.0); Hemoglobin 15.9 g/dl (14.0-18.0); Imm Gran Abs Auto 0.01 X10*3/uL (0.00-0.03); Imm Gran Pct Auto 0.2 % (0.0-0.4); Lymphocytes Absolute Auto 2.2 X10*3/uL (1.2-4.9); Lymphocytes Percent Auto 34.6 % (20-40); Mean Corpuscular HGB Conc 31.4 g/dl (31.0-36.0); Mean Corpuscular Hemoglobin 26.1 pg (27.0-33.0); Mean Corpuscular Volume 83.3 fL (80.0-98.0); Mean Platelet Volume 9.8 fL (9.4-12.4); Monocytes Absolute Auto 0.6 X10*3/uL (0.1-1.2); Monocytes Percent Auto 8.5 % (2-11); Neutrophils Absolute Auto 3.5 x10*3/uL (2.0-8.3); Neutrophils Percent Auto 53.6 % (45-73); Platelet Count 163 X10*3/uL (160-400); Red Blood Count 6.09 X10*6/uL (4.60-5.80); Red Cell Distribution Width 14.5 % (11.0-16.0); White Blood Count 6.5 X10*3/uL (4.8-10.8)
[2025-03-06 10:19] LABS: Anion Gap 13 (12-20); Blood Urea Nitrogen 23 mg/dL (9-16); Calcium 10.3 mg/dL (8.4-10.2); Carbon Dioxide 29 mmol/L (22-29); Chloride 102 mmol/L (96-108); Estimated Glomerular Filt Rate 47; Magnesium 1.9 mg/dL (1.6-2.6); Phosphorus 2.5 mg/dL (2.7-4.5); Potassium 3.1 mmol/L (3.3-5.1); Sodium 141 mmol/L (135-145)
[2025-03-08 08:34] LABS: Tacrolimus Prograf 7.1 mcg/L
== END 2025-03-06 08:38 | disposition home or self-care (01) ==
LOC: HO.10HDL 08:37
PROVIDERS: Visit Provider Internal Medicine Nephrology
DX: I10 Essential (primary) hypertension (principal); Z94.0 Kidney transplant status
CPT/HCPCS: 36415; 80051; 80197; 82310; 82565; 83735; 84100; 84520; 85025

== ENCOUNTER 2025-03-08 15:20 | Outpatient (AMB) | payer MEDICARE, OTHER, SELFPAY ==
--- OUTSIDE RECORDS SUMMARY | 2025-03-08 15:22 | XMS_ITS | Clinical Summary ---
Author Organization [facility] Address [address] [facility] [address] [place] [address] Phone Care Team Providers Care Dock Supervisor Name Role Phone Tri Perez PA-C Primary Care Provider +1- [phone] Allergies Active Allergy Reactions Criticality Noted Date [...] Medicaid [place] Care Teams Dock Supervisor Relationship Specialty Start Date End Date Tri Perez PA-C [address] [place] [address] PCP - General Physician Strategic Communications Manager 09/19/23
--- OUTSIDE RECORDS SUMMARY | 2025-03-08 15:22 | XMS_ITS | Encounter Summary ---
Author Organization [facility], Address [address] [address] Phone Care Team Providers Care Roll Skinner Name Role Phone Tri Perez PA-C Primary Care Provider +1- [phone] Encounter Details Date Type Department Care Team (Late st Contact Info) Description 10/18/2023 Documentation Only [facility], [address] [place] [address] Bi Alfonso MD [address] [place] [phone] Social History Tobacco Use Types Packs/Day Years [...] on filedocumented in this encounter Care Teams Roll Skinner Relationship Specialty Start Date End Date Tri Perez PA-C [address] [place] [address] PCP - General Physician Transistor Tester 09/19/23 documented as of this encounter
--- OUTSIDE RECORDS SUMMARY | 2025-03-08 15:22 | XMS_ITS | Encounter Summary ---
Author Organization [facility], Address [address] [place] [address] Phone Care Team Providers Care Design Cell Engineer Name Role Phone Tri Perez PA-C Primary Care Provider +1- [phone] Encounter Details Date Type Department Care Team (Late st Contact Info) Description 11/25/2023 Documentation Only [facility], [address] [place] [address] Tor Alfred, DO [address] [place] [address] Social History Tobacco Use Types [...] on filedocumented in this encounter Care Teams Design Cell Engineer Relationship Specialty Start Date End Date Tri Perez PA-C [address] [place] [address] PCP - General Physician Shot Peen Operator 09/19/23 documented as of this encounter
--- OUTSIDE RECORDS SUMMARY | 2025-03-08 15:22 | XMS_ITS | Encounter Summary ---
Author Organization [facility], Address [address] [address] Phone Care Team Providers Care Cdl A Driver Name Role Phone Tri Perez PA-C Primary Care Provider +1- [phone] Reason for Visit * Reason Comments Med Refill Encounter Details Date Type Department Care Team (Late st Contact Info) Description 08/08/2024 Refill [facility], [address] [facility] [facility] [place] [address] Bi Alfonso MD [address] [facility] [place] [phone] Social History Tobacco Use Types Packs/Day Years [...] on filedocumented in this encounter Care Teams Cdl A Driver Relationship Specialty Start Date End Date Tri Perez PA-C [address] [place] [address] PCP - General Physician Cover Assembler 09/19/23 documented as of this encounter
--- OUTSIDE RECORDS SUMMARY | 2025-03-08 15:22 | XMS_ITS | Encounter Summary ---
Author Organization [facility] Address [address] [place] [address] Care Team Providers Care Enterprise Systems Manager Name Role Phone Tri Perez PA-C Primary Care Provider +1 [phone] Encounter Details Date Type Department Care Team (Late st Contact Info) Description 05/28/2024 Patient Outreach [address] [address] Yana Eagle, Community Health Worker [address] [place] [address] Social History Tobacco Use Types Packs/Day Years [...] documented as of this encounter Care Teams Enterprise Systems Manager Relationship Specialty Start Date End Date Tri Perez PA-C [facility] [place] [address] PCP - General Internal Medicine 12/09/20 documented as of this encounter
--- OUTSIDE RECORDS SUMMARY | 2025-03-08 15:22 | XMS_ITS | Encounter Summary ---
Author Organization [facility] Address [address] [facility] [address] [place] [address] Phone Care Team Providers Care Leathersmith Name Role Phone Tri Perez PA-C Primary Care Provider [phone]- [phone] Reason for Visit * Reason Comments Med Refill Encounter Details Date Type Department Care Team ([facility] st Contact Info) Description 08/28/2022 Refill [facility] [address] [facility] [address] [place] [phone] Sudheer Hartman MD [address] [facility] [address] [place] [phone] Social History Tobacco Use Types Packs/Day Years [...] on filedocumented in this encounter Care Teams Leathersmith Relationship Specialty Start Date End Date Tri Perez PA-C [address] [place] [address] PCP - General Physician Sales And Marketing Coordinator 09/19/23 documented as of this encounter
--- OUTSIDE RECORDS SUMMARY | 2025-03-08 15:23 | XMS_ITS | Clinical Summary ---
Author Organization [facility] Address [address] [place] [address] Phone Care Team Providers Care Deli Clerk Name Role Phone Tri Perez Primary Care Provider Allergies Active Allergy Reactions Criticality Noted Date Comments Penicillins Unknown 01/11/2025 UNSURE REACTION Medications No known medications Active Problems Problem Noted Date Diagnosed Date Fistula Overview (01/11/2025): LEFT SIDED DIALYSIS FISTULA Encounters Date Type Department Care Team Description 01/11/2025 9:05 AM EDT - 01/11/2025 11:23 AM EDT Emergency [facility] Emergency [address] [place] [address] Nonintractable headache, unspecified chronicity pattern, unspecified headache type (Primary Dx); Maxillary sinusitis, unspecified chronicity Discharge Disposition: Home or Self Care from Last 3 Months Surgical History Surgery Date Site/Laterality Comments CHOLECYSTECTOMY PROCEDURE: DC LAPAROSCOPY SURG CHOLECYSTECTOMY Medical History Medical History [...] Anthony Rossi Reviewed and Electronically Signed By: Anhtony Rossi Signed Date: 01/11/2025 10:10 ET Workstation ID: [id number] Transcribed By: Self Edit Transcribed Date: 01/11/2025 [...] Signed Date: 01/11/2025 10:10 ET Workstation ID: [id number] Transcribed By: Self Edit Transcribed Date: 01/11/2025 10:[address]ANN [address] PROCEDURES Nicole l Result from Last 3 Months Insurance [facility] MEDICARE Advance Directives Documents on File Type Date Recorded Patient Market Superintendent Expl anation Health Care Decision (hx) 06/11/2020 AD CHANDRA DIRECTIVE Health Care Decision (hx) 06/11/2020 AD CHANDRA DIRECTIVE Care Teams Deli Clerk Relationship Specialty Start Date End Date Tri Perez PA [facility] [place] [address] PCP - General 01/11/25
--- OUTSIDE RECORDS SUMMARY | 2025-03-08 15:23 | XMS_ITS | Encounter Summary ---
Author Organization [facility] Address [address] [facility] 200 [place] [address] Phone Care Team Providers Care Clerk Operator Name Role Phone Tri Perez PA-C Primary Care Provider +1- [phone] Reason for Visit * Reason Comments Med Refill Encounter Details Date Type Department Care Team ([facility] st Contact Info) Description 03/13/2022 Refill [facility] 100 [facility] 200 [place] [phone] Sudheer Hartman MD [address] [facility] [address] [place] [phone] Social History Tobacco Use Types Packs/Day Years [...] on filedocumented in this encounter Care Teams Clerk Operator Relationship Specialty Start Date End Date Tri Perez PA-C [address] [place] [address] PCP - General Physician Research Affiliate 11/27/23 documented as of this encounter
--- OUTSIDE RECORDS SUMMARY | 2025-03-08 15:23 | XMS_ITS | Clinical Summary ---
Author Organization [facility] Address [address] [place] [address] Care Team Providers Care Dispatcher Service Or Work Name Role Phone Tri Perez PA-C Primary Care Provider + [phone] Source Comments PLEASE NOTE, if this patient [...] Active omeprazole (PRILOSEC) [address] capsule [facility]/pharmacy #[id number] [place], [place] [phone] 90 Each 0 Days Supply: 90Sig: TOME 1 C PSULA POR V A ORAL TODOS LOS D ASSource: 2 Outside SourcesAuthorized by: PETER GAMBLE 024 Active carvediloL (COREG) 25 mg tablet Take 1 Tablet by mouth 2 (two) times daily with a meal (Prescribed by [facility]) 024 Active tadalafiL (CIALIS) 20 mg tablet [facility] [address] [place] [address] 15 Each 4 Days Supply: 15Sig: TAKE [...] test kit-largeIndica tions:Essential hypertension SMBP Program - Parallel Engines - Checking BP 3 times per week [...] SUPPLY MISCIndications :Essential hypertension,Ki dney transplant recipient ([facility]) by miscellaneous route once daily XL Blood Pressure cuff for daily use. 1 Each 025 Active Active Problems Problem Noted Date Diagnosed Date Class 1 obesity due to exces s calories with serious comorbidity and body mass index (BMI) of 33.0 to 33.9 in adult 05/02/2024 Kidney transplant recipient ([facility]) 02/13/2024 Overview (12/25/2024): Completed living unrelated renal transplant 09/20/23 10/29/24 at [facility] [...] 05/31/2023 Vitamin D deficiency 02/03/2021 Secondary hyperparathyroidism ([facility]) 02/04/20 21 Overweight 02/03/2021 Nonadherence to medical [...] pain 10/04/2019 Stage 3 chronic kidney disease ([facility]) 019 Overview (03/28/2019): 03/27/19 [facility]: 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--plan was to get [...] (BMI) of 36.0 to 36.9 in adult ([facility]) 08/24/2018 11/23/2024 Encounters Date Type Department Care Team Description 02/05/2025 Interim Notes [address] [address] Duyen Cohn 01/02/2025 Interim Notes [address] [address] Nola Candelaria [place] 12/24/2024 4:00 PM EST Office Visit [address] [address] Nick Schilling, PharmD Essential hypertension (Primary Dx); Class 1 obesity due to excess calories with serious comorbidity and body mass index (BMI) of 33.0 to 33.9 in adult; Medication management; Kidney transplant recipient 12/12/2024 Interim Notes [address] [address] Dorene Garcia MA from Last 3 Months [...] Depression Monitoring 12/15/2024 09/14/2024 , 05/24/2023, 05/21/2020 [id number] (6 - Moderna ri sk 2023- season) [...] 3:00 AM EDT) 01/11/2025 3:00 AM EDT [employer] PA-C SCAN IMAGING Final Result * REFERRAL SCANNED DOCUMENT (12/28/2024 3:00 AM EST) Only the most recent of2 resultswithin the time period is included. 12/28/2024 3:00 AM EST [employer] PA-C SCAN REFERRAL Final Result * HGA1C W/EAG (09/14/2024 4:58 PM EST) HEMOGLOBIN A1C 5.6 <5.7 % of total Hgb [facility] Comment: For the purpose of screening for the presence of diabetes: <5.7% ? Consistent with the absence of diabetes 5.7-6.4% ?Consistent with increased risk for diabetes ?(prediabetes) > or =6.5% ??Consistent with diabetes This assay result is consistent with a decreased risk of diabetes. Currently, no consensus exists regarding use of hemoglobin A1c for diagnosis of diabetes in children. According to [place] Diabetes Association (ADA) guidelines, hemoglobin A1c <7.0% represents optimal control in non- diabetic patients. Different metrics may apply to specific patient populations. Standards of Medical Care in Diabetes(ADA). ?? EAG (MG/DL) 114 mg/dL [employer] EAG (MMOL/L) 6.3 mmol/L [facility] Blood Blood / Unknown 09/14/2024 4 :58 PM EST 09/14/2024 4:59 PM EST Narrative [employer] - 09/15/2024 4:11 AM EST FASTING:NO us Tri Perez PA-C LAB - BLOOD DRAW Edited Resu lt - Final [employer] [facility] [address] [address], [employer] [facility] [address] [place] [address] * (ABNORMAL) LIPIDS W RFLX TO DIRECT LDL (09/14/2024 4:58 PM EST) CHOLESTEROL, TOTAL 167 <200 mg/dL [employer] HDL CHOLESTEROL 34(L) > OR = 40 mg/dL [employer] [facility] TRIGLYCERIDES 152(H) <150 mg/dL [facility] LDL-CHOLESTEROL 106(H) 99 mg/dL (calc) [facility] Comment: Reference range: <100 Desirable range <100 mg/dL for primary prevention; ?? <70 mg/dL for patients with CHD or diabetic patients with > or = 2 CHD risk factors. LDL-C is now calculated using the Dallas-Allison calculation, which is a validated novel method providing better accuracy than the Friedewald equation in the estimation of LDL-C. Dallas SS et al. LISSETTE. 2013;310(19): 4127-4079 (http://education.Text A Cab/faq/DMH754) CHOL/HDLC RATIO 4.9 <5.0 (calc) [facility] NON-HDL CHOLESTEROL 133(H) <130 mg/dL (calc) [facility] Comment: For patients with diabetes plus 1 major ASCVD risk factor, treating to a non-HDL-C goal of <100 mg/dL (LDL-C of <70 mg/dL) is considered a therapeutic option. Blood Blood / Unknown 09/14/2024 4 :58 PM EST 09/14/2024 4:59 PM EST Narrative [employer] - 09/15/2024 4:11 AM EST FASTING:NO Tri Perez PA-C LAB - BLOOD DRAW Final Resul t [facility] [address] [address], [facility] [address] [place] [address] * HISTORIC COLONOSCOPY (11/23/2022 3:00 AM EST) 11/23/2022 3:00 AM EST Tri Perez PA-C PROCEDURES Final Result * HIV-1 & HIV-2 ANTIBODIES (12/13/2018 8:48 AM EST) [facility] HIV 1 AND 2 ANTIBODY SCREEN NEGATIVE NEGATIVE [employer] [facility] Comment: This assay is a 4th [...] AM EST 12/13/2018 9:11 AM EST Narrative [facility] - 12/13/2018 1:15 PM EST [employer], a member of [address] [address] Pump House Operator - Nicole Fletcher MD PT ID [id number] ORD# [id number] Vince SPANN LAB - BLOOD DRAW Final Result [employer] [address], from Last 3 Months or Most Recently Relevant to Health Maintenance Insurance MEDICARE - [place] [facility] Care Teams Dispatcher Service Or Work Relationship Specialty Start Date End Date Tri Perez PA-C [address] [place] [address] PCP - General Internal Medicine 12/09/20
--- OUTSIDE RECORDS SUMMARY | 2025-03-08 15:23 | XMS_ITS | Encounter Summary ---
Author Organization [facility] Address [address] [place] [address] Care Team Providers Care Emd Teacher Name Role Phone Tri Perez PA-C Primary Care Provider +1 [phone] Encounter Details Date Type Department Care Team (Late st Contact Info) Description 04/02/2024 Patient Outreach [address] [address] Yana Eagle, Community Health Worker [address] [place] [address] Social History Tobacco Use Types Packs/Day Years [...] documented as of this encounter Care Teams Emd Teacher Relationship Specialty Start Date End Date Tri Perez PA-C [facility] [place] [address] PCP - General Internal Medicine 12/09/20 documented as of this encounter
--- OUTSIDE RECORDS SUMMARY | 2025-03-08 15:23 | XMS_ITS | Encounter Summary ---
Author Organization [facility], Address [address] [address] Phone Care Team Providers Care Irrigation Service Technician Name Role Phone Tri Perez PA-C Primary Care Provider +1- [phone] Reason for Visit * Reason Comments Med Refill Encounter Details Date Type Department Care Team (Late st Contact Info) Description 07/05/2024 Refill [facility], [address] [place] [address] Bi Alfonso MD [address] [facility] [place] [phone] Social History Tobacco Use Types Packs/Day Years [...] on filedocumented in this encounter Care Teams Irrigation Service Technician Relationship Specialty Start Date End Date Tri Perez PA-C [address] [place] [address] PCP - General Physician Chief Nursing Officer 09/19/23 documented as of this encounter
--- NOTE | 2025-03-08 15:48 | HO.NEPHOV ---
Vital Signs 03/08/25 15:50 Height 5 ft 5 in Weight 205 lb BMI 34.1 BP 120/70 Blood Pressure Location Rt brachial Position Sitting Pulse 79 Pulse Source Pulse Oximeter Pulse Oximetry (%) 96 Oxygen Delivery Method Room Air Intake Visit Reasons: 2 MO FU-[facility] Silverlight Developer Required: No Accompanied by: Self / Same As Patient Allergies Penicillins Allergy (Mild, Verified 03/08/25 15:50) Unknown HPI Comments Details: Pablo was in follow-up of his renal transplant. He was in [facility] recently for a few weeks. 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 He underwent living unrelated renal transplant on 09/20/2023. He had stent removed on 10/10/2023. He had a panel reactive antibody of 25. Induction was done with Camp[facility]. He had no delayed graft function. He required no dialysis treatment post transplant. CMV status of the donor was positive and recipient was positive as well. EBV status of the donor was negative and recipient was positive. Hepatitis-B core antibody for donor and recipient was negative. Hepatitis C virus antibody was negative for donor and recipient. Bk virus PCR was negative as of 12/21/2023. His immunosuppression included Envarsus and Mycophenolate. He did not have any rejection episodes post transplant. He had some fluctuant blood pressure in the last few months which has been better. He had transaminitis which is resolved. His donor specific antibodies were negative as of 12/13/2023. His immunosuppression included Envarsus 2.5 mg daily and mycophenolate 540 mg twice daily. His Prophylaxis Therapy included (Drug/Discontinuation Date) bactrim d/c ed 03/21/24, mycelex d/c ed 12/22/23 & valcyte d/c ed 03/16/24. He had no readmissions the 1st 3 months. Currently he feels well. He is compliant with medications. [facility] Medical History (Updated 03/08/25 @ 16:04 by Harish Lentz MD) History of hepatitis C History of end stage renal disease Surgical History History of kidney transplant Review of Systems Const All systems reviewed & are unremarkable except as noted in HPI and below Physical Exam Vital Signs: Last Vital Signs Pulse 79 03/08/25 15:50 BP 120/70 05/16/25 15:50 Pulse Ox 96 03/08/25 15:50 Oxygen Delivery Method Room Air 03/08/25 15:50 BMI result Body Mass Index 34.1 Const General: comfortable and no acute distress Orientation/consciousness: patient oriented x3 HEENT Head: Yes normocephalic Mouth: Normal oral and palatal mucosa present Eyes EOM: EOMs intact bilaterally Neck Neck: Yes supple Resp Auscultation: clear to auscultation bilaterally Cardio Jugular venous distension: no JVD Rate: regular rate GI Palpation (GI): Soft to palpation Auscultation: normal bowel sounds General: Yes no CVA tenderness Back/Spine/Pelvis Back: no CVA tenderness Skin General skin exam: no rashes or lesions noted Neuro General: patient oriented x3 and moves all extremities Extrem General: Yes no pedal edema Results Reviewed Nephrology Results: Hgb 15.9 g/dl (14.0-18.0) 03/06/25 WBC 6.5 X10*3/uL (4.8-10.8) 03/06/25 Plt Count 163 X10*3/uL (160-400) 03/06/25 Sodium 141 mmol/L (135-145) 03/06/25 Potassium 3.1 mmol/L (3.3-5.1) L 03/06/25 Chloride 102 mmol/L (96-108) 03/06/25 Carbon Dioxide 29 mmol/L (22-29) 03/06/25 BUN 23 mg/dL (9-16) H 03/06/25 Creatinine 1.55 mg/dL (0.5-1.4) H 03/06/25 Calcium 10.3 mg/dL (8.4-10.2) H 03/06/25 Phosphorus 2.5 mg/dL (2.7-4.5) L 03/06/25 PTH Intact 120.6 pg/mL (8.7-77.1) H 08/15/24 Assessment & Plan Assessment & Plan (1) History of kidney transplant: Code(s): Z94.0 - Kidney transplant status Category: Surgical (2) Hypertension: Code(s): I10 - Essential (primary) hypertension Category: Medical Qualifiers: Hypertension type: primary hypertension Qualified Code(s): I10 - Essential (primary) hypertension (3) Hypokalemia: Code(s): E87.6 - Hypokalemia Category: Medical Plan 1. Allograft function: excellent function; serum creatinine stable 2. Immunosuppression: tolerating; monitoring levels; adjust accordingly; Prophylaxis Therapy included (Drug/Discontinuation Date) bactrim d/c ed 03/21/24, mycelex d/c ed 12/22/23 & valcyte d/c ed 03/16/24. Reduced tacrolimus to 2 mg daily 3. BP and volume status: Vol status optimal. BP at goal 4. Metabolic parameters: stable; follow up labs 5. Hematologic parameters: counts excellent 6. Other: needs to increase activity; weight loss emphasized 7. Hypokalemia- K replaced Orders: Orders Creatinine 2 Months E87.6 - Hypokalemia, I10 - Essential (primary) hypertension, Z94.0 - Kidney transplant status Calcium 2 Months E87.6 - Hypokalemia, I10 - Essential (primary) hypertension, Z94.0 - Kidney transplant status Complete Blood Count Auto Diff 2 Months E87.6 - Hypokalemia, I10 - Essential (primary) hypertension, Z94.0 - Kidney transplant status Blood Urea Nitrogen 2 Months E87.6 - Hypokalemia, I10 - Essential (primary) hypertension, Z94.0 - Kidney transplant status Electrolytes 2 Months E87.6 - Hypokalemia, I10 - Essential (primary) hypertension, Z94.0 - Kidney transplant status Tacrolimus Prograf 2 Months E87.6 - Hypokalemia, I10 - Essential (primary) hypertension, Z94.0 - Kidney transplant status Coding Level of Care Code Est Pt Level 4 (47868) Diagnoses History of kidney transplant Z94.0 Primary hypertension I10 Hypertension type: primary hypertension Hypokalemia E87.6
[2025-03-08 15:50] VITALS: BP 120/70; PULSE 79; O2SAT 96; BMI 34.1
== END 2025-03-08 16:10 | disposition home or self-care (01) ==
LOC: HO.HKA 15:20
PROVIDERS: PCP Physician Assistant; Visit Provider Internal Medicine Nephrology
DX: Z94.0 Kidney transplant status (principal); I10 Essential (primary) hypertension; E87.6 Hypokalemia
CPT/HCPCS: 99214

== ENCOUNTER → 2025-03-08 15:20 | Outpatient (BNVA) | payer MEDICARE, OTHER, SELFPAY | PROVIDERS: PCP Physician Assistant; Visit Provider Internal Medicine Nephrology | DX: I10 Essential (primary) hypertension (principal); E87.6 Hypokalemia; Z94.0 Kidney transplant status; Z86.19 Personal history of other infectious and parasitic diseases; Z79.899 Other long term (current) drug therapy | CPT/HCPCS: 99212 ==

== ENCOUNTER 2025-04-03 08:01 | Outpatient (REF) | payer MEDICARE, OTHER, SELFPAY ==
--- OUTSIDE RECORDS SUMMARY | 2025-04-03 08:05 | XMS_ITS | Encounter Summary ---
Author Organization [facility], Address [address] [address] Phone Care Team Providers Care Bonus Clerk Name Role Phone Tri Perez PA-C Primary Care Provider +1- [phone] Encounter Details Date Type Department Care Team (Late st Contact Info) Description 10/18/2023 Documentation Only [facility], [address] [place] [address] Bi Alfonso MD [address] [place] [phone] Social History Tobacco Use Types Packs/Day Years [...] on filedocumented in this encounter Care Teams Bonus Clerk Relationship Specialty Start Date End Date Tri Perez PA-C [address] [place] [address] PCP - General Physician Retail Marketing Executive 09/19/23 documented as of this encounter
[2025-04-03 09:58] LABS: MANUAL DIFF FLAG NO
[2025-04-03 10:32] LABS: Anion Gap 10 (12-20); Blood Urea Nitrogen 27 mg/dL (9-16); Carbon Dioxide 28 mmol/L (22-29); Chloride 103 mmol/L (96-108); Estimated Glomerular Filt Rate 51; Potassium 3.3 mmol/L (3.3-5.1); Sodium 138 mmol/L (135-145)
[2025-04-03 10:40] LABS: Basophils Percent Auto 0.3 % (0-2); Eosinophils Absolute Auto 0.1 X10*3/uL (0.0-0.4); Eosinophils Percent Auto 1.9 % (0-4); Hematocrit 50.2 % (42.0-52.0); Hemoglobin 15.5 g/dl (14.0-18.0); Imm Gran Abs Auto 0.02 X10*3/uL (0.00-0.03); Imm Gran Pct Auto 0.3 % (0.0-0.4); Lymphocytes Absolute Auto 2.2 X10*3/uL (1.2-4.9); Lymphocytes Percent Auto 33.2 % (20-40); Mean Corpuscular HGB Conc 30.9 g/dl (31.0-36.0); Mean Corpuscular Volume 84.2 fL (80.0-98.0); Mean Platelet Volume 9.7 fL (9.4-12.4); Monocytes Absolute Auto 0.6 X10*3/uL (0.1-1.2); Monocytes Percent Auto 8.8 % (2-11); Neutrophils Absolute Auto 3.7 x10*3/uL (2.0-8.3); Neutrophils Percent Auto 55.5 % (45-73); Platelet Count 192 X10*3/uL (160-400); Red Blood Count 5.96 X10*6/uL (4.60-5.80); Red Cell Distribution Width 14.1 % (11.0-16.0); White Blood Count 6.7 X10*3/uL (4.8-10.8)
[2025-04-04 14:43] LABS: Tacrolimus Prograf 5.4 mcg/L
== END 2025-04-03 08:02 | disposition home or self-care (01) ==
LOC: HO.10HDL 08:01
PROVIDERS: Visit Provider Internal Medicine Nephrology
DX: Z94.0 Kidney transplant status (principal); I10 Essential (primary) hypertension; E87.6 Hypokalemia
CPT/HCPCS: 36415; 80051; 80197; 82310; 82565; 84520; 85025

== ENCOUNTER 2025-05-06 08:07 | Outpatient (REF) | payer MEDICARE, OTHER, SELFPAY ==
--- OUTSIDE RECORDS SUMMARY | 2025-05-01 15:00 | XMS_ITS | Encounter Summary ---
Author Organization [facility] Address [address] [place] [address] Care Team Providers Care Brim Setter Name Role Phone Tri Perez PA-C Primary Care Provider + [phone] Reason for Visit * Reason Comments Back Pain Since Tuesday was wor zoraida at home and bent down for a vacuum and started pain. Pain on right side. Encounter Details Date Type Department Care Team (Late st Contact Info) Description 05/01/2025 3:00 PM EDT Office Visit [facility] [address] [place] [id number] Pool Jackson NP [address] [place] [address] Faraz Santos [address] [place] [address] Social History Tobacco Use Types Packs/Day Years Used Date Smoking Tobacco: Former Smokeless Tobacco: Never Tobacco Cessation:Counseling Given: Not Answered Comments:not smoking for 4 years Alcohol Use Standard Drinks/Week Comments Yes 0 (1 standard drink = 0.6 oz pur e alcohol) occ Social Connections Answer Date Recorded How often do you feel lonely or isolated from th ose around you? 1 06/01/2024 Financial Resource Strain Answer Date R ecorded Hard to pay for: Food 1 06/01/2024 Stress Answer Date Recorded Do you feel these kinds of stress these days? 1 06/01/2024 Physical Activity Answer Date Recorded Physical Activity 0 06/17/2019 Food Insecurity Answer Date Recorded Hard to pay for: Food 1 06/01/2024 Transportation Needs Answer Date Record ed Hard to pay for: Transportation 1 06/01/2024 Housing Stability Answer Date Recorded Hard to pay for: Rent/Mortgage payment 1 06/01/2024 Safety and Environment Answer Date Benjy rded Safety 0 06/17/2019 Utilities Answer Date Recorded Hard to pay for: Utilities 1 06/01 Employment Answer Date Recorded Stress 0 08/17/2023 [...] Sign Reading Time Taken Comments Blood Pressure 129/83 05/01/2025 2:39 PM EDT Pulse 85 05/01/2025 2:39 PM EDT Temperature - - Respiratory Rate 22 05/01/2025 2:39 PM EDT Oxygen Saturation 95% 05/01/2025 2:39 PM EDT Inhaled Oxygen Concentration - - Weight 98 kg (216 lb) 05/01/2025 2:39 PM EDT Height - - Body Mass Index 35.94 12/24/2024 3:51 PM EST documented in this encounter Progress Notes * Pool Jackson, KEEGAN - 05/01/2025 2:56 PM EDT SUBJECTIVE Interpreting services by Faraz Santos (Mauritian) interpreted for today's visit. HPI: Pablo Escobar is a 55 year old male who presents to clinic today for right hip pain since Tuesday. Patient reports he was cleaning with his father this past weekend and had lifted something heavy and this started all the pain and discomfort. Patient describes pain as aching senation in lower back with right side being worse. He reports that the pain as worse when sitting still or bending over and is slightly relieved when he is walking. Patient reports pain became unbearable and he went to [facility] yesterday and was prescribed flexeril 10mg and volteren gel. He reports fleexeriol was making him to tired and insurance did not cover this. He reports taking only tylenol for pain mangemnt and purchased over the counter pain patches with minimal relief. Past Medical History: Diagnosis Date ??? Chronic right-sided low back pain with right-sided sciatica 06/16/2016 ??? Class 2 severe obesity due to excess calories with serious comorbidity and body mass index (BMI) of 38.0 to 38.9 in adult ([facility]) 08/24/2018 ??? Essential hypertension 06/15/2016 ??? Obstructive sleep apnea syndrome 03/07/2017 Cpap Current Outpatient Medications Medication Sig Dispense Refill ??? capsaicin 0.025 % cream Apply topically 3 (three) times daily. 60 g 1 ??? cyclobenzaprine (FLEXERIL) 5 mg tablet Take 1 Tablet by mouth 2 (two) times daily as needed formuscle spasms. 20 Tablet 0 ??? selenium sulfide (SELSUN BLUE) 1 % topical suspension Apply topically once daily as needed for other reason (Psoriasis). 240 mL 1 ??? MISCELLANEOUS MEDICAL SUPPLY [facility] by miscellaneous route once daily XL Blood Pressure cuff for daily use. 1 Each 0 ??? clobetasoL (TEMOVATE) 0.05 % cream APPLY 2 GRAMS TOPICALLY 2 (TWO) TIMES DAILY DIRECTED 60 g2 ??? fluticasone (FLONASE) 50 mcg/actuation nasal spray USE 1 SPRAY INTRANASALLY 2 TIMES PER DAY FOR90 DAYS FOR PEDIATRICS >2 Y/O ??? potassium chloride 20 mEq TbER TOME ANGEL TABLETA POR V A ORAL TODOS LOS D ??? blood pressure test kit-large SMBP Program - [employer] - Checking BP 3 times per week 1 Kit0 ??? ENVARSUS XR 0.75 mg Tb24 Take 2 Tablets by mouth daily (Prescribed by [facility]) ??? ENVARSUS XR 1 mg Tb24 Take 1 Tablet by mouth daily (Prescribed by [facility]) ??? mycophenolate sodium 180 mg TbEC Take 3 Tablets by mouth 2 (two) times daily (Prescribed by [facility]) ??? carvediloL (COREG) 25 mg tablet Take 1 Tablet by mouth 2 (two) times daily with a meal (Prescribed by [facility]) ??? NIFEdipine (ADALAT CC) 60 mg 24 hr tablet Take 1 tablet by mouth daily (prescribed by [facility]) ??? omeprazole (PRILOSEC) [address] worrell [facility]/pharmacy #[id number] [place] [address] 90 Each 0 Days Supply: 90Sig: TOME 1 C PSULA POR V A ORAL TODOS LOS D ASSource: 2 Outside SourcesAuthorized by: PETER GAMBLE ??? tadalafiL (CIALIS) 20 mg tablet [facility] [address] [place] [address] 15 Each 4 Days Supply: 15Sig: TAKE 1 TABLET BY MOUTH ONCE DAILY NEEDED FOR SEXUAL ACTIVITY. TAKE APPROXIMATELY 30 MINUTES BEFORE SEXUAL ACTIVITY. DO NOT USE MORE THAN 1 DOSE PER 24 HOURSSource: Surescripts (Fill History, Ambulatory)Authorized by: RAYMOND ELKINS ??? hydrocortisone (ANUSOL-HC) [address] 1 Suppository rectally 2 (two) times daily as needed for hemorrhoids 60 Suppository 2 ??? hydrocortisone 2.5 % cream Apply topically 2 (two) times daily 30 g 1 ??? docusate sodium (COLACE) 100 mg capsule Take 1 Capsule by mouth 2 (two) times daily 180 Capsule0 ??? acetaminophen (TYLENOL) 500 mg tablet Take 1 Tab by mouth every 6 (six) hours as needed for pain 30 Tab 1 ??? miscellaneous medical supply misc by miscellaneous route as needed (WHEN OUT OF BED) Compression stocking; knee high (20-30 mmHg) R60.0 Localized edema (lower extremities) 2 Each 0 No current facility-administered medications for this visit. Review of system negative except for HPI. OBJECTIVE Vitals reviewed Vitals: 05/01/25 1439 BP: 129/83 Pulse: 85 Resp: 22 SpO2: 95% Weight: 216 lb (98 kg) Estimated body mass index is 35.94 kg/m?? as calculated from the following: Height as of 12/24/24: 5' 5 (1.651 m). Weight as of this encounter: 216 lb (98 kg). The 10-year ASCVD risk score (Marni WALSH, et al., 2019) is: 6.9% Body mass index is 35.94 kg/m??. Depression screen: PHQ-9 Total Score (Auto Calculated) 0 at 05/24/2023 2:21 PM 11/24/2024 11:43 AM How many times in the past year have you had 4 or more drinks in a day? NONE How many times in the past year have you used a recreational drug or used a prescription medicationfor nonmedical reasons? NONE Physical Exam Constitutional: General: He is not in acute distress. Appearance: Normal appearance. He is not ill-appearing. He has obesity HENT: Head: Normocephalic and atraumatic. Cardiovascular: Rate and Rhythm: Normal rate and regular rhythm. Heart sounds: Normal heart sounds. No murmur heard. Pulmonary: Effort: Pulmonary effort is normal. No respiratory distress. Breath sounds: Normal breath sounds. Musculoskeletal: Lumbar back: Tenderness present. Comments: Unable to perform straight leg raise to do pain Skin: General: Skin is warm. Neurological: General: No focal deficit present. Mental Status: He is alert and oriented to person, place, and time. Psychiatric: Mood and Affect: Mood normal. ASSESSMENT & PLAN Pablo Escobar is a 55 year old male patient, who was seen today for an acute visit. M54.41,G89.29 Chronic right-sided low back pain with right-sided sciatica (primary encounter diagnosis) Plan : ??? CYCLOBENZAPRINE 5 MG TABLET - Take 1 Tablet by mouth 2 (two) times daily as needed for muscle spasms. ??? CAPSAICIN 0.025 % TOPICAL CREAM - Apply topically 3 (three) times daily. ??? Patient reports if pain persists for another week he will call clinic to request referral to physical therapy for low back pain. Medications were reviewed in detail with the patient, who acknowledges understanding and agrees with the plan of care as discussed. Encouraged to follow up with any questions or concerns. No follow-ups on file. documented in this encounter Plan of Treatment Not on file documented as of this encounter Visit Diagnoses Diagnosis Chronic right-sided low back pain with right-sided sciatica- Primary documented in this encounter Additional Health Concerns Assessment Noted Time PHQ-9 Depression Total Score: 0 05/24/20 23 2:21 PM PDT documented as of this encounter Care Teams Brim Setter Relationship Specialty Start Date End Date Tri Perez PA-C [address] [place] [id number] PCP - General Internal Medicine 12/09/20 documented as of this encounter
--- OUTSIDE RECORDS SUMMARY | 2025-05-06 08:10 | XMS_ITS | Clinical Summary ---
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 Surgical History Surgery Date Site/Laterality Comments CHOLECYSTECTOMY PROCEDURE: [place] LAPAROSCOPY SURG CHOLECYSTECTOMY Medical History Medical History [...] 73 01/11/2025 8:48 AM EDT Temperature 36.5 C (97.7 F) 01/11/2025 8:48 AM EDT Respiratory Rate 16 01/11/2025 8:48 AM EDT [...] Years (1 of 2 - PCV) 1990 Colorectal Cancer Screening: Colonoscopy 09/25/2022 Hepatitis C Screening 09/25/2022 Medicare Annual Wellness Visit 09/25/2022 Social Influencers of Health Screening 09/25/2022 Depression Screening 05/24/2024 05/24/2023 Hypertension/CHF/CAD Annual BMP Blood Test 01/11/2025 COVID-19 Vaccine (6 - Moderna risk season) 2025 08/28/2024, 05/24/2023, 10/13/2021, Additional history exists Influenza Vaccine (#1) 2025 08/28/2024 DTaP,Tdap,and Td Vaccines (2 - Td or Tdap) 11/28/2028 11/28/2018 Cholesterol Screening (Lipid Panel) 09/14/2029 09/14/2024, 12/13/2018 HIV Screening Completed 12/13/2018 Varicella Vaccines Aged Out 01/05/2023, 12/07/2022 No longer eligible based on patient's age to complete this topic Zoster Vaccines Completed 09/14/2024, 08/0 10/2022, 01/05/2023, [...] on patient's age to complete this topic Insurance [facility] MEDICARE Advance Directives Documents on File Type Date Recorded Patient Paster Hat Lining Expl anation Health Care Decision (hx) 06/11/2020 AD CHANDRA DIRECTIVE Health Care Decision (hx) 06/11/2020 AD CHANDRA DIRECTIVE Care Teams Group Managing Director Relationship Specialty Start Date End Date Tri Perez PA [facility] [place] [address] PCP - General 01/11/25
--- OUTSIDE RECORDS SUMMARY | 2025-05-06 08:10 | XMS_ITS | Encounter Summary ---
Author Organization [facility], Address [address] [address] Phone Care Team Providers Care Classification Counselor Name Role Phone Tri Perez PA-C Primary Care Provider [phone]- [phone] Encounter Details Date Type Department Care Team (Late st Contact Info) Description 10/18/2023 Documentation Only [facility], [address] [place] [address] Bi Alfonso MD [address] [place] [phone] Social History Tobacco Use Types Packs/Day Years [...] on filedocumented in this encounter Care Teams Classification Counselor Relationship Specialty Start Date End Date Tri Perez PA-C [address] [place] [address] PCP - General Physician Final Inspector 09/19/23 documented as of this encounter
[2025-05-06 09:55] LABS: Anion Gap 11 (12-20); Blood Urea Nitrogen 23 mg/dL (9-16); Carbon Dioxide 26 mmol/L (22-29); Chloride 106 mmol/L (96-108); Estimated Glomerular Filt Rate 47; Potassium 3.0 mmol/L (3.3-5.1); Sodium 140 mmol/L (135-145)
[2025-05-07 09:09] LABS: Tacrolimus Prograf 5.1 mcg/L
== END 2025-05-06 08:08 | disposition home or self-care (01) ==
LOC: HO.10HDL 08:07
PROVIDERS: Visit Provider Internal Medicine Nephrology
DX: Z94.0 Kidney transplant status (principal); Z79.899 Other long term (current) drug therapy
CPT/HCPCS: 36415; 80051; 80197; 82565; 84520

== ENCOUNTER 2025-05-08 15:21 | Outpatient (AMB) | payer MEDICARE, OTHER, SELFPAY ==
--- OUTSIDE RECORDS SUMMARY | 2025-05-08 15:37 | XMS_ITS | Encounter Summary ---
Author Organization [facility] Address [address] [place] [address] Care Team Providers Care Chicle Grinder Feeder Name Role Phone Tri Perez PA-C Primary Care Provider [phone] Encounter Details Date Type Department Care Team (Late st Contact Info) Description 05/28/2024 Patient Outreach [address] [address] Yana Eagle, Community Health Worker [address] [place] [address] Social History Tobacco Use Types Packs/Day Years [...] documented as of this encounter Care Teams Chicle Grinder Feeder Relationship Specialty Start Date End Date Tri Perez PA-C [address] [place] [id number] PCP - General Internal Medicine 12/09/20 documented as of this encounter
--- OUTSIDE RECORDS SUMMARY | 2025-05-08 15:37 | XMS_ITS | Encounter Summary ---
Author Organization [facility], Address [address] [address] Phone Care Team Providers Care Nailhead Operator Name Role Phone Tri Perez PA-C Primary Care Provider [phone]- [phone] Encounter Details Date Type Department Care Team (Late st Contact Info) Description 10/18/2023 Documentation Only [facility], [address] [place] [address] Bi Alfonso MD [address] [place] [phone] Social History Tobacco Use Types Packs/Day Years [...] on filedocumented in this encounter Care Teams Nailhead Operator Relationship Specialty Start Date End Date Tri Perez PA-C [address] [place] [address] PCP - General Physician Sales Receptionist 09/19/23 documented as of this encounter
--- OUTSIDE RECORDS SUMMARY | 2025-05-08 15:37 | XMS_ITS | Clinical Summary ---
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/11/2025): LEFT SIDED DIALYSIS FISTULA Surgical History Surgery Date Site/Laterality Comments CHOLECYSTECTOMY PROCEDURE: [place] LAPAROSCOPY SURG CHOLECYSTECTOMY Medical History Medical History [...] patient's age to complete this topic Insurance [facility] MEDICARE Advance Directives Documents on File Type Date Recorded Patient Genetic Counsellor Expl anation Health Care Decision (hx) 06/11/2020 AD CHANDRA DIRECTIVE Health Care Decision (hx) 06/11/2020 AD CHANDRA DIRECTIVE Care Teams Web Applications Architect Relationship Specialty Start Date End Date Tri Perez PA [facility] [place] [address] PCP - General 01/11/25
--- NOTE | 2025-05-08 15:47 | HO.NEPHOV_ITS ---
Vital Signs 05/08/25 15:49 Height 5 ft 5 in Weight 208 lb 8 oz BMI 34.7 BP 120/80 Blood Pressure Location Rt brachial Position Sitting Pulse 78 Pulse Source Pulse Oximeter Pulse Oximetry (%) 95 Oxygen Delivery Method Room Air Intake Visit Reasons: 2mon follow-up w/labs-Conf Information And Referral Director Required: No Accompanied by: Self / Same As Patient Allergies Penicillins Allergy (Mild, Verified 05/08/25 15:48) Unknown HPI Comments Details: Pablo was in follow-up of his renal transplant. 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 He underwent living unrelated renal transplant on 09/20/2023. He had stent removed on 10/10/2023. He had a panel reactive antibody of 25. Induction was done with Camp[facility]. He had no delayed graft function. He required no dialysis treatment post transplant. CMV status of the donor was positive and recipient was positive as well. EBV status of the donor was negative and recipient was positive. Hepatitis-B core antibody for donor and recipient was negative. Hepatitis C virus antibody was negative for donor and recipient. Bk virus PCR was negative as of 12/21/2023. His immunosuppression included Envarsus and Mycophenolate. He did not have any rejection episodes post transplant. He had some fluctuant blood pressure in the last few months which has been better. He had transaminitis which is resolved. His donor specific antibodies were negative as of 12/13/2023. His immunosuppression included Envarsus 2.5 mg daily and mycophenolate 540 mg twice daily. His Prophylaxis Therapy included (Drug/Discontinuation Date) bactrim d/c ed 03/21/24, mycelex d/c ed 12/22/23 & v alcyte d/c ed 03/16/24. He had no readmissions the 1st 3 months. Currently he feels well. He is compliant with medications. [facility] Medical History (Updated 03/08/25 @ 16:04 by Harish Lentz MD) History of hepatitis C History of end stage renal disease Surgical History History of kidney transplant Review of Systems Const All systems reviewed & are unremarkable except as noted in HPI and below Physical Exam Vital Signs: Last Vital Signs Pulse 78 05/08/25 15:49 BP 120/80 05/08/25 15:49 Pulse Ox 95 05/08/25 15:49 Oxygen Delivery Method Room Air 05/08/25 15:49 BMI result Body Mass Index 34.7 Const General: comfortable and no acute distress Orientation/consciousness: patient oriented x3 HEENT Head: Yes normocephalic Mouth: Normal oral and palatal mucosa present Eyes EOM: EOMs intact bilaterally Neck Neck: Yes supple Resp Auscultation: clear to auscultation bilaterally Cardio Jugular venous distension: no JVD Rate: regular rate GI Palpation (GI): Soft to palpation Auscultation: normal bowel sounds General: Yes no CVA tenderness Back/Spine/Pelvis Back: no CVA tenderness Skin General skin exam: no rashes or lesions noted Neuro General: patient oriented x3 and moves all extremities Extrem General: Yes no pedal edema Results Reviewed Nephrology Results: Hgb, (14.0-18.0) 15.5 g/dl 04/03/25 WBC, (4.8-10.8) 6.7 X10*3/uL 04/03/25 Plt Count, (160-400) 192 X10*3/uL 04/03/25 Sodium, (135-145) 140 mmol/L 05/06/25 Potassium, (3.3-5.1) 3.0 mmol/L L 05/06/25 Chloride, (96-108) 106 mmol/L 05/06/25 Carbon Dioxide, (22-29) 26 mmol/L 05/06/25 BUN, (9-16) 23 mg/dL H 05/06/25 Creatinine, (0.5-1.4) 1.56 mg/dL H 05/06/25 Calcium, (8.4-10.2) 10.0 mg/dL 04/03/25 Phosphorus, (2.7-4.5) 2.5 mg/dL L 03/06/25 Assessment & Plan Assessment & Plan (1) History of kidney transplant: Code(s): Z94.0 - Kidney transplant status Category: Surgical (2) Hypertension: Code(s): I10 - Essential (primary) hypertension Category: Medical Qualifiers: Hypertension type: primary hypertension Qualified Code(s): I10 - Essential (primary) hypertension Plan 1. Allograft function: excellent function; serum creatinine stable 2. Immunosuppression: tolerating; monitoring levels; adjust accordingly; Prophylaxis Therapy included (Drug/Discontinuation Date) bactrim d/c ed 03/21/24, mycelex d/c ed 12/22/23 & valcyte d/c ed 03/16/24. C/W tacrolimus 2 mg daily 3. BP and volume status: Vol status optimal. BP at goal 4. Metabolic parameters: stable; follow up labs 5. Hematologic parameters: counts excellent 6. Other: needs to increase activity; weight loss emphasized 7. Hypokalemia- K replaced Orders: Orders Tacrolimus Prograf 2 Months I10 - Essential (primary) hypertension, Z94.0 - Kidney transplant status Aspartate Amino Transferase 2 Months I10 - Essential (primary) hypertension, Z94.0 - Kidney transplant status Alanine Aminotransferase 2 Months I10 - Essential (primary) hypertension, Z94.0 - Kidney transplant status Calcium 2 Months I10 - Essential (primary) hypertension, Z94.0 - Kidney transplant status Hemoglobin A1c 2 Months I10 - Essential (primary) hypertension, Z94.0 - Kidney transplant status Protein Creatinine Ratio, Ur 2 Months I10 - Essential (primary) hypertension, Z94.0 - Kidney transplant status Complete Blood Count Auto Diff 2 Months I10 - Essential (primary) hypertension, Z94.0 - Kidney transplant status Electrolytes 2 Months I10 - Essential (primary) hypertension, Z94.0 - Kidney transplant status Blood Urea Nitrogen 2 Months I10 - Essential (primary) hypertension, Z94.0 - Kidney transplant status Creatinine 2 Months I10 - Essential (primary) hypertension, Z94.0 - Kidney transplant status Phosphorus 2 Months I10 - Essential (primary) hypertension, Z94.0 - Kidney transplant status Magnesium 2 Months I10 - Essential (primary) hypertension, Z94.0 - Kidney transplant status Lipid Panel 2 Months I10 - Essential (primary) hypertension, Z94.0 - Kidney transplant status Vitamin D 25-OH Total 2 Months I10 - Essential (primary) hypertension, Z94.0 - Kidney transplant status Parathyroid Hormone Intact 2 Months I10 - Essential (primary) hypertension, Z94.0 - Kidney transplant status Medications: Changed From potassium chloride ER 20 mEq PO DAILY 20 tabs 0RF To potassium chloride ER 10 mEq PO DAILY 30 tabs 0RF 30 days Coding Level of Care Code Est Pt Level 4 (34139) Diagnoses History of kidney transplant Z94.0 Primary hypertension I10 Hypertension type: primary hypertension
[2025-05-08 15:49] VITALS: BP 120/80; PULSE 78; O2SAT 95; BMI 34.7
== END 2025-05-08 16:08 | disposition home or self-care (01) ==
LOC: HO.HKA 15:21
PROVIDERS: PCP Physician Assistant; Visit Provider Internal Medicine Nephrology
DX: Z94.0 Kidney transplant status (principal); I10 Essential (primary) hypertension
CPT/HCPCS: 99214

== ENCOUNTER → 2025-05-08 15:21 | Outpatient (BNVA) | payer MEDICARE, OTHER, SELFPAY | PROVIDERS: PCP Physician Assistant; Visit Provider Internal Medicine Nephrology | DX: I10 Essential (primary) hypertension (principal); Z94.0 Kidney transplant status; Z79.60 Long term (current) use of unspecified immunomodulators and immunosuppressants; Z79.2 Long term (current) use of antibiotics; Z79.899 Other long term (current) drug therapy | CPT/HCPCS: 99212 ==

== ENCOUNTER 2025-07-08 08:08 | Outpatient (REF) | payer MEDICARE, OTHER, SELFPAY ==
--- OUTSIDE RECORDS SUMMARY | 2025-07-08 08:42 | XMS_ITS | Clinical Summary ---
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 Surgical History Surgery Date Site/Laterality Comments CHOLECYSTECTOMY PROCEDURE: [place] LAPAROSCOPY SURG CHOLECYSTECTOMY Medical History Medical History [...] Influencers of Health Screening 09/25/2022 Depression Screening 10/24/2024 Hypertension/CHF/CAD Annual BMP Blood Test 01/11/2025 COVID-19 [...] patient's age to complete this topic Insurance [facility] MEDICARE Advance Directives Documents on File Type Date Recorded Patient Petrology Teacher Expl anation Health Care Decision (hx) 06/11/2020 AD CHANDRA DIRECTIVE Health Care Decision (hx) 06/11/2020 AD CHANDRA DIRECTIVE Care Teams Warehouse Order Selector Relationship Specialty Start Date End Date Tri Perez PA [address] [place] [id number] PCP - General 01/11/25
--- OUTSIDE RECORDS SUMMARY | 2025-07-08 08:42 | XMS_ITS | Encounter Summary ---
Author Organization [facility] Address [address] [facility] [address] [place] [address] Phone Care Team Providers Care Recreation Center Director Name Role Phone Tri Perez PA-C Primary Care Provider +1- [phone] Reason for Visit * Reason Comments Med Refill Encounter Details Date Type Department Care Team ([facility] st Contact Info) Description 08/28/2022 Refill [facility] [address] [facility] [address] [place] [phone] Sudheer Hartman MD [address] [facility] [address] [place] [phone] Social History Tobacco Use Types Packs/Day Years [...] on filedocumented in this encounter Care Teams Recreation Center Director Relationship Specialty Start Date End Date Tri Perez PA-C [address] [place] [address] PCP - General Physician Maintenance Of Way Clerk 09/19/23 documented as of this encounter
--- OUTSIDE RECORDS SUMMARY | 2025-07-08 08:42 | XMS_ITS | Encounter Summary ---
Author Organization [facility] Address [address] [facility] [address] [place] [address] Phone Care Team Providers Care Cloud Systems Architect Name Role Phone Tri Perez PA-C Primary Care Provider +1- [phone] Reason for Visit * Reason Comments Med Refill Encounter Details Date Type Department Care Team ([facility] st Contact Info) Description 03/13/2022 Refill [facility] [address] [facility] 200 [place] [phone] Sudheer Hartman MD [address] [facility] [address] [place] [phone] Social History Tobacco Use Types Packs/Day Years [...] on filedocumented in this encounter Care Teams Cloud Systems Architect Relationship Specialty Start Date End Date Tri Perez PA-C [address] [place] [address] PCP - General Physician Clam Shucking Machine Tender 11/27/23 documented as of this encounter
--- OUTSIDE RECORDS SUMMARY | 2025-07-08 08:42 | XMS_ITS | Encounter Summary ---
Author Organization [facility], Address [address] [address] Phone Care Team Providers Care Appellate Conferee Name Role Phone Tri Perez PA-C Primary Care Provider +1- [phone] Reason for Visit * Reason Comments Med Refill Encounter Details Date Type Department Care Team (Late st Contact Info) Description 08/08/2024 Refill [facility], [address] [facility] [place] [address] Bi Alfonso MD [address] [facility] [place] [phone] Social History Tobacco Use Types Packs/Day Years [...] on filedocumented in this encounter Care Teams Appellate Conferee Relationship Specialty Start Date End Date Tri Perez PA-C [address] [place] [address] PCP - General Physician Through Freight Engineer 09/19/23 documented as of this encounter
--- OUTSIDE RECORDS SUMMARY | 2025-07-08 08:42 | XMS_ITS | Encounter Summary ---
Author Organization [facility] Address [address] [place] [address] Care Team Providers Care Supervisor [place]ing [place] Name Role Phone Tri Perez PA-C Primary Care Provider + [phone] Encounter Details Date Type Department Care Team (Late st Contact Info) Description 05/28/2024 Patient Outreach [address] [address] Yana Eagle, Community Health Worker [address] [place] [address] Social History Tobacco Use Types Packs/Day Years [...] as of this encounter Plan of Treatment Upcoming Encounters Date Type Department Care Team (Late st Contact Info) Description 07/22/2025 4:00 PM EDT Office Visit [facility] Main [address] [place] [address] Nick Schilling, LeightonD [address] [place] [address] documented as of this encounter Visit Diagnoses Not on filedocumented in this encounter Additional Health Concerns Assessment Noted Time PHQ-9 Depression Total Score: 0 05/24/20 23 2:21 PM PDT documented as of this encounter Care Teams Supervisor [place]ing [place] Relationship Specialty Start Date End Date Tri Perez PA-C [address] [place] [address] PCP - General Internal Medicine 12/09/20 documented as of this encounter
--- OUTSIDE RECORDS SUMMARY | 2025-07-08 08:42 | XMS_ITS | Encounter Summary ---
Author Organization [facility], Address [address] [place] [address] Phone Care Team Providers Care Optician Apprentice Dispensing Name Role Phone Tri Perez PA-C Primary Care Provider +1- [phone] Encounter Details Date Type Department Care Team (Late st Contact Info) Description 11/25/2023 Documentation Only [facility], [address] [place] [address] Tor Alfred, DO [address] [place] [address] Social History Tobacco Use Types [...] on filedocumented in this encounter Care Teams Optician Apprentice Dispensing Relationship Specialty Start Date End Date Tri Perez PA-C [address] [place] [address] PCP - General Physician Tire Finisher 09/19/23 documented as of this encounter
--- OUTSIDE RECORDS SUMMARY | 2025-07-08 08:42 | XMS_ITS | Clinical Summary ---
Author Organization [facility] Address [address] [place] [address] Care Team Providers Care Hot Saw Operator Name Role Phone Tri Perez PA-C Primary Care Provider + [phone] Source Comments PLEASE NOTE, if this patient [...] daily (prescribed by [facility]) 024 Active omeprazole (PRILOSEC) [address] capsule [facility]/pharmacy #[id number] [place], [place] [phone] 90 Each 0 Days Supply: 90Sig: TOME 1 C PSULA POR V A ORAL TODOS LOS D ASSource: 2 Outside SourcesAuthorized by: PETER GAMBLE 024 Active carvediloL (COREG) 25 mg tablet Take 1 Tablet by mouth 2 (two) times daily with a meal (Prescribed by [facility]) 024 Active tadalafiL (CIALIS) 20 mg tablet [facility] [address] [place] [address] 15 Each 4 Days Supply: 15Sig: TAKE 1 TABLET BY MOUTH ONCE DAILY NEEDED FOR SEXUAL ACTIVITY. TAKE APPROXIMATELY 30 MINUTES BEFORE SEXUAL ACTIVITY. DO NOT USE MORE THAN 1 DOSE PER 24 HOURSSource: Surescripts (Fill History, Ambulatory)Authorize d by: RAYMOND ELKINS 024 Active ENVARSUS XR 1 mg Tb24 Take 1 Tablet by mouth daily (Prescribed by [facility]) 024 Active ENVARSUS XR 0.75 mg Tb24 Take 2 Tablets by mouth daily (Prescribed by [facility]) 024 Active mycophenolate sodium 180 mg TbEC Take 3 Tablets by mouth 2 (two) times daily (Prescribed by [facility]) 024 Active blood pressure test kit-largeIndica tions:Essential hypertension SMBP Program - [employer] - Checking BP 3 times per week [...] SUPPLY MISCIndications :Essential hypertension,Ki dney transplant recipient ([facility]) by miscellaneous route once daily XL Blood Pressure cuff for daily use. 1 Each 025 Active cyclobenzaprine (FLEXERIL) 5 mg tabletIndicatio ns:Chronic right-sided low back pain with right-sided sciatica Take 1 Tablet by mouth 2 (two) times daily as needed for muscle spasms. 20 Tablet 025 Active capsaicin 0.025 % creamIndication s:Chronic right-sided low back pain with right-sided sciatica Apply topically 3 (three) times daily. 60 g 1 025 Active selenium sulfide (SELSUN BLUE) 1 % topical suspension Apply topically once daily as needed for other reason (Psoriasis). 240 mL 1 025 Active Active Problems Problem Noted Date Diagnosed Date Class 1 obesity due to exces s calories with serious comorbidity and body mass index (BMI) of 33.0 to 33.9 in adult 05/02/2024 Kidney transplant recipient ([facility]) 02/13/2024 Overview (12/25/2024): Completed living unrelated renal transplant 09/20/23 10/29/24 at [facility] Stable, no medication changes Referred to urology due to ES 09/12/24 - [facility] Stable, no medication changes. 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 Constipation 02/13/2024 Internal hemorrhoid 02/13/2024 Erectile dysfunction 05/31/2023 Bleeding hemorrhoids 05/31/2023 Vitamin D deficiency 02/03/2021 Secondary hyperparathyroidism ([facility]) Overweight 02/03/2021 Nonadherence to medical treatment 02/03/2021 [...] pain 10/04/2019 Stage 3 chronic kidney disease ([facility]) 0 03/28/2019 Overview (03/28/2019): 03/27/19 [facility]: 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--plan was to get [...] (BMI) of 36.0 to 36.9 in adult ([facility]) 08/24/2018 11/23/2024 Encounters Date Type Department Care Team Description 05/01/2025 3:00 PM EDT Office Visit [address] [address] Pool Jackson, Faraz Mcclellan from Last 3 Months Immunizations Immunization Administration Dates Next Due MODERNA COVID-19 VACCINE BIVALENT, BLUE CAP, 6M+ 05/24/2023 Moderna COVID-19 Vaccine, re d cap blue label, 12+ Primary Series 01/24/2021,12/27/2020 TDAP 11/28/2018 ZOSTER VACCINE, RECOMBINANT (SHINGRIX) ,05/24/2023 Family History Medical History Relation Name Comments [...] Pulse 85 05/01/2025 2:39 PM EDT Temperature 36.8 C (98.3 F) 09/14/2024 3:45 PM EST Respiratory Rate 22 05/01/2025 2:39 PM EDT Oxygen Saturation 95% 05/01/2025 2:39 PM EDT Inhaled Oxygen Concentration - - Weight 98 kg (216 lb) 05/01/2025 2:39 PM EDT Height 165.1 cm (5' 5 ) 12/24/2024 3:51 PM EST Body Mass Index 35.94 12/24/2024 3:51 PM EST Plan of Treatment Upcoming Encounters Date Type Department Care Team (Late st Contact Info) Description 07/22/2025 4:00 PM EDT Office Visit [facility] Main [address] [place] [phone] Nick Schilling, PharmD [address] [place] [address] Health Maintenance Due Date Last Done Comments Medicare Annual Wellness Visit 1989 Imm-Hepatitis B (1 of 3 - 19 + 3-dose series) 1990 Imm-Pneumococcal 50+ (1 of 2 - PCV) 1990 CT Colonography 2016 FIT/gFOBT 2016 Fecal DNA 2016 Flexible Sigmoidoscopy 2016 [id number] (6 - Moderna ri sk 2023- season) 06/24/2025 08/28/2024, 05/24/2023, 10/13/2021, Additional history exists Diabetes Screening 09/14/2025 09/14/2024, 1 11/14/2023, 08/09/2023, Additional history exists Tobacco Screening 09/14/2025 09/14/2024 Anxiety Screening 10/29/2025 10/29/2024 Lipid Screening 09/14/2027 09/14/2024, 07/24, 12/13/2018 Imm-DTaP/Tdap/Td (2 - Td or Tdap) 11/28/2028 019 Colonoscopy 11/23/2032 11/23/2022 Colorectal Cancer Screening 11/23/2032 HIV Screening Completed 12/13/2018 Imm-Influenza Discontinued 08/28/2024 Imm-Zoster, Recombinant Completed 09/14/2024, 05/24 Depression Annual Screen Completed 025, 02/13/2024, 06/15/2016 Alcohol and Drug Screen Completed 11/23/19 25, 07/16/2024, 05/24/2023, Additional history exists Procedures Procedure Name Priority Date/Time Associated Diagnosis Comments REFERRAL SCANNED DOCUMENT 05/08/2025 3:00 AM EDT HGA1C W/EAG Routine 09/14/2024 4:58 PM EST Obesity (BMI 30-39.9) LIPIDS W RFLX TO DIRECT LDL Routine 09/14/2024 4:58 PM EST Obesity (BMI 30-39.9) HISTORIC COLONOSCOPY 11/23/2022 3:00 AM EST ANTIBODY HIV-1&HIV-2 SINGLE RESULT Routine 12/13/2018 8:48 AM EST Encounter for screening for HIV from Last 3 Months or Most Recently Relevant to Health Maintenance Results * REFERRAL SCANNED DOCUMENT (05/08/2025 3:00 AM EDT) 05/08/2025 3:00 AM EDT Tri Perez PA-C SCAN REFERRAL Final Result * HGA1C W/EAG (09/14/2024 4:58 PM EST) HEMOGLOBIN A1C 5.6 <5.7 % of total Hgb [facility] Comment: For the purpose of screening for the presence of diabetes: <5.7% Consistent with the absence of diabetes 5.7-6.4% Consistent with increased risk for diabetes (prediabetes) > or =6.5% Consistent with diabetes This assay result is consistent with a decreased risk of diabetes. Currently, no consensus exists regarding use of hemoglobin A1c for diagnosis of diabetes in children. According to [place] Diabetes Association (ADA) guidelines, hemoglobin A1c <7.0% represents optimal control in non- diabetic patients. Different metrics may apply to specific patient populations. Standards of Medical Care in Diabetes(ADA). EAG (MG/DL) 114 mg/dL [facility] EAG (MMOL/L) 6.3 mmol/L [facility] Blood Blood / Unknown 09/14/2024 4 :58 PM EST 09/14/2024 4:59 PM EST Narrative [employer] [facility] - 09/15/2024 4:11 AM EST FASTING:NO Tri Perez PA-C LAB - BLOOD DRAW Edited Resu lt - Final [facility] [address] [address], [facility] [address] [address] * (ABNORMAL) LIPIDS W RFLX TO DIRECT LDL (09/14/2024 4:58 PM EST) CHOLESTEROL, TOTAL 167 <200 mg/dL [facility] HDL CHOLESTEROL 34(L) > OR = 40 mg/dL [facility] TRIGLYCERIDES 152(H) <150 mg/dL [facility] LDL-CHOLESTEROL 106(H) 99 mg/dL (calc) [facility] Comment: Reference range: <100 Desirable range <100 mg/dL for primary prevention; <70 mg/dL for patients with CHD or diabetic patients with > or = 2 CHD risk factors. LDL-C is now calculated using the Dallas-Allison calculation, which is a validated novel method providing better accuracy than the Friedewald equation in the estimation of LDL-C. Dallas SS et al. LISSETTE. 2013;310(19): 8682-9695 (http://education.Wannafun/faq/AAA456) CHOL/HDLC RATIO 4.9 <5.0 (calc) [facility] NON-HDL CHOLESTEROL 133(H) <130 mg/dL (calc) [facility] Comment: For patients with diabetes plus 1 major ASCVD risk factor, treating to a non-HDL-C goal of <100 mg/dL (LDL-C of <70 mg/dL) is considered a therapeutic option. Blood Blood / Unknown 09/14/2024 4 :58 PM EST 09/14/2024 4:59 PM EST Narrative [facility] - 09/15/2024 4:11 AM EST FASTING:NO Tri Perez PA-C LAB - BLOOD DRAW Final Resul t Performing Organization Address [facility] Co de Phone Number [facility] [address] [address], [facility] [address] [place] [address] * HISTORIC COLONOSCOPY (11/23/2022 3:00 AM EST) 11/23/2022 3:00 AM EST Tri Perez PA-C PROCEDURES Final Result * HIV-1 & HIV-2 ANTIBODIES (12/13/2018 8:48 AM EST) [facility] HIV 1 AND 2 ANTIBODY SCREEN NEGATIVE NEGATIVE [facility] Comment: This assay is a 4th generation assay allowing for earlier detection of HIV infection by detecting the presence of the HIV-1 p24 antigen as well as the traditional antibodies to HIV type 1 (including group O) and type 2. Use of a 4th generation assay is the current CDC recommendation for HIV screening. Blood specimen (specimen) Blood / Unknown 12/13/2018 8:48 AM EST 12/13/2018 9:11 AM EST Narrative [facility] - 12/13/2018 1:15 PM EST [employer], [place] [address] Phys Asst - Nicole Fletcher MD PT ID [id number] ORD# [id number] Vince SPANN LAB - BLOOD DRAW Final Result Performing Organization Address City/[facility]/ZIP Co de Phone Number [facility] [employer] [address], from Last 3 Months or Most Recently Relevant to Health Maintenance Insurance MEDICARE - ID [facility] Care Teams Hot Saw Operator Relationship Specialty Start Date End Date Tri Perez PA-C [address] [place] [address] PCP - General Internal Medicine 12/09/20
--- OUTSIDE RECORDS SUMMARY | 2025-07-08 08:42 | XMS_ITS | Clinical Summary ---
Author Organization [facility] Address [address] [facility] [address] [place] [address] Phone Care Team Providers Care Protocol Officer Name Role Phone Tri Perez PA-C Primary Care Provider +1- [phone] Allergies Active Allergy Reactions Criticality Noted Date [...] Cancer Screening: Sigmoidoscopy 2020 Influenza Vaccine (#1) 2025 Insurance Medicare Medicaid [place] Care Teams Protocol Officer Relationship Specialty Start Date End Date Tri Perez PA-C [address] [place] [address] PCP - General Physician Superintendent Laundry 09/19/23
--- OUTSIDE RECORDS SUMMARY | 2025-07-08 08:42 | XMS_ITS | Encounter Summary ---
Author Organization [facility] Address [address] [place] [address] Care Team Providers Care Milieu Technician Name Role Phone Tri Perez PA-C Primary Care Provider +[phone] Encounter Details Date Type Department Care Team (Late st Contact Info) Description 04/02/2024 Patient Outreach [address] [address] Yana Eagle, Community Health Worker [address] [place] [address] Social History Tobacco Use Types Packs/Day Years [...] Description 07/22/2025 4:00 PM EDT Office Visit [facility] [address] [place] [address] Nick Schilling PharmD [address] [place] [address] documented as of this encounter Visit Diagnoses Not on filedocumented in this encounter Additional Health Concerns Assessment Noted Time PHQ-9 Depression Total Score: 0 05/24/20 23 2:21 PM PDT documented as of this encounter Care Teams Milieu Technician Relationship Specialty Start Date End Date Tri Perez PA-C [address] [place] [address] PCP - General Internal Medicine 12/09/20 documented as of this encounter
--- OUTSIDE RECORDS SUMMARY | 2025-07-08 08:42 | XMS_ITS | Encounter Summary ---
Author Organization [facility], Address [address] [address] Phone Care Team Providers Care Executive Search Consultant Name Role Phone Tri Perez PA-C Primary Care Provider +1- [phone] Encounter Details Date Type Department Care Team (Late st Contact Info) Description 10/18/2023 Documentation Only [facility], [address] [place] [address] Bi Alfonso MD [address] [place] [phone] Social History Tobacco Use Types Packs/Day Years [...] on filedocumented in this encounter Care Teams Executive Search Consultant Relationship Specialty Start Date End Date Tri Perez PA-C [address] [place] [address] PCP - General Physician Private Mortgage Banker Safe 09/19/23 documented as of this encounter
--- OUTSIDE RECORDS SUMMARY | 2025-07-08 08:42 | XMS_ITS | Encounter Summary ---
Author Organization [facility], Address [address] [address] Phone Care Team Providers Care Project Management It Specialist Name Role Phone Tri Perez PA-C Primary Care Provider +1- [phone] Reason for Visit * Reason Comments Med Refill Encounter Details Date Type Department Care Team (Late st Contact Info) Description 07/05/2024 Refill [facility], [address] [place] [address] Bi Alfonso MD [address] [facility] [place] [phone] Social History Tobacco Use Types Packs/Day Years [...] on filedocumented in this encounter Care Teams Project Management It Specialist Relationship Specialty Start Date End Date Tri Perez PA-C [address] [place] [address] PCP - General Physician Overlay Plastician 09/19/23 documented as of this encounter
[2025-07-08 10:41] LABS: MANUAL DIFF FLAG NO
[2025-07-08 10:46] LABS: Hematocrit 49.2 % (42.0-52.0); Hemoglobin 15.7 g/dl (14.0-18.0); Imm Gran Abs Auto 0.02 X10*3/uL (0.00-0.03); Imm Gran Pct Auto 0.3 % (0.0-0.4); Lymphocytes Absolute Auto 2.3 X10*3/uL (1.2-4.9); Mean Corpuscular HGB Conc 31.9 g/dl (31.0-36.0); Mean Corpuscular Hemoglobin 26.6 pg (27.0-33.0); Mean Corpuscular Volume 83.2 fL (80.0-98.0); NRBC Abs Auto 0.000 X10*3/uL (0.0-0.012); NRBC Pct Auto 0.0 /100WBC (0.0-0.2); Platelet Count 162 X10*3/uL (160-400); Red Blood Count 5.91 X10*6/uL (4.60-5.80); White Blood Count 6.7 X10*3/uL (4.8-10.8)
[2025-07-08 11:19] LABS: Alanine Aminotransferase 23 U/L (0-40); Anion Gap 13 (12-20); Aspartate Amino Transferase 26 U/L (5-37); Blood Urea Nitrogen 19 mg/dL (9-16); Calcium 9.6 mg/dL (8.4-10.2); Carbon Dioxide 26 mmol/L (22-29); Chloride 106 mmol/L (96-108); Cholesterol 153 mg/dL (<200); Estimated Glomerular Filt Rate 50; HDL Cholesterol 31 mg/dL (>40); Magnesium 1.6 mg/dL (1.6-2.6); Potassium 3.0 mmol/L (3.3-5.1); Sodium 142 mmol/L (135-145); Triglycerides 122 mg/dL (<150)
[2025-07-08 11:35] LABS: Hemoglobin A1C 140.7597 umol/L; Total Hemoglobin (HGBA1C) 4097.1066 umol/L
[2025-07-08 11:45] LABS: Parathyroid Hormone Intact 108.9 pg/mL (8.7-77.1)
[2025-07-08 11:47] LABS: Protein/Creatinine Ratio, Ur 0.27 (<0.2); Total Protein Urine Random 22 mg/dL (<12)
[2025-07-09 12:38] LABS: Tacrolimus Prograf 7.6 mcg/L
== END 2025-07-08 08:09 | disposition home or self-care (01) ==
LOC: HO.10HDL 08:08
PROVIDERS: Visit Provider Internal Medicine Nephrology
DX: Z13.1 Encounter for screening for diabetes mellitus (principal); I10 Essential (primary) hypertension; Z94.0 Kidney transplant status
CPT/HCPCS: 36415; 80051; 80061; 80197; 82306; 82310; 82565; 82570; 83036; 83735; 83970; 84100; 84156; 84450; 84460; 84520; 85025

== ENCOUNTER 2025-07-10 15:36 | Outpatient (AMB) | payer MEDICARE, OTHER, SELFPAY ==
--- NOTE | 2025-07-10 15:48 | HO.NEPHOV ---
Vital Signs 07/10/25 15:51 Height 5 ft 5 in Weight 203 lb BMI 33.8 BP 120/70 Blood Pressure Location Rt brachial Position Sitting Pulse 71 Pulse Source Pulse Oximeter Pulse Oximetry (%) 96 Oxygen Delivery Method Room Air Intake Visit Reasons: 2 MO FU Rn Care Transition Required: No Accompanied by: Self / Same As Patient Allergies Penicillins Allergy (Mild, Verified 07/10/25 15:51) Unknown HPI Comments Details: Pablo was in follow-up of his renal transplant. 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 He underwent living unrelated renal transplant on 09/20/2023. He had stent removed on 10/10/2023. He had a panel reactive antibody of 25. Induction was done with Campath. He had no delayed graft function. He required no dialysis treatment post transplant. CMV status of the donor was positive and recipient was positive as well. EBV status of the donor was negative and recipient was positive. Hepatitis-B core antibody for donor and recipient was negative. Hepatitis C virus antibody was negative for donor and recipient. Bk virus PCR was negative as of 12/21/2023. His immunosuppression included Envarsus and Mycophenolate. He did not have any rejection episodes post transplant. He had some fluctuant blood pressure in the last few months which has been better. He had transaminitis which is resolved. His donor specific antibodies were negative as of 12/13/2023. His immunosuppression included Envarsus 2.5 mg daily and mycophenolate 540 mg twice daily. His Prophylaxis Therapy included (Drug/Discontinuation Date) bactrim d/c ed 03/21/24, mycelex d/c ed 12/22/23 & valcyte d/c ed 03/16/24. He had no readmissions the 1st 3 months. Currently he feels well. He is compliant with medications. [facility] Medical History (Updated 03/08/25 @ 16:04 by Harish Lentz MD) History of hepatitis C History of end stage renal disease Surgical History History of kidney transplant Review of Systems Const All systems reviewed & are unremarkable except as noted in HPI and below Physical Exam Vital Signs: Last Vital Signs Pulse 71 07/10/25 15:51 BP 120/70 07/10/25 15:51 Pulse Ox 96 07/10/25 15:51 Oxygen Delivery Method Room Air 07/10/25 15:51 BMI result Body Mass Index 33.8 Const General: comfortable and no acute distress Orientation/consciousness: patient oriented x3 HEENT Head: Yes normocephalic Mouth: Normal oral and palatal mucosa present Eyes EOM: EOMs intact bilaterally Neck Neck: Yes supple Resp Auscultation: clear to auscultation bilaterally Cardio Rate: regular rate GI Palpation (GI): Soft to palpation Auscultation: normal bowel sounds General: Yes no CVA tenderness Back/Spine/Pelvis Back: no CVA tenderness Skin General skin exam: no rashes or lesions noted Neuro General: patient oriented x3 and moves all extremities Extrem General: Yes no pedal edema Results Reviewed Nephrology Results: Hgb, (14.0-18.0) 15.7 g/dl 07/08/25 WBC, (4.8-10.8) 6.7 X10*3/uL 07/08/25 Plt Count, (160-400) 162 X10*3/uL 07/08/25 Sodium, (135-145) 142 mmol/L 07/08/25 Potassium, (3.3-5.1) 3.0 mmol/L L 07/08/25 Chloride, (96-108) 106 mmol/L 07/08/25 Carbon Dioxide, (22-29) 26 mmol/L 07/08/25 BUN, (9-16) 19 mg/dL H 07/08/25 Creatinine, (0.5-1.4) 1.47 mg/dL H 07/08/25 Calcium, (8.4-10.2) 9.6 mg/dL 07/08/25 Phosphorus, (2.7-4.5) 2.8 mg/dL 07/08/25 PTH Intact, (8.7-77.1) 108.9 pg/mL H 07/08/25 Urine Creatinine 81.22 mg/dL 07/08/25 Protein/Creatinin Ratio, (<0.2) 0.27 H 07/08/25 Assessment & Plan Assessment & Plan (1) History of kidney transplant: Code(s): Z94.0 - Kidney transplant status Category: Surgical (2) Hypertension: Code(s): I10 - Essential (primary) hypertension Category: Medical Qualifiers: Hypertension type: primary hypertension Qualified Code(s): I10 - Essential (primary) hypertension (3) Hypokalemia: Code(s): E87.6 - Hypokalemia Category: Medical Plan 1. Allograft function: excellent function; serum creatinine stable 2. Immunosuppression: tolerating; monitoring levels; adjust accordingly; Prophylaxis Therapy included (Drug/Discontinuation Date) bactrim d/c ed 03/21/24, mycelex d/c ed 12/22/23 & valcyte d/c ed 03/16/24. C/W tacrolimus 2 mg daily 3. BP and volume status: Vol status optimal. BP at goal 4. Metabolic parameters: stable; follow up labs 5. Hematologic parameters: counts excellent 6. Other: needs to increase activity; weight loss emphasized 7. Hypokalemia- K replaced Orders: Orders Creatinine 2 Months E87.6 - Hypokalemia, I10 - Essential (primary) hypertension, Z94.0 - Kidney transplant status Phosphorus 2 Months E87.6 - Hypokalemia, I10 - Essential (primary) hypertension, Z94.0 - Kidney transplant status Magnesium 2 Months E87.6 - Hypokalemia, I10 - Essential (primary) hypertension, Z94.0 - Kidney transplant status Tacrolimus Prograf 2 Months E87.6 - Hypokalemia, I10 - Essential (primary) hypertension, Z94.0 - Kidney transplant status Alanine Aminotransferase 2 Months E87.6 - Hypokalemia, I10 - Essential (primary) hypertension, Z94.0 - Kidney transplant status Aspartate Amino Transferase 2 Months E87.6 - Hypokalemia, I10 - Essential (primary) hypertension, Z94.0 - Kidney transplant status Protein Creatinine Ratio, Ur 2 Months E87.6 - Hypokalemia, I10 - Essential (primary) hypertension, Z94.0 - Kidney transplant status Lipid Panel 2 Months E87.6 - Hypokalemia, I10 - Essential (primary) hypertension, Z94.0 - Kidney transplant status Electrolytes 1 Month E87.6 - Hypokalemia, I10 - Essential (primary) hypertension, Z94.0 - Kidney transplant status Blood Urea Nitrogen 1 Month E87.6 - Hypokalemia, I10 - Essential (primary) hypertension, Z94.0 - Kidney transplant status Blood Urea Nitrogen 2 Months E87.6 - Hypokalemia, I10 - Essential (primary) hypertension, Z94.0 - Kidney transplant status Electrolytes 2 Months E87.6 - Hypokalemia, I10 - Essential (primary) hypertension, Z94.0 - Kidney transplant status Calcium 2 Months E87.6 - Hypokalemia, I10 - Essential (primary) hypertension, Z94.0 - Kidney transplant status Complete Blood Count Auto Diff 2 Months E87.6 - Hypokalemia, I10 - Essential (primary) hypertension, Z94.0 - Kidney transplant status Creatinine 1 Month E87.6 - Hypokalemia, I10 - Essential (primary) hypertension, Z94.0 - Kidney transplant status Coding Level of Care Code Est Pt Level 4 (06260) Diagnoses History of kidney transplant Z94.0 Primary hypertension I10 Hypertension type: primary hypertension Hypokalemia E87.6
[2025-07-10 15:51] VITALS: BP 120/70; PULSE 71; O2SAT 96; BMI 33.8
--- OUTSIDE RECORDS SUMMARY | 2025-07-10 18:56 | XMS_ITS | Encounter Summary ---
Author Organization [facility], Address [address] [address] Phone Care Team Providers Care Printing Roller Handler Name Role Phone Tri Perez PA-C Primary Care Provider +1- [phone] Reason for Visit * Reason Comments Med Refill Encounter Details Date Type Department Care Team (Late st Contact Info) Description 07/05/2024 Refill [facility], [address] [place] [address] Bi Aflonso MD [address] [place] [phone] Social History Tobacco Use Types Packs/Day Years [...] on filedocumented in this encounter Care Teams Printing Roller Handler Relationship Specialty Start Date End Date Tri Perez PA-C [address] [place] [address] PCP - General Physician Wall Worker 09/19/23 documented as of this encounter
--- OUTSIDE RECORDS SUMMARY | 2025-07-10 18:56 | XMS_ITS | Encounter Summary ---
Author Organization [facility], Address [address] [place] [address] Phone Care Team Providers Care Undercollar Baster Name Role Phone Tri Perez PA-C Primary Care Provider +1- [phone] Encounter Details Date Type Department Care Team (Late st Contact Info) Description 11/25/2023 Documentation Only [facility], [address] [place] [address] Tor Alfred, DO [address] [place] [address] Social History Tobacco Use Types [...] on filedocumented in this encounter Care Teams Undercollar Baster Relationship Specialty Start Date End Date Tri Perez PA-C [address] [place] [address] PCP - General Physician Rail Transportation Operator 09/19/23 documented as of this encounter
--- OUTSIDE RECORDS SUMMARY | 2025-07-10 18:56 | XMS_ITS | Clinical Summary ---
Author Organization [facility] Address [address] [place] [address] Care Team Providers Care Residential Insurance Inspector Name Role Phone Tri Perez PA-C Primary Care Provider + [phone] Source Comments PLEASE NOTE, if this patient [...] mouth daily (pres[place] by [facility] 024 Active omeprazole (PRILOSEC) [address] capsule [facility]/pharmacy #[id number] [place], [place] [phone] 90 Each 0 Days Supply: 90Sig: TOME 1 C PSULA POR V A ORAL TODOS LOS D ASSource: 2 Outside SourcesAuthorized by: PETER GAMBLE 024 Active carvediloL (COREG) 25 mg tablet Take 1 Tablet by mouth 2 (two) times daily with a meal (Prescribed by [facility] 024 Active tadalafiL (CIALIS) 20 mg tablet [facility] [address] [place] [address] 15 Each 4 Days Supply: 15Sig: TAKE 1 TABLET BY MOUTH ONCE DAILY NEEDED FOR SEXUAL ACTIVITY. TAKE APPROXIMATELY 30 MINUTES BEFORE SEXUAL ACTIVITY. DO NOT USE MORE THAN 1 DOSE PER 24 HOURSSource: Surescripts (Fill History, Ambulatory)Authorize d by: RAYMOND ELKINS 024 Active ENVARSUS XR 1 mg Tb24 Take 1 Tablet by mouth daily (Prescribed by [facility] 024 Active ENVARSUS XR 0.75 mg Tb24 Take 2 Tablets by mouth daily (Prescribed by [facility] 024 Active mycophenolate sodium 180 mg TbEC Take 3 Tablets by mouth 2 (two) times daily (Prescribed by [facility] 024 Active blood pressure test kit-largeIndica tions:Essential hypertension SMBP Program - [employer] - Checking BP 3 times per week [...] SUPPLY MISCIndications :Essential hypertension,Ki dney transplant recipient ([facility]) by miscellaneous route once daily XL [...] 33.9 in adult 05/02/2024 Kidney transplant recipient ([facility]) 02/13/2024 Overview (12/25/2024): Completed living unrelated renal transplant 09/20/23 10/29/24 at [facility] Stable, no medication changes Referred to urology due to ES 09/12/24 - [facility] Stable, no medication changes. 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--plan was to get [...] (BMI) of 36.0 to 36.9 in adult ([facility]) 08/24/2018 11/23/2024 Encounters Date Type Department Care Team Description 05/01/2025 3:00 PM EDT Office Visit [address] [address] Pool Jackson, Faraz Mcclellan from Last 3 [...] Description 07/22/2025 4:00 PM EDT Office Visit [facility] [address] [place] [phone] Nick Schilling, PharmD [address] [place] [address] Health Maintenance Due Date Last Done Comments Medicare Annual Wellness Visit 1989 Imm-Hepatitis B (1 of 3 - 19 + 3-dose series) 1990 Imm-Pneumococcal 50+ (1 of 2 - PCV) 1990 CT Colonography 2016 FIT/gFOBT 2016 Fecal DNA 2016 Flexible Sigmoidoscopy 2016 [id number] (6 - Moderna ri sk 2023- season) [...] A1C 5.6 <5.7 % of total Hgb [facility] Comment: For the purpose of screening for the presence of diabetes: <5.7% Consistent with the absence of diabetes 5.7-6.4% Consistent with increased risk for diabetes (prediabetes) > or =6.5% Consistent with diabetes This assay result is consistent with a decreased risk of diabetes. Currently, no consensus exists regarding use of hemoglobin A1c for diagnosis of diabetes in children. According to [place] Diabetes Association (ADA) guidelines, hemoglobin A1c <7.0% represents optimal control in non- diabetic patients. Different metrics may apply to specific patient populations. Standards of Medical Care in Diabetes(ADA). EAG (MG/DL) 114 mg/dL [facility] EAG (MMOL/L) 6.3 mmol/L [facility] Blood Blood / Unknown 09/14/2024 4 :58 PM EST 09/14/2024 4:59 PM EST Narrative [facility] - 09/15/2024 4:11 AM EST FASTING:NO Tri Perez PA-C LAB - BLOOD DRAW Edited Resu lt - Final [facility] [address] [address], [facility] [address] [address] * (ABNORMAL) LIPIDS W RFLX TO DIRECT LDL (09/14/2024 4:58 PM EST) CHOLESTEROL, TOTAL 167 <200 mg/dL [facility] HDL CHOLESTEROL 34(L) > OR = 40 mg/dL [facility] TRIGLYCERIDES 152(H) <150 mg/dL [facility] LDL-CHOLESTEROL 106(H) 99 mg/dL (calc) [facility] Comment: Reference range: <100 Desirable range <100 mg/dL for primary prevention; <70 mg/dL for patients with CHD or diabetic patients with > or = 2 CHD risk factors. LDL-C is now calculated using the Dallas-Allison calculation, which is a validated novel method providing better accuracy than the Friedewald equation in the estimation of LDL-C. Dallas SS et al. LISSETTE. 2013;310(19): 4489-2428 (http://education.tocario/faq/OLB397) CHOL/HDLC RATIO 4.9 <5.0 (calc) [facility] NON-HDL CHOLESTEROL 133(H) <130 mg/dL (calc) [facility] Comment: For patients with diabetes plus 1 major ASCVD risk factor, treating to a non-HDL-C goal of <100 mg/dL (LDL-C of <70 mg/dL) is considered a therapeutic option. Blood Blood / Unknown 09/14/2024 4 :58 PM EST 09/14/2024 4:59 PM EST Narrative [facility] - 09/15/2024 4:11 AM EST FASTING:NO Tri Perez PA-C LAB - BLOOD DRAW Final Resul t Performing Organization Address City/[facility] Co de Phone Number [facility] [address] [address], [facility] [address] [place] [address] * HISTORIC COLONOSCOPY (11/23/2022 3:00 AM EST) 11/23/2022 3:00 AM EST Tri Perez PA-C PROCEDURES Final Result * HIV-1 & HIV-2 ANTIBODIES (12/13/2018 8:48 AM EST) [facility] HIV 1 AND 2 ANTIBODY SCREEN NEGATIVE NEGATIVE [employer] [facility] Comment: This assay is a [...] AM EST 12/13/2018 9:11 AM EST Narrative [facility] - 12/13/2018 1:15 PM EST [employer] [address] Die Cast Die Maker - Nicole Fletcher MD PT ID [id number] ORD# [id number] Vince [facility] LAB - BLOOD DRAW Final Result Performing Organization Address City/[facility]/ZIP Co de Phone Number [facility] [email or web address] [address], from Last 3 Months or Most Recently Relevant to Health Maintenance Insurance MEDICARE - [place] [facility] Care Teams Residential Insurance Inspector Relationship Specialty Start Date End Date Tri Perez PA-C [address] [place] [address] PCP - General Internal Medicine 12/09/20
--- OUTSIDE RECORDS SUMMARY | 2025-07-10 18:56 | XMS_ITS | Clinical Summary ---
Author Organization [facility] Address [address] [facility] [address] [place] [address] Phone Care Team Providers Care Grounds Maintenance Supervisor Name Role Phone Tri Perez PA-C Primary Care Provider +1- [phone] Allergies Active Allergy Reactions Criticality Noted Date [...] Medicaid [place] Care Teams Grounds Maintenance Supervisor Relationship Specialty Start Date End Date Tri Perez PA-C [address] [place] [address] PCP - General Physician Cage Operator 09/19/23
--- OUTSIDE RECORDS SUMMARY | 2025-07-10 18:56 | XMS_ITS | Encounter Summary ---
Author Organization [facility] Address [address] [place] [address] Care Team Providers Care Salvage Winder Name Role Phone Tri Perez PA-C Primary Care Provider +1 [phone] Encounter Details Date Type Department Care Team (Late st Contact Info) Description 04/02/2024 Patient Outreach [address] [address] Yana Eagle, Community Health Worker [address] [place] [address] Social History Tobacco Use Types Packs/Day Years [...] Description 07/22/2025 4:00 PM EDT Office Visit [facility] [address] [place] [address] Nick Schilling PharmD [address] [place] [address] documented as of this encounter Visit Diagnoses Not on filedocumented in this encounter Additional Health Concerns Assessment Noted Time PHQ-9 Depression Total Score: 0 05/24/20 23 2:21 PM PDT documented as of this encounter Care Teams Salvage Winder Relationship Specialty Start Date End Date Tri Perez PA-C [address] [place] [address] PCP - General Internal Medicine 12/09/20 documented as of this encounter
--- OUTSIDE RECORDS SUMMARY | 2025-07-10 18:56 | XMS_ITS | Clinical Summary ---
Author Organization [facility] Address [address] [place] [address] Phone Care Team Providers Care Brim Stiffener Name Role Phone Tri Perez Primary Care Provider Allergies Active Allergy Reactions Criticality Noted Date Comments Penicillins Unknown 01/11/2025 UNSURE REACTION Medications No known medications Active Problems Problem Noted Date Diagnosed Date Fistula Overview (01/11/2025): LEFT SIDED DIALYSIS FISTULA Surgical History Surgery Date Site/Laterality Comments CHOLECYSTECTOMY PROCEDURE: MS LAPAROSCOPY SURG CHOLECYSTECTOMY Medical History Medical History [...] patient's age to complete this topic Insurance [facility] MEDICARE Advance Directives Documents on File Type Date Recorded Patient Plastics Technician Expl anation Health Care Decision (hx) 06/11/2020 AD CHANDRA DIRECTIVE Health Care Decision (hx) 06/11/2020 AD CHANDRA DIRECTIVE Care Teams Brim Stiffener Relationship Specialty Start Date End Date Tri Perez PA [address] [place] [id number] PCP - General 01/11/25
--- OUTSIDE RECORDS SUMMARY | 2025-07-10 18:56 | XMS_ITS | Encounter Summary ---
Author Organization [facility] Address [address] [place] [address] Care Team Providers Care Water Proofer Name Role Phone Tri Perez PA-C Primary Care Provider +1 [phone] Encounter Details Date Type Department Care Team (Late st Contact Info) Description 05/28/2024 Patient Outreach [address] [address] Yana Eagle, Community Health Worker [address] [place] [address] Social History Tobacco Use Types Packs/Day Years [...] Description 07/22/2025 4:00 PM EDT Office Visit [facility] [address] [place] [address] Nick Schilling, LeightonD [address] [place] [address] documented as of this encounter Visit Diagnoses Not on filedocumented in this encounter Additional Health Concerns Assessment Noted Time PHQ-9 Depression Total Score: 0 05/24/20 23 2:21 PM PDT documented as of this encounter Care Teams Water Proofer Relationship Specialty Start Date End Date Tri Perez PA-C [address] [place] [address] PCP - General Internal Medicine 12/09/20 documented as of this encounter
--- OUTSIDE RECORDS SUMMARY | 2025-07-10 18:56 | XMS_ITS | Encounter Summary ---
Author Organization [facility], Address [address] [address] Phone Care Team Providers Care Small Engine Specialist Name Role Phone Tri Perez PA-C Primary Care Provider +1- [phone] Encounter Details Date Type Department Care Team (Late st Contact Info) Description 10/18/2023 Documentation Only [facility], [address] [place] [address] Bi Alfonso MD [address] [place] [phone] Social History Tobacco Use Types Packs/Day Years [...] on filedocumented in this encounter Care Teams Small Engine Specialist Relationship Specialty Start Date End Date Tri Perez PA-C [address] [place] [address] PCP - General Physician Plating Equipment Tender 09/19/23 documented as of this encounter
--- OUTSIDE RECORDS SUMMARY | 2025-07-10 18:56 | XMS_ITS | Encounter Summary ---
Author Organization [facility] Address [address] [facility] 200 [place] [address] Phone Care Team Providers Care Direct Support Professional Caregiver Name Role Phone Tri Perez PA-C Primary Care Provider +1- [phone] Reason for Visit * Reason Comments Med Refill Encounter Details Date Type Department Care Team ([facility] st Contact Info) Description 03/13/2022 Refill [facility] [address] [facility] 200 [place] [phone] Sudheer Hartman MD [address] [facility] [address] [place] [phone] Social History Tobacco Use Types Packs/Day Years [...] on filedocumented in this encounter Care Teams Direct Support Professional Caregiver Relationship Specialty Start Date End Date Tri Perez PA-C [address] [place] [address] PCP - General Physician Ordnance Mechanic 11/27/23 documented as of this encounter
--- OUTSIDE RECORDS SUMMARY | 2025-07-10 18:56 | XMS_ITS | Encounter Summary ---
Author Organization [facility] Address [address] [facility] [address] [facility] [address] [place] [address] Phone Care Team Providers Care Suture Winder Hand Name Role Phone Tri Perez PA-C Primary Care Provider +1- [phone] Reason for Visit * Reason Comments Med Refill Encounter Details Date Type Department Care Team ([facility] st Contact Info) Description 08/28/2022 Refill [facility] [address] [facility] [address] [facility] [address] [place] [phone] Sudheer Hartman MD [address] [facility] [address] [place] [phone] Social History Tobacco Use Types Packs/Day Years [...] on filedocumented in this encounter Care Teams Suture Winder Hand Relationship Specialty Start Date End Date Tri Perez PA-C [address] [place] [address] PCP - General Physician Manager Quality Improvement 09/19/23 documented as of this encounter
--- OUTSIDE RECORDS SUMMARY | 2025-07-10 18:56 | XMS_ITS | Encounter Summary ---
Author Organization [facility], Address [address] [address] Phone Care Team Providers Care Inspector Bicycle Name Role Phone Tri Perez PA-C Primary Care Provider +1- [phone] Reason for Visit * Reason Comments Med Refill Encounter Details Date Type Department Care Team (Late st Contact Info) Description 08/08/2024 Refill [facility], [address] [facility] [place] [address] Bi Alfonso MD [address] [facility] [place] [phone] Social History Tobacco Use Types Packs/Day Years [...] on filedocumented in this encounter Care Teams Inspector Bicycle Relationship Specialty Start Date End Date Tri Perez PA-C [address] [place] [address] PCP - General Physician Foster Parent 09/19/23 documented as of this encounter
== END 2025-07-10 16:02 | disposition home or self-care (01) ==
LOC: HO.HKA 15:36
PROVIDERS: PCP Physician Assistant; Visit Provider Internal Medicine Nephrology
DX: Z94.0 Kidney transplant status (principal); I10 Essential (primary) hypertension; E87.6 Hypokalemia
CPT/HCPCS: 99214

== ENCOUNTER → 2025-07-10 15:36 | Outpatient (BNVA) | payer MEDICARE, OTHER, SELFPAY | PROVIDERS: PCP Physician Assistant; Visit Provider Internal Medicine Nephrology | DX: E87.6 Hypokalemia (principal); I10 Essential (primary) hypertension; Z94.0 Kidney transplant status | CPT/HCPCS: 99212 ==

== ENCOUNTER 2025-08-09 08:15 | Outpatient (REF) | payer OTHER, SELFPAY ==
--- OUTSIDE RECORDS SUMMARY | 2025-08-09 08:30 | XMS_ITS | Encounter Summary ---
Author Organization [facility] Address [address] [place] [address] Care Team Providers Care Spanish Linguist Name Role Phone Tri Perez PA-C Primary Care Provider + [phone] Encounter Details Date Type Department Care Team (Late st Contact Info) Description 05/28/2024 Patient Outreach [address] [address] Yana Eagle, Community Health Worker [address] [place] [address] Social History Tobacco Use Types Packs/Day Years [...] documented as of this encounter Care Teams Spanish Linguist Relationship Specialty Start Date End Date Tri Perez PA-C [address] [place] [address] PCP - General Internal Medicine 12/09/20 documented as of this encounter
--- OUTSIDE RECORDS SUMMARY | 2025-08-09 08:30 | XMS_ITS | Encounter Summary ---
Author Organization [facility] [place], Address [address] [address] Phone Care Team Providers Care Judicial Reporter Name Role Phone Tri Perez PA-C Primary Care Provider +1- [phone] Encounter Details Date Type Department Care Team (Late st Contact Info) Description 10/18/2023 Documentation Only [facility] [place], [address] [place] [address] Bi Alfonso MD [address] [place] [phone] Social History Tobacco Use Types Packs/Day Years [...] on filedocumented in this encounter Care Teams Judicial Reporter Relationship Specialty Start Date End Date Tri Perez PA-C [address] [place] [address] PCP - General Physician Client Engagement Manager 09/19/23 documented as of this encounter
--- OUTSIDE RECORDS SUMMARY | 2025-08-09 08:30 | XMS_ITS | Clinical Summary ---
Author Organization [facility] Address [address] [facility] [address] 0 [place] [address] Phone Care Team Providers Care Cpa Tax Name Role Phone Tri Perez PA-C Primary Care Provider +1- [phone] Allergies Active Allergy Reactions Criticality Noted Date [...] Medicaid [place] Medicare Medicaid [place] Care Teams Cpa Tax Relationship Specialty Start Date End Date Tri Perez PA-C [address] [place] [address] PCP - General Physician Truck Driver 09/19/23
--- OUTSIDE RECORDS SUMMARY | 2025-08-09 08:30 | XMS_ITS | Encounter Summary ---
Author Organization [facility] Address [address] [facility] [address] [facility] [address] [place] [address] Phone Care Team Providers Care Lead Java Developer Architect Name Role Phone Tri Perez PA-C Primary Care Provider +1- [phone] Reason for Visit * Reason Comments Med Refill Encounter Details Date Type Department Care Team ([facility] st Contact Info) Description 08/28/2022 Refill [facility] [address] [facility] [address] [facility] [address] [place] [phone] Sudheer Hartman MD [address] [facility] [address] [place] [phone] Social History Tobacco Use Types Packs/Day Years [...] on filedocumented in this encounter Care Teams Lead Java Developer Architect Relationship Specialty Start Date End Date Tri Perez PA-C [address] [place] [address] PCP - General Physician Jewel Waxer 09/19/23 documented as of this encounter
--- OUTSIDE RECORDS SUMMARY | 2025-08-09 08:30 | XMS_ITS | Encounter Summary ---
Author Organization [facility] [place], Address [address] [place] [address] Phone Care Team Providers Care Seater Grinder Name Role Phone Tri Perez PA-C Primary Care Provider +1- [phone] Encounter Details Date Type Department Care Team (Late st Contact Info) Description 11/25/2023 Documentation Only [facility], [address] [place] [address] Tor Alfred, DO [address] [place] [address] Social History Tobacco Use Types [...] on filedocumented in this encounter Care Teams Seater Grinder Relationship Specialty Start Date End Date Tri Perez PA-C [address] [place] [address] PCP - General Physician Supervisor Production Department 09/19/23 documented as of this encounter
--- OUTSIDE RECORDS SUMMARY | 2025-08-09 08:31 | XMS_ITS | Encounter Summary ---
Author Organization [facility] Address 100 [facility] 200 [place] [address] Phone Care Team Providers Care Hydrostatic Tester Name Role Phone Tri Perez PA-C Primary Care Provider +1- [phone] Reason for Visit * Reason Comments Med Refill Encounter Details Date Type Department Care Team ([facility] st Contact Info) Description 03/13/2022 Refill [facility] 100 [facility] 200 [place] [phone] Sudheer Hartman MD [address] [facility] [address] [place] [phone] Social History Tobacco Use Types Packs/Day Years [...] on filedocumented in this encounter Care Teams Hydrostatic Tester Relationship Specialty Start Date End Date Tri Perez PA-C [address] [place] [address] PCP - General Physician Financial Compliance Examiner 11/27/23 documented as of this encounter
--- OUTSIDE RECORDS SUMMARY | 2025-08-09 08:31 | XMS_ITS | Encounter Summary ---
Author Organization [facility] [place], Address [address] [address] Phone Care Team Providers Care Reverberatory Furnace Supervisor Name Role Phone Tri Perez PA-C Primary Care Provider +1- [phone] Reason for Visit * Reason Comments Med Refill Encounter Details Date Type Department Care Team (Late st Contact Info) Description 08/08/2024 Refill [facility] [place], [address] [facility] [place] [address] Bi Alfonso MD [address] [facility] [place] [phone] Social History Tobacco Use Types Packs/Day Years [...] on filedocumented in this encounter Care Teams Reverberatory Furnace Supervisor Relationship Specialty Start Date End Date Tri Perez PA-C [address] [place] [address] PCP - General Physician Furnace Checker 09/19/23 documented as of this encounter
--- OUTSIDE RECORDS SUMMARY | 2025-08-09 08:31 | XMS_ITS | Encounter Summary ---
Author Organization [facility] [place], Address [address] [address] Phone Care Team Providers Care Proprietary Trader Name Role Phone Tri Perez PA-C Primary Care Provider +1- [phone] Reason for Visit * Reason Comments Med Refill Encounter Details Date Type Department Care Team (Late st Contact Info) Description 07/05/2024 Refill [facility], [address] [facility] [place] [place] [address] Bi Alfonso MD [address] [facility] [place] [phone] Social History Tobacco Use Types Packs/Day Years [...] on filedocumented in this encounter Care Teams Proprietary Trader Relationship Specialty Start Date End Date Tri Perez PA-C [address] [place] [address] PCP - General Physician Websphere Portal Architect 09/19/23 documented as of this encounter
--- OUTSIDE RECORDS SUMMARY | 2025-08-09 08:31 | XMS_ITS | Clinical Summary ---
Author Organization [facility] Address [address] [place] [address] Phone Care Team Providers Care Creative Perfumer Name Role Phone Tri Perez Primary Care Provider Allergies Active Allergy Reactions Criticality Noted Date Comments Penicillins Unknown 01/11/2025 UNSURE REACTION Medications No known medications Active Problems Problem Noted Date Diagnosed Date Fistula Overview (01/11/2025): LEFT SIDED DIALYSIS FISTULA Surgical History Surgery Date Site/Laterality Comments CHOLECYSTECTOMY PROCEDURE: [place] LAPAROSCOPY SURG CHOLECYSTECTOMY Medical History Medical History [...] Health Maintenance Due Date Last Done Comments Colorectal Cancer Screening: Colonoscopy 1971 Hepatitis A Vaccines (1 of 2 - Risk 2-dose series) 1990 Hepatitis B Vaccines (1 of 3 - 19+ 3-dose series) 1990 Pneumococcal Vaccine: 50+ Years (1 of 2 - PCV) 1990 RSV Immunization Adult Patients (1 - Risk 50-74 years 1-dose series) 2021 Hepatitis C Screening 09/25/2022 Medicare Annual Wellness Visit 09/25/2022 Social Influencers of Health Screening 09/25/2022 Depression Screening 10/24/2024 Hypertension/CHF/CAD Annual BMP Blood Test 01/11/2025 COVID-19 Vaccine (6 - Moderna risk 2023- season) 2025 08/28/2024, 05/24/2023, 10/13/2021, Additional history [...] patient's age to complete this topic Insurance [facility] MEDICARE Advance Directives Documents on File Type Date Recorded Patient Dirt Contractor Expl anation Health Care Decision (hx) 06/11/2020 AD CHANDRA DIRECTIVE Health Care Decision (hx) 06/11/2020 AD CHANDRA DIRECTIVE Care Teams Creative Perfumer Relationship Specialty Start Date End Date Tri Perez PA [address] [place] [address] PCP - General 01/11/25
--- OUTSIDE RECORDS SUMMARY | 2025-08-09 08:31 | XMS_ITS | Encounter Summary ---
Author Organization [facility] Address [address] [place] [address] Care Team Providers Care Brazer Assembler Name Role Phone Tri Perez PA-C Primary Care Provider +1 [phone] Encounter Details Date Type Department Care Team (Late st Contact Info) Description 04/02/2024 Patient Outreach [address] [address] Yana Eagle, Community Health Worker [address] [place] [address] Social History Tobacco Use Types Packs/Day Years [...] documented as of this encounter Care Teams Brazer Assembler Relationship Specialty Start Date End Date Tri Perez PA-C [facility] [place] [address] PCP - General Internal Medicine 12/09/20 documented as of this encounter
--- OUTSIDE RECORDS SUMMARY | 2025-08-09 08:32 | XMS_ITS | Clinical Summary ---
Author Organization [facility] Address [address] [place] [address] Care Team Providers Care Dental Specialist Name Role Phone Tri Perez PA-C Primary Care Provider + [phone] Source Comments PLEASE NOTE, if this patient [...] mouth daily (pres[facility] by [facility] 024 Active omeprazole (PRILOSEC) [address] anaid [facility]/pharmacy #[id number] [place], [place] [phone] 90 Each 0 Days Supply: 90Sig: TOME 1 C PSULA POR V A ORAL TODOS LOS D ASSource: 2 Outside SourcesAuthorized by: PETER GAMBLE 024 Active carvediloL (COREG) 25 mg tablet Take 1 Tablet by mouth 2 (two) times daily with a meal (Prescribed by [facility] 024 Active tadalafiL (CIALIS) 20 mg tablet [facility] [address] [place] [address] 15 Each 4 Days Supply: 15Sig: TAKE 1 TABLET BY MOUTH ONCE DAILY NEEDED FOR SEXUAL ACTIVITY. TAKE APPROXIMATELY 30 MINUTES BEFORE SEXUAL ACTIVITY. DO NOT USE MORE THAN 1 DOSE PER 24 HOURSSource: Surescripts (Fill History, Ambulatory)Authorize d by: RAYMOND ELKINS 024 Active ENVARSUS XR 1 mg Tb24 Take 1 Tablet by mouth daily (Prescribed by [facility] 024 Active ENVARSUS XR 0.75 mg Tb24 Take 2 Tablets by mouth daily (Prescribed by [facility] 024 Active mycophenolate sodium 180 mg TbEC Take 3 Tablets by mouth 2 (two) times daily (Prescribed by [facility] 024 Active blood pressure test kit-largeIndica tions:Essential hypertension SMBP Program - Jetpac - Checking BP 3 times per week [...] SUPPLY MISCIndications :Essential hypertension,Ki dney transplant recipient by miscellaneous route once daily XL Blood [...] transplant 09/20/23 10/29/24 at [facility] Stable, no medication changes Referred to urology due to ES 09/12/24 - [facility] Stable, no medication changes. 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--plan was to get [...] (BMI) of 36.0 to 36.9 in adult 08/24/2018 5 Immunizations Immunization Administration Dates Next Due MODERNA [...] 2016 Fecal DNA 2016 Flexible Sigmoidoscopy 2016 [id number] ( season) 2025 08/28/2024, 05/24/2023, 10/13/2021, Additional history exists Diabetes [...] Date/Time Associated Diagnosis Comments REFERRAL SCANNED DOCUMENT 07/10/2025 3:00 AM EDT HGA1C W/EAG Routine 09/14/2024 4:58 PM EST Obesity (BMI 30-39.9) LIPIDS W RFLX TO DIRECT LDL Routine 09/14/2024 4:58 PM EST Obesity (BMI 30-39.9) HISTORIC COLONOSCOPY 11/23/2022 3:00 AM EST ANTIBODY HIV-1&HIV-2 SINGLE RESULT Routine 12/13/2018 8:48 AM EST Encounter for screening for HIV from Last 3 Months or Most Recently Relevant to Health Maintenance Results * REFERRAL SCANNED DOCUMENT (07/10/2025 3:00 AM EDT) 07/10/2025 3:00 AM EDT us Tri Perez PA-C SCAN REFERRAL Final Result * HGA1C W/EAG (09/14/2024 4:58 PM EST) HEMOGLOBIN A1C 5.6 <5.7 % of total Hgb [facility] Comment: For the purpose of screening for the presence of diabetes: <5.7% Consistent with the absence of diabetes 5.7-6.4% Consistent with increased risk for diabetes (prediabetes) > or =6.5% Consistent with diabetes This assay result is consistent with a decreased risk of diabetes. Currently, no consensus exists regarding use of hemoglobin A1c for diagnosis of diabetes in children. According to [place] Diabetes Association (ADA) guidelines, hemoglobin A1c <7.0% represents optimal control in non- diabetic patients. Different metrics may apply to specific patient populations. Standards of Medical Care in Diabetes(ADA). EAG (MG/DL) 114 mg/dL [facility] AG[facility] EAG (MMOL/L) 6.3 mmol/L [facility] IAGNBambisa Blood Blood / Unknown 09/14/2024 4 :58 PM EST 09/14/2024 4:59 PM EST Narrative [employer] - 09/15/2024 4:11 AM EST FASTING:NO us Tri Perez PA-C LAB - BLOOD DRAW Edited Resu lt - Final [employer] [address] [place] [address], [facility] [address] [place] [phone] * (ABNORMAL) LIPIDS W RFLX TO DIRECT LDL (09/14/2024 4:58 PM EST) CHOLESTEROL, TOTAL 167 <200 mg/dL [facility] HDL CHOLESTEROL 34(L) > OR = 40 mg/dL [facility] TRIGLYCERIDES 152(H) <150 mg/dL [employer] [facility] LDL-CHOLESTEROL 106(H) 99 mg/dL (calc) [employer] [facility] Comment: Reference range: <100 Desirable range <100 mg/dL for primary prevention; <70 mg/dL for patients with CHD or diabetic patients with > or = 2 CHD risk factors. LDL-C is now calculated using the Nathaly calculation, which is a validated novel method providing better accuracy than the Friedewald equation in the estimation of LDL-C. Dallas SS et al. LISSETTE. 2013;310(19): 7563-2626 (http://education.Psonar/faq/PKL268) CHOL/HDLC RATIO 4.9 <5.0 (calc) [employer] [facility] NON-HDL CHOLESTEROL 133(H) <130 mg/dL (calc) [employer] [facility] Comment: For patients with diabetes plus 1 major ASCVD risk factor, treating to a non-HDL-C goal of <100 mg/dL (LDL-C of <70 mg/dL) is considered a therapeutic option. Blood Blood / Unknown 09/14/2024 4 :58 PM EST 09/14/2024 4:59 PM EST Narrative [employer] [facility] - 09/15/2024 4:11 AM EST FASTING:NO us Tri Perez PA-C LAB - BLOOD DRAW Final Resul t [employer] [address] [address], [employer] [address] [address] * HISTORIC COLONOSCOPY (11/23/2022 3:00 AM EST) 11/23/2022 3:00 AM EST us Tri Perez PA-C PROCEDURES Final Result * HIV-1 & HIV-2 ANTIBODIES (12/13/2018 8:48 AM EST) [facility] HIV 1 AND 2 ANTIBODY SCREEN NEGATIVE NEGATIVE [facility] Comment: This assay is a 4th generation [...] AM EST 12/13/2018 9:11 AM EST Narrative [employer] - 12/13/2018 1:15 PM EST [employer], a member of [address] [address] Manager [employer] - Nicole Fletcher MD PT ID [id number] ORD# [id number] Vince [facility]ANN LAB - BLOOD DRAW Final Result [employer]-[address] [address], from Last 3 Months or Most Recently Relevant to Health Maintenance Insurance MEDICARE - [place] [facility] Care Teams Dental Specialist Relationship Specialty Start Date End Date Tri Perez PA-C [address] [place] [address] PCP - General Internal Medicine 12/09/20
[2025-08-09 10:27] LABS: Anion Gap 11 (12-20); Blood Urea Nitrogen 20 mg/dL (9-16); Carbon Dioxide 30 mmol/L (22-29); Chloride 105 mmol/L (96-108); Estimated Glomerular Filt Rate 54; Potassium 3.4 mmol/L (3.3-5.1); Sodium 143 mmol/L (135-145)
== END 2025-08-09 08:16 | disposition home or self-care (01) ==
LOC: HO.10HDL 08:15
PROVIDERS: Visit Provider Internal Medicine Nephrology
DX: E87.6 Hypokalemia (principal); I10 Essential (primary) hypertension; Z94.0 Kidney transplant status
CPT/HCPCS: 36415; 80051; 82565; 84520

== ENCOUNTER 2025-09-18 08:16 | Outpatient (REF) | payer OTHER, SELFPAY ==
--- OUTSIDE RECORDS SUMMARY | 2025-09-18 08:32 | XMS_ITS | Clinical Summary ---
Author Organization [facility] Address [address] [place] [address] Phone Care Team Providers Care Jd Edwards Name Role Phone Tri Perez Primary Care [...] Annual BMP Blood Test 01/11/2025 COVID-19 Vaccine ( season) 2025 08/28/2024, 05/24/2023, 10/13/2021, Additional [...] patient's age to complete this topic Insurance [facility] MEDICARE Advance Directives Documents on File Type Date Recorded Patient Vending Machine Collector Expl anation Health Care Decision (hx) 06/11/2020 AD CHANDRA DIRECTIVE Health Care Decision (hx) 06/11/2020 AD CHANDRA DIRECTIVE Care Teams Jd Edwards Relationship Specialty Start Date End Date Tri Perez PA [address] [place] [address] PCP - General 01/11/25
--- OUTSIDE RECORDS SUMMARY | 2025-09-18 08:32 | XMS_ITS | Encounter Summary ---
Author Organization [facility] [place], Address [address] [address] Phone Care Team Providers Care Bushler Name Role Phone Tri Perez PA-C Primary Care Provider +1- [phone] Reason for Visit * Reason Comments Med Refill Encounter Details Date Type Department Care Team (Late st Contact Info) Description 08/08/2024 Refill [facility], [address] [facility] [place] [address] Bi Alfonso MD [address] [facility] [place] [phone] Social History Tobacco Use Types Packs/Day Years Used Date Smoking Tobacco: Former Cigarettes 0 Q uit: 10/24/2011 Smokeless Tobacco: Never Alcohol [...] on filedocumented in this encounter Care Teams Bushler Relationship Specialty Start Date End Date Tri Perez PA-C [address] [place] [address] PCP - General Physician Spooler Operator Automatic 09/19/23 documented as of this encounter
--- OUTSIDE RECORDS SUMMARY | 2025-09-18 08:32 | XMS_ITS | Encounter Summary ---
Author Organization [facility] Address [address] [facility] 200 [place] [address] Phone Care Team Providers Care Etcher Photoengraving Name Role Phone Tri Perez PA-C Primary Care Provider +1- [phone] Reason for Visit * Reason Comments Med Refill Encounter Details Date Type Department Care Team ([facility] st Contact Info) Description 08/28/2022 Refill [facility] [address] [facility] [address] [place] [phone] Sudheer Hartman MD 35[address] [facility] [address] [place] [phone] Social History Tobacco Use Types Packs/Day Years [...] filedocumented in this encounter Care Teams Etcher Photoengraving Relationship Specialty Start Date End Date Tri Perez PA-C [address] [place] [address] PCP - General Physician It Software Engineer 09/19/23 documented as of this encounter
--- OUTSIDE RECORDS SUMMARY | 2025-09-18 08:32 | XMS_ITS | Clinical Summary ---
Author Organization [facility] Address 100 [facility] [address] [place] [address] Phone Care Team Providers Care Tip Scourer Name Role Phone Tri Perez PA-C Primary Care Provider +1- [phone] Allergies Active Allergy Reactions Criticality Noted Date [...] 0 Q uit: 10/24/2011 Smokeless Tobacco: Never Tobacco [...] Medicaid [place] Medicare Medicaid [place] Care Teams Tip Scourer Relationship Specialty Start Date End Date Tri Perez PA-C [address] [place] [address] PCP - General Physician Drying Machine Operator Package Yarns 09/19/23
--- OUTSIDE RECORDS SUMMARY | 2025-09-18 08:32 | XMS_ITS | Encounter Summary ---
Author Organization [facility] [place], Address [address] [address] Phone Care Team Providers Care Electronic Security Specialist Name Role Phone Tri Perez PA-C Primary Care Provider +1- [phone] Reason for Visit * Reason Comments Med Refill Encounter Details Date Type Department Care Team (Late st Contact Info) Description 07/05/2024 Refill [facility], [address] [facility] [place] [address] Bi Alfonso MD [address] [facility] [place] [phone] Social History Tobacco Use Types Packs/Day Years [...] on filedocumented in this encounter Care Teams Electronic Security Specialist Relationship Specialty Start Date End Date Tri Perez PA-C [address] [place] [address] PCP - General Physician Plastics Fabricator And Assembler 09/19/23 documented as of this encounter
--- OUTSIDE RECORDS SUMMARY | 2025-09-18 08:32 | XMS_ITS | Encounter Summary ---
Author Organization [facility] [place], Address [address] [address] Phone Care Team Providers Care Nurse First Aid Name Role Phone Tri Perez PA-C Primary Care Provider +1- [phone] Encounter Details Date Type Department Care Team (Late st Contact Info) Description 10/18/2023 Documentation Only [facility], [address] [place] [address] Bi Alfonso MD [address] [place] [phone] Social History Tobacco Use Types Packs/Day Years [...] on filedocumented in this encounter Care Teams Nurse First Aid Relationship Specialty Start Date End Date Tri Perez PA-C [address] [place] [address] PCP - General Physician Spring Layer 09/19/23 documented as of this encounter
--- OUTSIDE RECORDS SUMMARY | 2025-09-18 08:32 | XMS_ITS | Encounter Summary ---
Author Organization [facility] Address 100 [facility] 200 [place] [address] Phone Care Team Providers Care Infection Prevention Specialist Name Role Phone Tri Perez PA-C Primary Care Provider +1- [phone] Reason for Visit * Reason Comments Med Refill Encounter Details Date Type Department Care Team ([facility] st Contact Info) Description 03/13/2022 Refill [facility] 100 [facility] 200 [place] [phone] Sudheer Hartman MD [address] [facility] [address] [place] [phone] Social History Tobacco Use Types Packs/Day Years [...] on filedocumented in this encounter Care Teams Infection Prevention Specialist Relationship Specialty Start Date End Date Tri Perez PA-C [address] [place] [address] PCP - General Physician Road Sign Installer 09/19/23 documented as of this encounter
--- OUTSIDE RECORDS SUMMARY | 2025-09-18 08:32 | XMS_ITS | Encounter Summary ---
Author Organization [facility], Address [address] [place] [address] Phone Care Team Providers Care Pick Up And Delivery Driver Name Role Phone Tri Perez PA-C Primary Care Provider [phone]- [phone] Encounter Details Date Type Department Care Team (Late st Contact Info) Description 11/25/2023 Documentation Only [facility], [address] [place] [address] Tor Alfred, DO [address] [place] [address] Social History Tobacco Use Types [...] on filedocumented in this encounter Care Teams Pick Up And Delivery Driver Relationship Specialty Start Date End Date Tri Perez PA-C [address] [place] [address] PCP - General Physician Technical Documentation Specialist 09/19/23 documented as of this encounter
[2025-09-18 11:11] LABS: MANUAL DIFF FLAG NO
[2025-09-18 11:16] LABS: Protein/Creatinine Ratio, Ur 0.23 (<0.2); Total Protein Urine Random 22 mg/dL (<12)
[2025-09-18 11:29] LABS: Hematocrit 49.6 % (42.0-52.0); Hemoglobin 15.4 g/dl (14.0-18.0); Imm Gran Abs Auto 0.02 X10*3/uL (0.00-0.03); Imm Gran Pct Auto 0.3 % (0.0-0.4); Lymphocytes Absolute Auto 2.3 X10*3/uL (1.2-4.9); Mean Corpuscular HGB Conc 31.0 g/dl (31.0-36.0); Mean Corpuscular Hemoglobin 26.2 pg (27.0-33.0); Mean Corpuscular Volume 84.5 fL (80.0-98.0); NRBC Abs Auto 0.000 X10*3/uL (0.0-0.012); NRBC Pct Auto 0.0 /100WBC (0.0-0.2); Platelet Count 163 X10*3/uL (160-400); Red Blood Count 5.87 X10*6/uL (4.60-5.80); White Blood Count 6.6 X10*3/uL (4.8-10.8)
[2025-09-18 12:41] LABS: Alanine Aminotransferase 27 U/L (0-40); Anion Gap 13 (12-20); Aspartate Amino Transferase 31 U/L (5-37); Blood Urea Nitrogen 24 mg/dL (9-16); Calcium 9.7 mg/dL (8.4-10.2); Carbon Dioxide 26 mmol/L (22-29); Chloride 106 mmol/L (96-108); Cholesterol 159 mg/dL (<200); Estimated Glomerular Filt Rate 50; HDL Cholesterol 34 mg/dL (>40); Magnesium 1.7 mg/dL (1.6-2.6); Sodium 142 mmol/L (135-145); Triglycerides 184 mg/dL (<150)
[2025-09-18 12:42] LABS: Potassium 2.8 mmol/L (3.3-5.1)
[2025-09-19 13:14] LABS: Tacrolimus Prograf 6.7 mcg/L
== END 2025-09-18 08:17 | disposition home or self-care (01) ==
LOC: HO.10HDL 08:16
PROVIDERS: Visit Provider Internal Medicine Nephrology
DX: I10 Essential (primary) hypertension (principal); E87.6 Hypokalemia; Z94.0 Kidney transplant status
CPT/HCPCS: 36415; 80051; 80061; 80197; 82310; 82565; 82570; 83735; 84100; 84156; 84450; 84460; 84520; 85025

== ENCOUNTER 2025-09-25 15:26 | Outpatient (AMB) | payer MEDICARE, OTHER, SELFPAY ==
--- NOTE | 2025-09-25 15:29 | HO.NEPHOV_ITS ---
Vital Signs 09/25/25 15:37 Height 5 ft 5 in Weight 207 lb BMI 34.4 BP 110/70 Blood Pressure Location Rt brachial Position Sitting Pulse 72 Pulse Source Pulse Oximeter Pulse Oximetry (%) 95 Oxygen Delivery Method Room Air Intake Visit Reasons: 2mon Transplant f/u w/labs-Conf Spanish Language Lecturer Required: No Accompanied by: Self / Same As Patient Allergies Penicillins Allergy (Mild, Verified 09/25/25 15:37) Unknown HPI Comments Details: Pablo was in follow-up of his renal transplant. 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 He underwent living unrelated renal transplant on 09/20/2023. He had stent removed on 10/10/2023. He had a panel reactive antibody of 25. Induction was done with [place]. He had no delayed graft function. He required no dialysis treatment post transplant. CMV status of the donor was positive and recipient was positive as well. EBV status of the donor was negative and recipient was positive. Hepatitis-B core antibody for donor and recipient was negative. Hepatitis C virus antibody was negative for donor and recipient. Bk virus PCR was negative as of 12/21/2023. His immunosuppression included Envarsus and Mycophenolate. He did not have any rejection episodes post transplant. He had some fluctuant blood pressure in the last few months which has been better. He had transaminitis which is resolved. His donor specific antibodies were negative as of 12/13/2023. His immunosuppression included Envarsus 2.5 mg daily and mycophenolate 540 mg twice daily. His Prophylaxis Therapy included (Drug/Discontinuation Date) bactrim d/c ed 03/21/24, mycelex d/c ed 12/22/23 & v alcyte d/c ed 03/16/24. He had no readmissions the 1st 3 months. Currently he feels well. He is compliant with medications. [facility] Medical History (Updated 03/08/25 @ 16:04 by Harish Lentz MD) History of hepatitis C History of end stage renal disease Surgical History History of kidney transplant Review of Systems Const All systems reviewed & are unremarkable except as noted in HPI and below Physical Exam Const General: comfortable and no acute distress Orientation/consciousness: patient oriented x3 HEENT Head: Yes normocephalic Mouth: Normal oral and palatal mucosa present Eyes EOM: EOMs intact bilaterally Neck Neck: Yes supple Resp Auscultation: clear to auscultation bilaterally Cardio Jugular venous distension: no JVD Rate: regular rate Heart sounds: Murmur heart sound present GI Palpation (GI): Soft to palpation Auscultation: normal bowel sounds General: Yes no CVA tenderness Back/Spine/Pelvis Back: no CVA tenderness Skin General skin exam: no rashes or lesions noted Neuro General: patient oriented x3 and moves all extremities Extrem General: Yes no pedal edema Results Reviewed Nephrology Results: Hgb, (14.0-18.0) 15.4 g/dl 09/18/25 WBC, (4.8-10.8) 6.6 X10*3/uL 09/18/25 Plt Count, (160-400) 163 X10*3/uL 09/18/25 Sodium, (135-145) 142 mmol/L 09/18/25 Potassium, (3.3-5.1) 2.8 mmol/L L* 09/18/25 Chloride, (96-108) 106 mmol/L 09/18/25 Carbon Dioxide, (22-29) 26 mmol/L 09/18/25 BUN, (9-16) 24 mg/dL H 09/18/25 Creatinine, (0.5-1.4) 1.48 mg/dL H 09/18/25 Calcium, (8.4-10.2) 9.7 mg/dL 09/18/25 Phosphorus, (2.7-4.5) 2.9 mg/dL 09/18/25 PTH Intact, (8.7-77.1) 108.9 pg/mL H 07/08/25 Urine Creatinine 95.32 mg/dL 09/18/25 Protein/Creatinin Ratio, (<0.2) 0.23 H 09/18/25 Assessment & Plan Assessment & Plan (1) History of kidney transplant: Code(s): Z94.0 - Kidney transplant status Category: Surgical (2) Hypokalemia: Code(s): E87.6 - Hypokalemia Category: Medical (3) Hypertension: Code(s): I10 - Essential (primary) hypertension Category: Medical Qualifiers: Hypertension type: primary hypertension Qualified Code(s): I10 - Essential (primary) hypertension Plan 1. Allograft function: excellent function; serum creatinine stable 2. Immunosuppression: tolerating; monitoring levels; adjust accordingly; Prophylaxis Therapy included (Drug/Discontinuation Date) bactrim d/c ed 03/21/24, mycelex d/c ed 12/22/23 & valcyte d/c ed 03/16/24. C/W tacrolimus 2 mg daily 3. BP and volume status: Vol status optimal. BP at goal; Reduced Nifedipine to 30 mg( shall wean off). Started Spironolactone 25 mg given HTN and hypokalemia 4. Metabolic parameters: stable; follow up labs 5. Hematologic parameters: counts excellent 6. Other: needs to increase activity; weight loss emphasized 7. Hypokalemia- K replaced; Started Spironolactone 25 mg daily Orders: Orders Complete Blood Count Auto Diff 2 Months E87.6 - Hypokalemia, I10 - Essential ( primary) hypertension, Z94.0 - Kidney transplant status Tacrolimus Prograf 2 Months E87.6 - Hypokalemia, I10 - Essential (primary) hypertension, Z94.0 - Kidney transplant status Calcium 2 Months E87.6 - Hypokalemia, I10 - Essential (primary) hypertension, Z94.0 - Kidney transplant status Electrolytes 2 Months E87.6 - Hypokalemia, I10 - Essential (primary) hypertension, Z94.0 - Kidney transplant status Blood Urea Nitrogen 2 Months E87.6 - Hypokalemia, I10 - Essential (primary) hypertension, Z94.0 - Kidney transplant status Creatinine 2 Months E87.6 - Hypokalemia, I10 - Essential (primary) hypertension, Z94.0 - Kidney transplant status Magnesium 2 Months E87.6 - Hypokalemia, I10 - Essential (primary) hypertension, Z94.0 - Kidney transplant status Phosphorus 2 Months E87.6 - Hypokalemia, I10 - Essential (primary) hypertension, Z94.0 - Kidney transplant status Electrolytes 1 Month E87.6 - Hypokalemia Medications: New spironolactone 25 mg PO DAILY 30 days 30 tabs 6RF spironolactone 25 mg PO DAILY 30 tabs 6RF 30 days Coding Level of Care Code Est Pt Level 4 (63266) Diagnoses History of kidney transplant Z94.0 Hypokalemia E87.6 Primary hypertension I10 Hypertension type: primary hypertension
[2025-09-25 15:37] VITALS: BP 110/70; PULSE 72; O2SAT 95; BMI 34.4
== END 2025-09-25 15:57 | disposition home or self-care (01) ==
LOC: HO.HKA 15:27
PROVIDERS: PCP Physician Assistant; Visit Provider Internal Medicine Nephrology
DX: Z94.0 Kidney transplant status (principal); E87.6 Hypokalemia; I10 Essential (primary) hypertension
CPT/HCPCS: 99214

== ENCOUNTER → 2025-09-25 15:26 | Outpatient (BNVA) | payer OTHER, SELFPAY | PROVIDERS: PCP Physician Assistant; Visit Provider Internal Medicine Nephrology | DX: I10 Essential (primary) hypertension (principal); E87.6 Hypokalemia; Z94.0 Kidney transplant status | CPT/HCPCS: 99212 ==